=== PATIENT | female | born 1965 | race American Indian/Alaskan Native ===

== ENCOUNTER 2016-07-08 02:05 | Emergency (ER) | payer MEDICAID, OTHER ==
[2016-07-08] MEDS ORDERED: Ondansetron 4 MG/2 ML SDV IVPUSH ONE (02:51)
[2016-07-08] MEDS ORDERED: MVI, Adult with Vitamin K 10 ML, Thiamine 200 MG, Folic Acid 1 MG, Magnesium Sulfate 2 ... IV ONE ×5 (02:53)
[2016-07-08] MEDS: LORazepam 2 MG/ML MDV IVPUSH PRN ×2 (03:05→06:50)
[2016-07-08] MEDS ORDERED: Sodium Chloride 0.9% 10 ML Syringe FLUSH PRN (03:05)
--- NOTE | 2016-07-08 03:10 | EDM.PDOC ---
ED HPI GENERAL MEDICAL PROBLEM - General Chief Complaint: Behavioral/Psych Stated Complaint: MEDICAL VIA [facility] Time Seen by Provider: 07/08/16 03:05 Source of Information: Reports: Patient, Old records, RN notes reviewed History Limitations: Reports: No limitations - History of Present Illness INITIAL COMMENTS - FREE TEXT/NARRATIVE: 51-year-old female presents emergency department today complaining of alcohol withdrawal last used alcohol 3 hours prior has been on a 3 week binge of alcohol is willing to go to [facility] facility, complains of nausea vomiting and shaking Generalized Pain Score (Numeric/FACES): 6 - Related Data Allergies Allergy/AdvReac Type Severity Reaction Status Date / Time niacin Allergy Hives Verified 07/08/16 02:17 Penicillins Allergy Hives Verified 07/08/16 02:17 lisinopril AdvReac Cough Verified 07/08/16 02:17 Home Meds: Home Meds Ascorbic Acid [Vitamin C] 500 mg PO DAILY 09/11/14 [History] Aspirin [Aspirin EC] 81 mg PO DAILY 09/11/14 [History] DULoxetine [Cymbalta] 30 mg PO DAILY 09/11/14 [History] Gabapentin 600 mg PO QID 09/11/14 [History] Insulin Detemir [Levemir Flextouch] 50 units SQ BID 09/11/14 [History] LORazepam 1 - 2 mg PO QID PRN 09/11/14 [History] Losartan [Cozaar] 100 mg PO DAILY 09/11/14 [History] Metoprolol Succinate [Toprol XL] 25 mg PO DAILY 09/11/14 [History] Multivitamins/Iron/Folic Acid [Cerovite Advanced Formula] 1 tab PO DAILY [History] Insulin Aspart [Novolog Flexpen] 1 dose SUBCUT ASDIRECTED 04/07/15 [History] Omeprazole 20 mg PO DAILY 07/08/16 [History] Past Medical History Cardiovascular History: Reports: CAD, High cholesterol, Hypertension, [place] Gastrointestinal History: Reports: Cholelithiasis Other Genitourinary History: decreased kidney function [employer] History: Reports: Dysfunctional uterine bleeding, , Other (see below) Other OB/BYN History: Past heavy vaginal bleeding Musculoskeletal History: Reports: Back pain, chronic Other Musculoskeletal History: spinal infection Neurological History: Reports: Concussion Other Neuro History: unable to obtain Psychiatric History: Reports: Addiction (Alcohol), Anxiety, Depression Endocrine/Metabolic History: Reports: Diabetes, type II Hematologic History: Reports: Blood transfusion(s) Other Hematologic History: unable to obtain Dermatologic History: Reports: Psoriasis - Infectious Disease History Infectious Disease History: Reports: Chicken pox, Measles, Mumps Other Infectious Disease History: unable to obtain - Past Surgical History GI Surgical History: Reports: Appendectomy, Cholecystectomy Social & Family History - Family History Family Medical History: Unobtainable - Tobacco Use Smoking Status *Q: Current Every Day Smoker Years of Tobacco use: 30 Packs/Tins Daily: 0.5 Used Tobacco, but Quit: No Second Hand Smoke Exposure: Yes - Caffeine Use Caffeine Use: Reports: Coffee, Soda - Alcohol Use Days Per Week of Alcohol Use: 7 Number of Drinks Per Day: 20 Total Drinks Per Week: 140 Date of Last Drink: 07/08/16 Time of Last Drink: 00:30 - Recreational Drug Use Recreational Drug Use: No Recreational Drug Use Frequency: Patient Refuses To Answer ED ROS GENERAL - Review of Systems Review Of Systems: See Below Constitutional: Reports: decreased appetite HEENT: Reports: No symptoms Respiratory: Reports: No Symptoms Cardiovascular: Reports: No symptoms GI/Abdominal: Reports: Nausea, Vomiting : Reports: no symptoms Musculoskeletal: Reports: no symptoms Skin: Reports: no symptoms Neurological: Reports: Tremors Psychiatric: Reports: Agitation ED EXAM, GENERAL - Physical Exam Exam: See Below Exam Limited By: No limitations General Appearance: alert, moderate distress Eye Exam: bilateral eye: normal inspection Throat/Mouth: Normal inspection, Normal lips, Normal teeth, Normal gums, Normal oropharynx, Normal voice, No airway compromise Head: atraumatic, normocephalic Neck: normal inspection, supple, non-tender, full range of motion Respiratory/Chest: no respiratory distress, lungs clear, normal breath sounds, no accessory muscle use Cardiovascular: regular rate, rhythm, no murmur GI/Abdominal: normal bowel sounds, soft, non tender, no organomegaly, no distention, no abnormal bruit, no mass Extremities: normal inspection, no pedal edema Course - Vital Signs Last Recorded V/S: Last Vital Signs Temp 97.2 F 07/08/16 06:13 Pulse 121 H 07/08/16 06:13 Resp 16 07/08/16 06:13 BP 142/86 H 07/08/16 06:13 Pulse Ox 99 07/08/16 06:13 - Orders/Labs/Meds Orders: Active Orders 24 hr Category Date Time Status Peripheral IV Care [RC] . DIRECTED Care 07/08/16 03:05 Active LORazepam [Ativan] Med 07/08/16 02:51 Active 1 mg IVPUSH Q1H PRN Sodium Chloride 0.9% [Saline Flush] Med 07/08/16 03:05 Active 10 ml FLUSH ASDIRECTED PRN Peripheral IV Insertion Adult [OM.PC] Urgent Oth 07/08/16 03:05 Ordered Medication Orders Lorazepam (Ativan) 1 mg IVPUSH Q1H PRN PRN Reason: Anxiety Last Admin: 07/08/16 03:05 Dose: 1 mg Sodium Chloride (Saline Flush) 10 ml FLUSH ASDIRECTED PRN PRN Reason: Keep Vein Open Labs: Laboratory Tests 07/08/16 07/08/16 07/08/16 Range/Units 03:16 03:16 03:16 WBC 10.1 (4.5-11.0) K/uL RBC 4.21 (3.30-5.50) M/uL Hgb 12.4 D (12.0-15.0) g/dL Hct 37.2 (36.0-48.0) % MCV 88 (80-98) fL MCH 30 (27-31) pg MCHC 33 (32-36) % Plt Count 188 (150-400) K/uL Neut % (Auto) 65 (36-66) % Lymph % (Auto) 28 (24-44) % [place] % (Auto) 6 (2-6) % Eos % (Auto) 1 L (2-4) % Baso % (Auto) 1 (0-1) % PT (9.5-12.0) sec INR (0.80-1.20) Sodium 141 (140-148) mmol/L Potassium 4.1 (3.6-5.2) mmol/L Chloride 100 (100-108) mmol/L Carbon Dioxide 27 (21-32) mmol/L Anion Gap 13.6 (5.0-14.0) mmol/L BUN 11 (7-18) mg/dL Creatinine 0.9 (0.6-1.0) mg/dL Est Cr Clr Drug Dosing 64.58 mL/min Estimated GFR (MDRD) > 60 (>60) Glucose 349 H (74-106) mg/dL Calcium 8.5 (8.5-10.1) mg/dL Total Bilirubin 0.4 D (0.2-1.0) mg/dL AST 41 H (15-37) U/L ALT 43 (12-78) U/L Alkaline Phosphatase 135 H (46-116) U/L Ammonia (11-32) mmol/L Troponin I (0.000-0.056) ng/mL Total Protein 8.2 (6.4-8.2) g/dL Albumin 3.8 (3.4-5.0) g/dL Globulin 4.4 H (2.3-3.5) g/dL Albumin/Globulin Ratio 0.9 L (1.2-2.2) Lipase (73-393) U/L Urine Color Urine Appearance Urine pH (4.5-8.0) Ur Specific [place] (1.008-1.030) Urine Protein (NEGATIVE) mg/dL Urine Glucose (UA) (NEGATIVE) mg/dL Urine Ketones (NEGATIVE) mg/dL Urine Occult Blood (NEGATIVE) Urine Nitrite (NEGATIVE) Urine Bilirubin (NEGATIVE) Urine Urobilinogen (NORMAL) mg/dL Ur Leukocyte Esterase (NEGATIVE) Urine RBC (0-5) Urine WBC (0-5) Ur Epithelial Cells Amorphous Sediment Urine Bacteria Urine Mucus Urine Opiates Screen (NEGATIVE) Ur Oxycodone Screen (NEGATIVE) Urine Methadone Screen (NEGATIVE) Ur Propoxyphene Screen (NEGATIVE) Ur Barbiturates Screen (NEGATIVE) Ur Tricyclics Screen (NEGATIVE) Ur Phencyclidine Scrn (NEGATIVE) Ur Amphetamine Screen (NEGATIVE) U Methamphetamines Scrn (NEGATIVE) Urine MDMA Screen (NEGATIVE) U Benzodiazepines Scrn (NEGATIVE) U Cocaine Metab Screen (NEGATIVE) U Marijuana (THC) Screen (NEGATIVE) Ethyl Alcohol 119 mg/dL 07/08/16 07/08/16 07/08/16 Range/Units 03:16 03:16 03:16 WBC (4.5-11.0) K/uL RBC (3.30-5.50) M/uL Hgb (12.0-15.0) g/dL Hct (36.0-48.0) % MCV (80-98) fL MCH (27-31) pg MCHC (32-36) % Plt Count (150-400) K/uL Neut % (Auto) (36-66) % Lymph % (Auto) (24-44) % [place] % (Auto) (2-6) % Eos % (Auto) (2-4) % Baso % (Auto) (0-1) % PT 11.5 (9.5-12.0) sec INR 1.08 (0.80-1.20) Sodium (140-148) mmol/L Potassium (3.6-5.2) mmol/L Chloride (100-108) mmol/L Carbon Dioxide (21-32) mmol/L Anion Gap (5.0-14.0) mmol/L BUN (7-18) mg/dL Creatinine (0.6-1.0) mg/dL Est Cr Clr Drug Dosing mL/min Estimated GFR (MDRD) (>60) Glucose (74-106) mg/dL Calcium (8.5-10.1) mg/dL Total Bilirubin (0.2-1.0) mg/dL AST (15-37) U/L ALT (12-78) U/L Alkaline Phosphatase (46-116) U/L Ammonia 18 (11-32) mmol/L Troponin I (0.000-0.056) ng/mL Total Protein (6.4-8.2) g/dL Albumin (3.4-5.0) g/dL Globulin (2.3-3.5) g/dL Albumin/Globulin Ratio (1.2-2.2) Lipase 207 (73-393) U/L Urine Color Urine Appearance Urine pH (4.5-8.0) Ur Specific [place] (1.008-1.030) Urine Protein (NEGATIVE) mg/dL Urine Glucose (UA) (NEGATIVE) mg/dL Urine Ketones (NEGATIVE) mg/dL Urine Occult Blood (NEGATIVE) Urine Nitrite (NEGATIVE) Urine Bilirubin (NEGATIVE) Urine Urobilinogen (NORMAL) mg/dL Ur Leukocyte Esterase (NEGATIVE) Urine RBC (0-5) Urine WBC (0-5) Ur Epithelial Cells Amorphous Sediment Urine Bacteria Urine Mucus Urine Opiates Screen (NEGATIVE) Ur Oxycodone Screen (NEGATIVE) Urine Methadone Screen (NEGATIVE) Ur Propoxyphene Screen (NEGATIVE) Ur Barbiturates Screen (NEGATIVE) Ur Tricyclics Screen (NEGATIVE) Ur Phencyclidine Scrn (NEGATIVE) Ur Amphetamine Screen (NEGATIVE) U Methamphetamines Scrn (NEGATIVE) Urine MDMA Screen (NEGATIVE) U Benzodiazepines Scrn (NEGATIVE) U Cocaine Metab Screen (NEGATIVE) U Marijuana (THC) Screen (NEGATIVE) Ethyl Alcohol mg/dL 07/08/16 07/08/16 07/08/16 Range/Units 03:16 06:11 06:12 WBC (4.5-11.0) K/uL RBC (3.30-5.50) M/uL Hgb (12.0-15.0) g/dL Hct (36.0-48.0) % MCV (80-98) fL MCH (27-31) pg MCHC (32-36) % Plt Count (150-400) K/uL Neut % (Auto) (36-66) % Lymph % (Auto) (24-44) % [place] % (Auto) (2-6) % Eos % (Auto) (2-4) % Baso % (Auto) (0-1) % PT (9.5-12.0) sec INR (0.80-1.20) Sodium (140-148) mmol/L Potassium (3.6-5.2) mmol/L Chloride (100-108) mmol/L Carbon Dioxide (21-32) mmol/L Anion Gap (5.0-14.0) mmol/L BUN (7-18) mg/dL Creatinine (0.6-1.0) mg/dL Est Cr Clr Drug Dosing mL/min Estimated GFR (MDRD) (>60) Glucose (74-106) mg/dL Calcium (8.5-10.1) mg/dL Total Bilirubin (0.2-1.0) mg/dL AST (15-37) U/L ALT (12-78) U/L Alkaline Phosphatase (46-116) U/L Ammonia (11-32) mmol/L Troponin I 0.064 H* (0.000-0.056) ng/mL Total Protein (6.4-8.2) g/dL Albumin (3.4-5.0) g/dL Globulin (2.3-3.5) g/dL Albumin/Globulin Ratio (1.2-2.2) Lipase (73-393) U/L Urine Color Yellow Urine Appearance Clear Urine pH 6.0 (4.5-8.0) Ur Specific [place] 1.015 (1.008-1.030) Urine Protein Negative (NEGATIVE) mg/dL Urine Glucose (UA) 1000 H (NEGATIVE) mg/dL Urine Ketones Negative (NEGATIVE) mg/dL Urine Occult Blood Negative (NEGATIVE) Urine Nitrite Negative (NEGATIVE) Urine Bilirubin Negative (NEGATIVE) Urine Urobilinogen Normal (NORMAL) mg/dL Ur Leukocyte Esterase Negative (NEGATIVE) Urine RBC 0-5 (0-5) Urine WBC 0-5 (0-5) Ur Epithelial Cells Few Amorphous Sediment Few Urine Bacteria Rare Urine Mucus Few Urine Opiates Screen Negative (NEGATIVE) Ur Oxycodone Screen Negative (NEGATIVE) Urine Methadone Screen Negative (NEGATIVE) Ur Propoxyphene Screen Negative (NEGATIVE) Ur Barbiturates Screen Negative (NEGATIVE) Ur Tricyclics Screen Negative (NEGATIVE) Ur Phencyclidine Scrn Negative (NEGATIVE) Ur Amphetamine Screen Negative (NEGATIVE) U Methamphetamines Scrn Negative (NEGATIVE) Urine MDMA Screen Negative (NEGATIVE) U Benzodiazepines Scrn Positive H (NEGATIVE) U Cocaine Metab Screen Negative (NEGATIVE) U Marijuana (THC) Screen Negative (NEGATIVE) Ethyl Alcohol mg/dL Meds: Medications Generic Name Dose Route Start Last Admin Trade Name Freq PRN Reason Stop Dose Admin Lorazepam 1 mg 07/08/16 02:51 07/08/16 03:05 Ativan IVPUSH 1 mg Q1H PRN Administration Anxiety Sodium Chloride 10 ml 07/08/16 03:05 Saline Flush FLUSH ASDIRECTED PRN Keep Vein Open Discontinued Medications Generic Name Dose Route Start Last Admin Trade Name Freq PRN Reason Stop Dose Admin Multivitamins/Minerals 10 ml/ 1,016.2 mls @ 500 mls/hr 07/08/16 02:53 03:21 Thiamine HCl 200 mg/ Folic IV 07/08/16 04:54 500 mls/hr Acid 1 mg/ Magnesium Sulfate 2 ONETIME ONE Administration gm/ Dextrose/Lactated Ringer' s Ondansetron HCl 4 mg 07/08/16 02:51 07/08/16 03:25 Zofran IVPUSH 07/08/16 02:52 4 mg ONETIME ONE Administration Departure - Departure Time of Disposition: 06:43 Disposition: DC/Tfer to Inpt Rehab Fac 62 Condition: fair Clinical Impression: Alcohol abuse Referrals: PCP,None [Primary Care Provider] - Forms: ED Department Discharge - My Orders Last 24 Hours: My Active Orders 07/08/16 02:51 LORazepam [Ativan] 1 mg IVPUSH Q1H PRN 07/08/16 03:05 Peripheral IV Care [RC] . DIRECTED Sodium Chloride 0.9% [Saline Flush] 10 ml FLUSH ASDIRECTED PRN Peripheral IV Insertion Adult [OM.PC] Urgent - Assessment/Plan Last 24 Hours: My Active Orders 07/08/16 02:51 LORazepam [Ativan] 1 mg IVPUSH Q1H PRN 07/08/16 03:05 Peripheral IV Care [RC] . DIRECTED Sodium Chloride 0.9% [Saline Flush] 10 ml FLUSH ASDIRECTED PRN Peripheral IV Insertion Adult [OM.PC] Urgent Plan: Assessment Acuity = chronic Site and laterality = alcohol abuse and dependence Etiology = EtOH Manifestations = none Location of injury = home Lab values = CBC, CMP within normal limits troponin elevated at 0.64 this is chronic, alcohol 113 Plan She will be transported to [facility] in the morning for detoxification Patient was in agreement with the plan all questions were answered, they were instructed to return to the emergency department or call for worsening symptoms. This note was dictated using [employer] voice recognition software please call with any questions.
[2016-07-08 06:55] VITALS: BP 148/84
== END 2016-07-08 07:06 ==
LOC: JP.ED 02:05
DX: F10.10 Alcohol abuse, uncomplicated (principal); I25.2 Old myocardial infarction; I25.10 Atherosclerotic heart disease of native coronary artery without angina pectoris; I10 Essential (primary) hypertension; F41.9 Anxiety disorder, unspecified; F32.9 Major depressive disorder, single episode, unspecified; E78.00 Pure hypercholesterolemia, unspecified; E11.9 Type 2 diabetes mellitus without complications; F17.210 Nicotine dependence, cigarettes, uncomplicated; Z79.82 Long term (current) use of aspirin; Z79.4 Long term (current) use of insulin; Z79.899 Other long term (current) drug therapy; Z90.49 Acquired absence of other specified parts of digestive tract; Z88.0 Allergy status to penicillin; Z88.8 Allergy status to other drugs, medicaments and biological substances
CPT/HCPCS: 36415; 80053; 80305; 81001; 82140; 83690; 84484; 85025; 85610; 96365; 96366; 96375; 99285; G0480; J2060; J2405; J3411; J3475; J7042; J7050; J3490

== ENCOUNTER 2016-11-02 23:48 | Emergency (ER) | payer MEDICAID ==
[2016-11-03] MEDS ORDERED: Ondansetron 4 MG/2 ML SDV IVPUSH ONE (00:30)
[2016-11-03] MEDS ORDERED: LORazepam 2 MG/ML MDV IVPUSH ONE (00:30)
--- NOTE | 2016-11-03 00:33 | EDM.PDOC ---
ED HPI GENERAL MEDICAL PROBLEM - General Chief Complaint: Diabetic Complaint Stated Complaint: [facility] Time Seen by Provider: 11/03/16 00:22 Source of Information: Reports: Patient, Family, RN Notes Reviewed History Limitations: Reports: No Limitations - History of Present Illness INITIAL COMMENTS - FREE TEXT/NARRATIVE: 51-year-old female presents emergency department today via EMS services for elevated blood sugar, initial reading by blood sugar was off the scale she states she's concerned she may be getting sick has been having trouble with her blood sugar over the last couple of days denies any fevers shortness breath or chest pain. Is quite anxious and is concerned she may be having a panic attack back pain Pain Score (Numeric/FACES): 7 - Related Data Allergies Allergy/AdvReac Type Severity Reaction Status Date / Time niacin Allergy Hives Verified 11/03/16 00:01 Penicillins Allergy Hives Verified 11/03/16 00:01 lisinopril AdvReac Cough Verified 11/03/16 00:01 Home Meds: Home Meds Ascorbic Acid [Vitamin C] 500 mg PO DAILY 09/11/14 [History] Aspirin [Aspirin EC] 81 mg PO DAILY 09/11/14 [History] DULoxetine [Cymbalta] 30 mg PO DAILY 09/11/14 [History] Gabapentin 600 mg PO QID 09/11/14 [History] Insulin Detemir [Levemir Flextouch] 50 units SQ BID 09/11/14 [History] LORazepam 1 - 2 mg PO QID PRN 09/11/14 [History] Losartan [Cozaar] 100 mg PO DAILY 09/11/14 [History] Metoprolol Succinate [Toprol XL] 25 mg PO DAILY 09/11/14 [History] Multivitamins/Iron/Folic Acid [Cerovite Advanced Formula] 1 tab PO DAILY [History] Insulin Aspart [Novolog Flexpen] 1 dose SUBCUT ASDIRECTED 04/07/15 [History] Omeprazole 20 mg PO DAILY 07/08/16 [History] Past Medical History HEENT History: Reports: Impaired Vision Cardiovascular History: Reports: CAD, High Cholesterol, Hypertension, [place] Gastrointestinal History: Reports: Cholelithiasis Genitourinary History: Reports: Other (See Below) Other Genitourinary History: decreased kidney function [employer] History: Reports: Dysfunctional Uterine Bleeding, , Other (See Below) Other OB/BYN History: Past heavy vaginal bleeding Musculoskeletal History: Reports: Back Pain, Chronic Other Musculoskeletal History: spinal infection Neurological History: Reports: Concussion Other Neuro History: unable to obtain Psychiatric History: Reports: Addiction, Anxiety, Depression Endocrine/Metabolic History: Reports: Diabetes, Type II Hematologic History: Reports: Blood Transfusion(s) Other Hematologic History: unable to obtain Immunologic History: Reports: Other (See Below) Other Immunologic History: unable to obtain Oncologic (Cancer) History: Reports: Other (See Below) Other Oncologic History: unable to obtain Dermatologic History: Reports: Psoriasis - Infectious Disease History Infectious Disease History: Reports: Chicken Pox, Mumps Other Infectious Disease History: unable to obtain - Past Surgical History HEENT Surgical History: Reports: None Cardiovascular Surgical History: Reports: None GI Surgical History: Reports: Appendectomy, Cholecystectomy Social & Family History - Family History Family Medical History: Unobtainable - Tobacco Use Smoking Status *Q: Current Every Day Smoker Years of Tobacco use: 40 Packs/Tins Daily: 1 Used Tobacco, but Quit: No Second Hand Smoke Exposure: Yes - Caffeine Use Caffeine Use: Reports: Coffee, Energy Drinks, Soda, Tea - Alcohol Use Days Per Week of Alcohol Use: 7 Number of Drinks Per Day: 20 Total Drinks Per Week: 140 - Recreational Drug Use Recreational Drug Use: No Recreational Drug Use Frequency: Patient Refuses To Answer ED ROS GENERAL - Review of Systems Review Of Systems: See Below Constitutional: Denies: Fever, Chills HEENT: Reports: No Symptoms Respiratory: Reports: No Symptoms Cardiovascular: Reports: No Symptoms Endocrine: Reports: High Glucose GI/Abdominal: Reports: Nausea : Reports: No Symptoms Musculoskeletal: Reports: No Symptoms Skin: Reports: No Symptoms Neurological: Reports: No Symptoms ED EXAM GENERAL NO PERIP PULSE - Physical Exam Exam: See Below Text/Narrative:: General: Female, somnolent but arousable will answer questions appropriately, alert and oriented x3 HEENT: head is atraumatic normocephalic, . Ears tympanic membranes clear and turcios landmarks and light reflex are present bilaterally canals are clear. Nose no septal deviation, nares are clear, no blood present. Mouth mucosa is moist and pink no erythema or exudate noted in soft palate, tongue is midline uvula is midline, dentition is intact. Neck: Supple no thyromegaly no tracheal deviation. Nodes: Cervical nodes subclavicular nodes nontender no palpable lymphadenopathy noted. Lungs: clear to auscultation bilaterally with symmetrical respirations, no adventitious noise appreciated. CV: Regular rate and rhythm S1 and S2 appreciated no murmurs rubs or gallops noted. Abdomen: Soft, nontender, no palpable masses or organomegaly appreciated, no distention no guarding bowel sounds are present, . Neuro: Cranial nerves II through XII grossly intact Skin: Warm and dry, intact Extremities: No lower extremity edema appreciated, . Course - Vital Signs Last Recorded V/S: Last Vital Signs Temp 97.7 F 11/03/16 06:39 Pulse 105 H 11/03/16 06:39 Resp 16 11/03/16 06:39 BP 104/61 11/03/16 06:39 Pulse Ox 94 L 11/03/16 06:39 - Orders/Labs/Meds Labs: Laboratory Tests 11/03/16 11/03/16 11/03/16 Range/Units 00:40 00:40 00:40 WBC 8.2 (4.5-11.0) K/uL RBC 4.21 (3.30-5.50) M/uL Hgb 12.4 (12.0-15.0) g/dL Hct 36.4 (36.0-48.0) % MCV 87 (80-98) fL MCH 30 (27-31) pg MCHC 34 (32-36) % Plt Count 165 (150-400) K/uL Neut % (Auto) 63 (36-66) % Lymph % (Auto) 27 (24-44) % [place] % (Auto) 9 H (2-6) % Eos % (Auto) 0 L (2-4) % Baso % (Auto) 1 (0-1) % Puncture Site R brachial ABG pH 7.391 (7.350-7.450) ABG pCO2 39.2 (35.0-42.0) mmHg ABG pO2 66.0 L (75.0-100.0) mmHg ABG HCO3 23.2 (22.0-26.0) mmol/L ABG Total CO2 21.0 (21.0-25.0) mmol/L ABG O2 Saturation 91.1 L (95.0-98.0) % ABG O2 Content 15.1 (15.0-23.0) %vol ABG Base Excess -1.0 mm/L ABG Hemoglobin 12.5 (12.0-16.0) g/dL ABG Oxyhemoglobin 85.9 % ABG Carboxyhemoglobin 5.1 H (0.0-1.6) % ABG Methemoglobin 0.6 % O2 Delivery Device Oxygen Flow Rate 2 L Sodium 133 L (140-148) mmol/L Potassium 3.5 L (3.6-5.2) mmol/L Chloride 94 L (100-108) mmol/L Carbon Dioxide 24 (21-32) mmol/L Anion Gap 18.5 H (5.0-14.0) mmol/L BUN 11 (7-18) mg/dL Creatinine 1.3 H (0.6-1.0) mg/dL Est Cr Clr Drug Dosing TNP Estimated GFR (MDRD) 43 L (>60) Glucose 566 H* (74-106) mg/dL Lactic Acid (0.4-2.0) mmol/L Calcium 8.6 (8.5-10.1) mg/dL Total Bilirubin 0.3 (0.2-1.0) mg/dL AST 22 (15-37) U/L ALT 26 (12-78) U/L Alkaline Phosphatase 202 H (46-116) U/L Total Protein 8.1 (6.4-8.2) g/dL Albumin 3.2 L (3.4-5.0) g/dL Globulin 4.9 H (2.3-3.5) g/dL Albumin/Globulin Ratio 0.7 L (1.2-2.2) Urine Color Urine Appearance Urine pH (4.5-8.0) Ur Specific [place] (1.008-1.030) Urine Protein (NEGATIVE) mg/dL Urine Glucose (UA) (NEGATIVE) mg/dL Urine Ketones (NEGATIVE) mg/dL Urine Occult Blood (NEGATIVE) Urine Nitrite (NEGATIVE) Urine Bilirubin (NEGATIVE) Urine Urobilinogen (NORMAL) mg/dL Ur Leukocyte Esterase (NEGATIVE) Urine RBC (0-5) Urine WBC (0-5) Ur Epithelial Cells Amorphous Sediment Urine Bacteria Urine Mucus Ethyl Alcohol mg/dL Ketones (NEGATIVE) 11/03/16 11/03/16 11/03/16 Range/Units 00:40 00:40 00:40 WBC (4.5-11.0) K/uL RBC (3.30-5.50) M/uL Hgb (12.0-15.0) g/dL Hct (36.0-48.0) % MCV (80-98) fL MCH (27-31) pg MCHC (32-36) % Plt Count (150-400) K/uL Neut % (Auto) (36-66) % Lymph % (Auto) (24-44) % [place] % (Auto) (2-6) % Eos % (Auto) (2-4) % Baso % (Auto) (0-1) % Puncture Site ABG pH (7.350-7.450) ABG pCO2 (35.0-42.0) mmHg ABG pO2 (75.0-100.0) mmHg ABG HCO3 (22.0-26.0) mmol/L ABG Total CO2 (21.0-25.0) mmol/L ABG O2 Saturation (95.0-98.0) % ABG O2 Content (15.0-23.0) %vol ABG Base Excess mm/L ABG Hemoglobin (12.0-16.0) g/dL ABG Oxyhemoglobin % ABG Carboxyhemoglobin (0.0-1.6) % ABG Methemoglobin % O2 Delivery Device Oxygen Flow Rate L Sodium (140-148) mmol/L Potassium (3.6-5.2) mmol/L Chloride (100-108) mmol/L Carbon Dioxide (21-32) mmol/L Anion Gap (5.0-14.0) mmol/L BUN (7-18) mg/dL Creatinine (0.6-1.0) mg/dL Est Cr Clr Drug Dosing Estimated GFR (MDRD) (>60) Glucose (74-106) mg/dL Lactic Acid 3.6 H (0.4-2.0) mmol/L Calcium (8.5-10.1) mg/dL Total Bilirubin (0.2-1.0) mg/dL AST (15-37) U/L ALT (12-78) U/L Alkaline Phosphatase (46-116) U/L Total Protein (6.4-8.2) g/dL Albumin (3.4-5.0) g/dL Globulin (2.3-3.5) g/dL Albumin/Globulin Ratio (1.2-2.2) Urine Color Urine Appearance Urine pH (4.5-8.0) Ur Specific [place] (1.008-1.030) Urine Protein (NEGATIVE) mg/dL Urine Glucose (UA) (NEGATIVE) mg/dL Urine Ketones (NEGATIVE) mg/dL Urine Occult Blood (NEGATIVE) Urine Nitrite (NEGATIVE) Urine Bilirubin (NEGATIVE) Urine Urobilinogen (NORMAL) mg/dL Ur Leukocyte Esterase (NEGATIVE) Urine RBC (0-5) Urine WBC (0-5) Ur Epithelial Cells Amorphous Sediment Urine Bacteria Urine Mucus Ethyl Alcohol 240 mg/dL Ketones Negative (NEGATIVE) 11/03/16 Range/Units 00:58 WBC (4.5-11.0) K/uL RBC (3.30-5.50) M/uL Hgb (12.0-15.0) g/dL Hct (36.0-48.0) % MCV (80-98) fL MCH (27-31) pg MCHC (32-36) % Plt Count (150-400) K/uL Neut % (Auto) (36-66) % Lymph % (Auto) (24-44) % [place] % (Auto) (2-6) % Eos % (Auto) (2-4) % Baso % (Auto) (0-1) % Puncture Site ABG pH (7.350-7.450) ABG pCO2 (35.0-42.0) mmHg ABG pO2 (75.0-100.0) mmHg ABG HCO3 (22.0-26.0) mmol/L ABG Total CO2 (21.0-25.0) mmol/L ABG O2 Saturation (95.0-98.0) % ABG O2 Content (15.0-23.0) %vol ABG Base Excess mm/L ABG Hemoglobin (12.0-16.0) g/dL ABG Oxyhemoglobin % ABG Carboxyhemoglobin (0.0-1.6) % ABG Methemoglobin % O2 Delivery Device Oxygen Flow Rate L Sodium (140-148) mmol/L Potassium (3.6-5.2) mmol/L Chloride (100-108) mmol/L Carbon Dioxide (21-32) mmol/L Anion Gap (5.0-14.0) mmol/L BUN (7-18) mg/dL Creatinine (0.6-1.0) mg/dL Est Cr Clr Drug Dosing Estimated GFR (MDRD) (>60) Glucose (74-106) mg/dL Lactic Acid (0.4-2.0) mmol/L Calcium (8.5-10.1) mg/dL Total Bilirubin (0.2-1.0) mg/dL AST (15-37) U/L ALT (12-78) U/L Alkaline Phosphatase (46-116) U/L Total Protein (6.4-8.2) g/dL Albumin (3.4-5.0) g/dL Globulin (2.3-3.5) g/dL Albumin/Globulin Ratio (1.2-2.2) Urine Color Yellow Urine Appearance Clear Urine pH 6.0 (4.5-8.0) Ur Specific [place] 1.005 L (1.008-1.030) Urine Protein Negative (NEGATIVE) mg/dL Urine Glucose (UA) >1000 H (NEGATIVE) mg/dL Urine Ketones Negative (NEGATIVE) mg/dL Urine Occult Blood Negative (NEGATIVE) Urine Nitrite Negative (NEGATIVE) Urine Bilirubin Negative (NEGATIVE) Urine Urobilinogen Normal (NORMAL) mg/dL Ur Leukocyte Esterase Negative (NEGATIVE) Urine RBC 0-5 (0-5) Urine WBC 5-10 H (0-5) Ur Epithelial Cells Few Amorphous Sediment Not seen Urine Bacteria Many Urine Mucus Not seen Ethyl Alcohol mg/dL Ketones (NEGATIVE) Meds: Medications Discontinued Medications Generic Name Dose Route Start Last Admin Trade Name Radha PRN Reason Stop Dose Admin Insulin Human Regular 10 unit 11/03/16 01:41 11/03/16 02:19 Novolin R IVPUSH 11/03/16 01:42 10 units ONETIME ONE Administration Protocol Insulin Human Regular 5 unit 11/03/16 03:04 11/03/16 03:57 Novolin R IVPUSH 11/03/16 03:05 5 units ONETIME ONE Administration Protocol Lorazepam 1 mg 11/03/16 00:30 11/03/16 00:51 Ativan IVPUSH 11/03/16 00:31 1 mg ONETIME ONE Administration Ondansetron HCl 4 mg 11/03/16 00:30 11/03/16 00:51 Zofran IVPUSH 11/03/16 00:31 4 mg ONETIME ONE Administration Departure - Departure Time of Disposition: 06:53 Disposition: Home, Self-Care 01 Condition: Poor Clinical Impression: Diabetes mellitus type 2, insulin dependent, Alcohol abuse, Hyperglycemia - Discharge Information Forms: ED Department Discharge Additional Instructions: Please followup with your primary care provider in 3-5 days if not better, please call return to the emergency department with worsening of symptoms. - Assessment/Plan Plan: Assessment Acuity = acute Site and laterality = intoxication with hyperglycemia complicated patient with known history of diabetes mellitus type 2 and alcohol abuse and dependence Etiology = probably related to medication use Manifestations = none Location of injury = Home Lab values = CBC unremarkable ABG reveals pH of 7.39 PCO2 to 39.2 PO2 of 66 and a bicarbonate 22.2 within normal limits sodium low at 133 consistent hyponatremia potassium low at 3.5 consistent hypokalemia creatinine elevated 1.3 consistent with chronic renal failure stage G IIIB initial glucose was 566 after treatment came down to 366 second treatment insolent down to 225 lactic acid elevated at 3.6 consistent lactic acidosis albumin low at 2.2 consistent hypoalbuminemia urinalysis reveals thousand glucose consistent with glucosuria EtOH elevated at 240 and ketones are negative Plan She had good resolution with her glucose treatment with insulin plan is to discharge home follow-up with primary care 3-5 days if not better Patient was in agreement with the plan all questions were answered, they were instructed to return to the emergency department or call for worsening symptoms. This note was dictated using [employer] voice recognition software please call with any questions.
[2016-11-03] MEDS ORDERED: Insulin Regular, Human 100 Units/ML 10 ML Vial IVPUSH ONE ×2 (01:41→03:04)
[2016-11-03 06:40] VITALS: BP 104/61
== END 2016-11-03 07:17 | disposition home or self-care (01) ==
LOC: JP.ED 23:48
DX: E11.65 Type 2 diabetes mellitus with hyperglycemia (principal); F10.10 Alcohol abuse, uncomplicated; H54.7 Unspecified visual loss; I25.10 Atherosclerotic heart disease of native coronary artery without angina pectoris; E78.00 Pure hypercholesterolemia, unspecified; I10 Essential (primary) hypertension; I25.2 Old myocardial infarction; F41.9 Anxiety disorder, unspecified; F32.9 Major depressive disorder, single episode, unspecified; Z88.0 Allergy status to penicillin; Z88.1 Allergy status to other antibiotic agents; Z88.8 Allergy status to other drugs, medicaments and biological substances; Z79.899 Other long term (current) drug therapy; Z79.4 Long term (current) use of insulin
CPT/HCPCS: 36600; 80053; 81001; 82009; 82803; 82962; 83605; 85025; 96374; 96375; 99284; G0480; J2060; J2405; A9270-GY

== ENCOUNTER 2016-12-09 09:03 | Emergency (ER) | payer MEDICAID ==
[2016-12-09] MEDS ORDERED: Ondansetron 4 MG/2 ML SDV IVPUSH ONE (09:27)
[2016-12-09] MEDS ORDERED: Sodium Chloride 0.9% 1,000 ML IV SCH (09:30)
[2016-12-09] MEDS ORDERED: LORazepam 2 MG/ML MDV IVPUSH ONE ×2 (09:35→10:45)
[2016-12-09] MEDS ORDERED: Nitrofurantoin Monohydrate/Macrocrystalline 100 MG Cap PO ONE (11:12)
[2016-12-09] MEDS ORDERED: Insulin Regular, Human 100 Units/ML 10 ML Vial IVPUSH ONE (12:52)
--- NOTE | 2016-12-09 12:58 | EDM.PDOC ---
ED HPI GENERAL MEDICAL PROBLEM - General Chief Complaint: Chest Pain Stated Complaint: VOMITING/CHEST PAIN Time Seen by Provider: 12/09/16 09:20 Source of Information: Reports: Patient History Limitations: Reports: No Limitations - History of Present Illness INITIAL COMMENTS - FREE TEXT/NARRATIVE: History of present illness: [1 Santiago here to be medically cleared to go to detox. She presents tremulous and shaky. She is wanting to go to [facility]. She's been through detox before she is diabetic on insulin. She's had no fevers chills sweats of late no cough or cold symptoms no sore throat no nausea vomiting constipation diarrhea or dysuria.] Review of systems: As per history of present illness and below otherwise all systems reviewed and negative. Past medical history: As per history of present illness and as reviewed below otherwise noncontributory. Surgical history: As per history of present illness and as reviewed below otherwise noncontributory. Social history: No reported history of drug or alcohol abuse. Family history: As per history of present illness and as reviewed below otherwise noncontributory. Physical exam: HEENT: Atraumatic, normocephalic, pupils reactive, negative for conjunctival pallor or scleral icterus, mucous membranes moist, throat clear, neck supple, nontender, trachea midline. Lungs: Clear to auscultation, breath sounds equal bilaterally, chest nontender. Heart: S1S2, regular, negative for clicks, rubs, or JVD. Abdomen: Soft, nondistended, nontender. Negative for masses or hepatosplenomegaly. Negative for costovertebral tenderness. Pelvis: Stable nontender. Genitourinary: Deferred. Rectal: Deferred. Extremities: Atraumatic, negative for cords or calf pain. Neurovascular unremarkable. Neuro: Awake, alert, oriented. Cranial nerves II through XII unremarkable. Cerebellum unremarkable. Motor and sensory unremarkable throughout. Exam nonfocal. Diagnostics: [Urinalysis suggests that she does have a urinary tract infection I did give her 100 mg of Macrobid while she was here. She received IV fluids while here and 2 doses of Ativan 2 mg each and settled nicely with this. Her EKG initially showed a sinus tachycardia of 101 and a prolonged QT interval but no ectopy or dysrhythmia or current of injury or ischemia was noted.] Therapeutics: [Was again she received IV fluids while here and 2 doses of Ativan IV.] Impression: [Alcohol withdrawal] Plan: [She is cleared to go to [facility] for continuation of detox and rehabilitation.] Definitive disposition and diagnosis as appropriate pending reevaluation and review of above. Left Chest Pain Score (Numeric/FACES): 4 - Related Data Allergies Allergy/AdvReac Type Severity Reaction Status Date / Time niacin Allergy Hives Verified 11/03/16 00:01 Penicillins Allergy Hives Verified 11/03/16 00:01 lisinopril AdvReac Cough Verified 11/03/16 00:01 Home Meds: Home Meds Ascorbic Acid [Vitamin C] 500 mg PO DAILY 09/11/14 [History] Aspirin [Aspirin EC] 81 mg PO DAILY 09/11/14 [History] DULoxetine [Cymbalta] 30 mg PO DAILY 09/11/14 [History] Gabapentin 600 mg PO QID 09/11/14 [History] Insulin Detemir [Levemir Flextouch] 50 units SQ BID 09/11/14 [History] LORazepam 1 - 2 mg PO QID PRN 09/11/14 [History] Losartan [Cozaar] 100 mg PO DAILY 09/11/14 [History] Metoprolol Succinate [Toprol XL] 25 mg PO DAILY 09/11/14 [History] Multivitamins/Iron/Folic Acid [Cerovite Advanced Formula] 1 tab PO DAILY [History] Insulin Aspart [Novolog Flexpen] 1 dose SUBCUT ASDIRECTED 04/07/15 [History] Omeprazole 20 mg PO DAILY 07/08/16 [History] Past Medical History HEENT History: Reports: Impaired Vision Cardiovascular History: Reports: CAD, High Cholesterol, Hypertension, [place] Gastrointestinal History: Reports: Cholelithiasis Genitourinary History: Reports: Other (See Below) Other Genitourinary History: decreased kidney function [employer] History: Reports: Dysfunctional Uterine Bleeding, , Other (See Below) Other OB/BYN History: Past heavy vaginal bleeding Musculoskeletal History: Reports: Back Pain, Chronic Other Musculoskeletal History: spinal infection Neurological History: Reports: Concussion Other Neuro History: unable to obtain Psychiatric History: Reports: Addiction, Anxiety, Depression Endocrine/Metabolic History: Reports: Diabetes, Type II Hematologic History: Reports: Blood Transfusion(s) Other Hematologic History: unable to obtain Immunologic History: Reports: Other (See Below) Other Immunologic History: unable to obtain Oncologic (Cancer) History: Reports: Other (See Below) Other Oncologic History: unable to obtain Dermatologic History: Reports: Psoriasis - Infectious Disease History Infectious Disease History: Reports: MRSA Other Infectious Disease History: unable to obtain - Past Surgical History HEENT Surgical History: Reports: None Cardiovascular Surgical History: Reports: None GI Surgical History: Reports: Appendectomy, Cholecystectomy Social & Family History - Family History Family Medical History: Unobtainable - Tobacco Use Smoking Status *Q: Unknown Ever Smoked Years of Tobacco use: 40 Packs/Tins Daily: 1 Used Tobacco, but Quit: No Second Hand Smoke Exposure: Yes - Caffeine Use Caffeine Use: Reports: Coffee, Energy Drinks, Soda, Tea - Alcohol Use Days Per Week of Alcohol Use: 7 Number of Drinks Per Day: 20 Total Drinks Per Week: 140 - Recreational Drug Use Recreational Drug Use: No Recreational Drug Use Frequency: Patient Refuses To Answer ED ROS GENERAL - Review of Systems Review Of Systems: ROS reveals no pertinent complaints other than HPI. ED EXAM, GENERAL - Physical Exam Exam: See Below Course - Vital Signs Last Recorded V/S: Last Vital Signs Temp 36.9 C 12/09/16 09:09 Pulse 102 H 12/09/16 09:09 Resp 16 12/09/16 09:09 BP 144/84 H 12/09/16 09:09 Pulse Ox 97 12/09/16 09:09 - Orders/Labs/Meds Orders: Active Orders 24 hr Category Date Time Status EKG Documentation Completion [RC] ASDIRECTED Care 12/09/16 09:26 Active Chest 1V Frontal [CR] Stat Exams 12/09/16 09:25 Taken CULTURE URINE [RM] Stat Lab 12/09/16 11:44 Received Sodium Chloride 0.9% [Normal Saline] 1,000 ml Med 12/09/16 09:30 Active IV ASDIRECTED EKG 12 Lead [EK] Stat Ther 12/09/16 09:25 Ordered Medication Orders Sodium Chloride (Normal Saline) 1,000 mls @ 999 mls/hr IV ASDIRECTED KATHRINE Last Admin: 12/09/16 09:46 Dose: 500 mls/hr Labs: Laboratory Tests 12/09/16 12/09/16 12/09/16 Range/Units 09:25 09:25 09:25 WBC 7.2 (4.5-11.0) K/uL RBC 3.98 (3.30-5.50) M/uL Hgb 12.1 (12.0-15.0) g/dL Hct 36.2 (36.0-48.0) % MCV 91 (80-98) fL MCH 30 (27-31) pg MCHC 33 (32-36) % Plt Count 208 (150-400) K/uL Neut % (Auto) 75 H (36-66) % Lymph % (Auto) 13 L (24-44) % [place] % (Auto) 10 H (2-6) % Eos % (Auto) 1 L (2-4) % Baso % (Auto) 1 (0-1) % ABG Hemoglobin (12.0-16.0) g/dL ABG Oxyhemoglobin % ABG Carboxyhemoglobin (0.0-1.6) % ABG Methemoglobin % VBG pH (7.350-7.450) VBG pCO2 mm/Hg VBG pO2 mm/Hg VBG HCO3 mmol/L VBG Total CO2 mmol/L VBG O2 Saturation VBG O2 Content %vol VBG Base Excess mm/L O2 Delivery Device Troponin I 0.042 (0.000-0.056) ng/mL Urine Color Urine Appearance Urine pH (4.5-8.0) Ur Specific [place] (1.008-1.030) Urine Protein (NEGATIVE) mg/dL Urine Glucose (UA) (NEGATIVE) mg/dL Urine Ketones (NEGATIVE) mg/dL Urine Occult Blood (NEGATIVE) Urine Nitrite (NEGATIVE) Urine Bilirubin (NEGATIVE) Urine Urobilinogen (NORMAL) mg/dL Ur Leukocyte Esterase (NEGATIVE) Urine RBC (0-5) Urine WBC (0-5) Ur Epithelial Cells Amorphous Sediment Urine Bacteria Urine Mucus Salicylates 1.1 L (2.0-20.0) mg/dL Urine Opiates Screen (NEGATIVE) Ur Oxycodone Screen (NEGATIVE) Urine Methadone Screen (NEGATIVE) Ur Propoxyphene Screen (NEGATIVE) Acetaminophen 0.0 L (10.0-30.0) ug/mL Ur Barbiturates Screen (NEGATIVE) Ur Tricyclics Screen (NEGATIVE) Ur Phencyclidine Scrn (NEGATIVE) Ur Amphetamine Screen (NEGATIVE) U Methamphetamines Scrn (NEGATIVE) Urine MDMA Screen (NEGATIVE) U Benzodiazepines Scrn (NEGATIVE) U Cocaine Metab Screen (NEGATIVE) U Marijuana (THC) Screen (NEGATIVE) Ethyl Alcohol mg/dL 12/09/16 12/09/16 12/09/16 Range/Units 09:25 10:45 10:45 WBC (4.5-11.0) K/uL RBC (3.30-5.50) M/uL Hgb (12.0-15.0) g/dL Hct (36.0-48.0) % MCV (80-98) fL MCH (27-31) pg MCHC (32-36) % Plt Count (150-400) K/uL Neut % (Auto) (36-66) % Lymph % (Auto) (24-44) % [place] % (Auto) (2-6) % Eos % (Auto) (2-4) % Baso % (Auto) (0-1) % ABG Hemoglobin (12.0-16.0) g/dL ABG Oxyhemoglobin % ABG Carboxyhemoglobin (0.0-1.6) % ABG Methemoglobin % VBG pH (7.350-7.450) VBG pCO2 mm/Hg VBG pO2 mm/Hg VBG HCO3 mmol/L VBG Total CO2 mmol/L VBG O2 Saturation VBG O2 Content %vol VBG Base Excess mm/L O2 Delivery Device Troponin I (0.000-0.056) ng/mL Urine Color Yellow Urine Appearance Cloudy Urine pH 6.5 (4.5-8.0) Ur Specific [place] 1.010 (1.008-1.030) Urine Protein 30 H (NEGATIVE) mg/dL Urine Glucose (UA) 1000 H (NEGATIVE) mg/dL Urine Ketones Negative (NEGATIVE) mg/dL Urine Occult Blood Moderate (NEGATIVE) Urine Nitrite Positive H (NEGATIVE) Urine Bilirubin Negative (NEGATIVE) Urine Urobilinogen Normal (NORMAL) mg/dL Ur Leukocyte Esterase Large (NEGATIVE) Urine RBC Semi-packed H (0-5) Urine WBC Packed H (0-5) Ur Epithelial Cells Moderate Amorphous Sediment Few Urine Bacteria Many Urine Mucus Few Salicylates (2.0-20.0) mg/dL Urine Opiates Screen Negative (NEGATIVE) Ur Oxycodone Screen Negative (NEGATIVE) Urine Methadone Screen Negative (NEGATIVE) Ur Propoxyphene Screen Negative (NEGATIVE) Acetaminophen (10.0-30.0) ug/mL Ur Barbiturates Screen Negative (NEGATIVE) Ur Tricyclics Screen Negative (NEGATIVE) Ur Phencyclidine Scrn Negative (NEGATIVE) Ur Amphetamine Screen Negative (NEGATIVE) U Methamphetamines Scrn Negative (NEGATIVE) Urine MDMA Screen Negative (NEGATIVE) U Benzodiazepines Scrn Positive H (NEGATIVE) U Cocaine Metab Screen Negative (NEGATIVE) U Marijuana (THC) Screen Negative (NEGATIVE) Ethyl Alcohol < 3 mg/dL 12/09/16 Range/Units 10:59 WBC (4.5-11.0) K/uL RBC (3.30-5.50) M/uL Hgb (12.0-15.0) g/dL Hct (36.0-48.0) % MCV (80-98) fL MCH (27-31) pg MCHC (32-36) % Plt Count (150-400) K/uL Neut % (Auto) (36-66) % Lymph % (Auto) (24-44) % [place] % (Auto) (2-6) % Eos % (Auto) (2-4) % Baso % (Auto) (0-1) % ABG Hemoglobin 11.5 L (12.0-16.0) g/dL ABG Oxyhemoglobin 79.0 % ABG Carboxyhemoglobin 4.1 H (0.0-1.6) % ABG Methemoglobin 0.9 % VBG pH 7.428 (7.350-7.450) VBG pCO2 44.8 mm/Hg VBG pO2 47.5 mm/Hg VBG HCO3 29.1 mmol/L VBG Total CO2 26.5 mmol/L VBG O2 Saturation 83.2 VBG O2 Content 12.7 %vol VBG Base Excess 4.6 mm/L O2 Delivery Device Room air Troponin I (0.000-0.056) ng/mL Urine Color Urine Appearance Urine pH (4.5-8.0) Ur Specific [place] (1.008-1.030) Urine Protein (NEGATIVE) mg/dL Urine Glucose (UA) (NEGATIVE) mg/dL Urine Ketones (NEGATIVE) mg/dL Urine Occult Blood (NEGATIVE) Urine Nitrite (NEGATIVE) Urine Bilirubin (NEGATIVE) Urine Urobilinogen (NORMAL) mg/dL Ur Leukocyte Esterase (NEGATIVE) Urine RBC (0-5) Urine WBC (0-5) Ur Epithelial Cells Amorphous Sediment Urine Bacteria Urine Mucus Salicylates (2.0-20.0) mg/dL Urine Opiates Screen (NEGATIVE) Ur Oxycodone Screen (NEGATIVE) Urine Methadone Screen (NEGATIVE) Ur Propoxyphene Screen (NEGATIVE) Acetaminophen (10.0-30.0) ug/mL Ur Barbiturates Screen (NEGATIVE) Ur Tricyclics Screen (NEGATIVE) Ur Phencyclidine Scrn (NEGATIVE) Ur Amphetamine Screen (NEGATIVE) U Methamphetamines Scrn (NEGATIVE) Urine MDMA Screen (NEGATIVE) U Benzodiazepines Scrn (NEGATIVE) U Cocaine Metab Screen (NEGATIVE) U Marijuana (THC) Screen (NEGATIVE) Ethyl Alcohol mg/dL Meds: Medications Generic Name Dose Route Start Last Admin Trade Name Freq PRN Reason Stop Dose Admin Sodium Chloride 1,000 mls @ 999 mls/hr 12/09/16 09:30 12/09/16 09:46 Normal Saline IV 500 mls/hr ASDIRECTED KATHRINE Administration Discontinued Medications Generic Name Dose Route Start Last Admin Trade Name Freq PRN Reason Stop Dose Admin Insulin Human Regular 10 unit 12/09/16 12:52 Novolin R IVPUSH 12/09/16 12:53 ONETIME ONE Protocol Lorazepam 2 mg 12/09/16 09:35 12/09/16 09:46 Ativan IVPUSH 12/09/16 09:36 2 mg ONETIME ONE Administration Lorazepam 2 mg 12/09/16 10:45 12/09/16 11:35 Ativan IVPUSH 12/09/16 10:46 2 mg ONETIME ONE Administration Nitrofurantoin Macrocrystals 100 mg 12/09/16 11:12 12/09/16 11:34 Macrobid PO 12/09/16 11:13 100 mg ONETIME ONE Administration Ondansetron HCl 4 mg 12/09/16 09:27 12/09/16 09:46 Zofran IVPUSH 12/09/16 09:28 4 mg ONETIME ONE Administration Departure - Departure Time of Disposition: 12:57 Disposition: Home, Self-Care 01 Condition: Fair Clinical Impression: Alcohol dependence Qualifiers: Substance use status: uncomplicated Qualified Code(s): F10.20 - Alcohol dependence, uncomplicated Alcohol withdrawal Qualifiers: Complication of substance-induced condition: uncomplicated Qualified Code(s): F10.230 - Alcohol dependence with withdrawal, uncomplicated - Discharge Information Forms: ED Department Discharge Additional Instructions: Please go to [facility] and we wish you luck in taking care of this problem in your life. - My Orders Last 24 Hours: My Active Orders 12/09/16 09:25 Chest 1V Frontal [CR] Stat EKG 12 Lead [EK] Stat 12/09/16 09:26 EKG Documentation Completion [RC] ASDIRECTED 12/09/16 09:30 Sodium Chloride 0.9% [Normal Saline] 1,000 ml IV ASDIRECTED 12/09/16 11:44 CULTURE URINE [RM] Stat - Assessment/Plan Last 24 Hours: My Active Orders 12/09/16 09:25 Chest 1V Frontal [CR] Stat EKG 12 Lead [EK] Stat 12/09/16 09:26 EKG Documentation Completion [RC] ASDIRECTED 12/09/16 09:30 Sodium Chloride 0.9% [Normal Saline] 1,000 ml IV ASDIRECTED 12/09/16 11:44 CULTURE URINE [RM] Stat
[2016-12-09 13:32] VITALS: BP 148/78
--- NOTE | 2016-12-10 10:17 | CR ---
Chest 1V Frontal INDICATION: SOB , vomiting FINDINGS: Elevation right hemidiaphragm. AP portable chest x-ray otherwise negative.
== END 2016-12-09 13:10 | disposition home or self-care (01) ==
LOC: JP.ED 09:03
DX: F10.230 Alcohol dependence with withdrawal, uncomplicated (principal); I25.10 Atherosclerotic heart disease of native coronary artery without angina pectoris; E78.00 Pure hypercholesterolemia, unspecified; I10 Essential (primary) hypertension; I25.2 Old myocardial infarction; E11.9 Type 2 diabetes mellitus without complications; Z79.4 Long term (current) use of insulin; Z79.899 Other long term (current) drug therapy; Z90.49 Acquired absence of other specified parts of digestive tract; Z98.890 Other specified postprocedural states; Z79.82 Long term (current) use of aspirin; Z88.0 Allergy status to penicillin; Z88.8 Allergy status to other drugs, medicaments and biological substances
CPT/HCPCS: 36415; 71010; 80305; 81001; 82803; 84484; 85025; 87086; 87088; 87186; 93005; 96361; 96374; 96375; 96376; 99285; A9270; G0480; J2060; J2405; J7040

== ENCOUNTER 2020-01-19 00:39 | Emergency (ER) | payer MEDICAID ==
--- NOTE | 2020-01-19 01:17 | EDM.PDOC ---
<OfficerDustin - Last Filed: 01/19/20 01:15> ED HPI GENERAL MEDICAL PROBLEM - General Chief Complaint: Drug or Alcohol Abuse Stated Complaint: MEDICAL VIA [facility] Time Seen by Provider: 01/19/20 01:03 Source of Information: Reports: Patient, EMS, RN Notes Reviewed History Limitations: Reports: Intoxication - History of Present Illness INITIAL COMMENTS - FREE TEXT/NARRATIVE: 55-year-old female presents emergency department today via EMS services for intoxication, she is severely intoxicated was given Narcan in EMS with no response. GCS 13 at this time but is somnolent - Related Data Allergies Allergy/AdvReac Type Severity Reaction Status Date / Time kiwi Allergy Severe Anaphylactic Verified 01/19/20 01:17 Shock shrimp Allergy Severe Anaphylactic Verified 01/19/20 01:17 Shock niacin Allergy Hives Verified 11/03/16 00:01 Penicillins Allergy Hives Verified 11/03/16 00:01 lisinopril AdvReac Cough Verified 11/03/16 00:01 Home Meds: Home Meds Aspirin [Aspirin EC] 81 mg PO DAILY 09/11/14 [History] Losartan [Cozaar] 100 mg PO DAILY 09/11/14 [History] Metoprolol Succinate [Toprol XL] 25 mg PO DAILY 09/11/14 [History] Multivitamins/Iron/Folic Acid [Cerovite Advanced Formula] 1 tab PO DAILY 09/11/14 [History] Insulin Aspart [Novolog Flexpen] 12 units SUBCUT TID 04/07/15 [History] Omeprazole 20 mg PO BID 07/08/16 [History] *Fidaxomicin 200 mg PO BID 01/19/20 [History] Cyanocobalamin (Vitamin B12) [Vitamin B12] 1 tab PO DAILY 01/19/20 [History] FLUoxetine HCl [Prozac] 60 mg PO DAILY 01/19/20 [History] Ferrous Sulfate 1 tab PO BID 01/19/20 [History] Gabapentin [Neurontin] 800 mg PO TID 01/19/20 [History] Mirtazapine 157.5 mg PO BEDTIME 01/19/20 [History] Ondansetron [Zofran ODT] 4 mg PO TID PRN 01/19/20 [History] Vit 28/Iron Fum/Folic [Theranatal Core Nutrition] 1 tab PO DAILY 01/19/20 [History] QUEtiapine [SEROquel] 50 mg PO BEDTIME 01/19/20 [History] hydrOXYzine pamoate [Hydroxyzine Pamoate] 50 mg PO DAILY PRN 01/19/20 [History] Past Medical History HEENT History: Reports: Impaired Vision Cardiovascular History: Reports: Arrhythmia, CAD, High Cholesterol, Hypertension, [place], Syncope Gastrointestinal History: Reports: Cholelithiasis, Gastritis, GI Bleed, Hemorrhoids, Pancreatitis, Other (See Below) Other Gastrointestinal History: malnutrition Genitourinary History: Reports: Acute Renal Failure, Chronic Renal Insuffiency, Urinary Incontinence, Other (See Below) Other Genitourinary History: decreased kidney function SUBACUTE NURSE History: Reports: Dysfunctional Uterine Bleeding, , Other (See Below) Other SUBACUTE NURSE History: Past heavy vaginal bleeding Musculoskeletal History: Reports: Back Pain, Chronic, Fracture Other Musculoskeletal History: spinal infection. orbital fracture Neurological History: Reports: Concussion, Neuropathy, Diabetic, Other (See Below) Other Neuro History: chronic fatigue syndrom Psychiatric History: Reports: Addiction, Anxiety, Depression, PTSD Endocrine/Metabolic History: Reports: Diabetes, Type II Hematologic History: Reports: Blood Transfusion(s) Other Hematologic History: unable to obtain Immunologic History: Reports: Other (See Below) Other Immunologic History: unable to obtain Oncologic (Cancer) History: Reports: Other (See Below) Other Oncologic History: unable to obtain Dermatologic History: Reports: Psoriasis - Infectious Disease History Infectious Disease History: Reports: MRSA Other Infectious Disease History: unable to obtain - Past Surgical History HEENT Surgical History: Reports: None Cardiovascular Surgical History: Reports: None GI Surgical History: Reports: Appendectomy, Cholecystectomy Social & Family History - Family History Family Medical History: Unobtainable - Caffeine Use Caffeine Use: Reports: Coffee, Energy Drinks, Soda, Tea ED ROS GENERAL - Review of Systems Review Of Systems: Unable To Obtain Reason Not Obtained: Intoxicated - Physical Exam Exam: See Below Exam Limited By: Intoxication General Appearance: No Apparent Distress Eye Exam: Bilateral Eye: PERRL Respiratory/Chest: No Respiratory Distress, Lungs Clear, Normal Breath Sounds, No Accessory Muscle Use, Chest Non-Tender Cardiovascular: Regular Rate, Rhythm, No Murmur GI/Abdominal: Soft, Non-Tender Neuro Exam (Abbreviated): Other (GCS of 13) Departure - Departure Disposition: Home, Self-Care 01 Clinical Impression: Hypokalemia, Marijuana smoker, Elevated alkaline phosphatase level Alcohol intoxication Qualifiers: Complication of substance-induced condition: with unspecified complication Qualified Code(s): F10.929 - Alcohol use, unspecified with intoxication, unspecified Alcoholic hepatitis Qualifiers: Ascites presence: without ascites Qualified Code(s): K70.10 - Alcoholic hepatitis without ascites - Discharge Information Instructions: Alcoholic Liver Disease, [id number], Potassium Content of Foods Referrals: PCP,None [Primary Care Provider] - Forms: ED Department Discharge Additional Instructions: You will need to see your doctor in the next week for a repeat alkaline phosphatase level, preferably when you have not been drinking alcohol to make sure this comes down. An elevated level can be a marker or a liver tumor or bone cancer. Eat more foods rich in potassium to replace this important mineral which you were low in today. Take all your regular medications as prescribed. <Miki De Los Santos - Last Filed: 01/19/20 12:01> Course - Vital Signs Text/Narrative:: Elissa Archibald was discussed with patient, initially she seemed open to this but later decided against it. Last Recorded V/S: Last Vital Signs Temp 36.4 C 01/19/20 01:15 Pulse 107 H 01/19/20 08:29 Resp 20 01/19/20 08:29 BP 108/54 L 01/19/20 08:29 Pulse Ox 98 01/19/20 08:29 - Orders/Labs/Meds Orders: Active Orders 24 hr Category Date Time Status Hyatt Catheter Insertion [Insert Urinary Catheter] [OM. Care 01/19/20 01:30 Ordered PC] Q24H Urinary Catheter Assessment [RC] ASDIRECTED Care 01/19/20 01:20 Active Labs: Laboratory Tests 01/19/20 01/19/20 01/19/20 Range/Units 01:24 01:24 01:27 WBC 12.8 H (4.5-11.0) K/uL RBC 4.02 (3.30-5.50) M/uL Hgb 11.6 L (12.0-15.0) g/dL Hct 37.4 (36.0-48.0) % MCV 93 (80-98) fL MCH 29 (27-31) pg MCHC 31 L (32-36) % Plt Count 247 (150-400) K/uL Neut % (Auto) 60 (36-66) % Lymph % (Auto) 34 (24-44) % Bent % (Auto) 5 (2-6) % Eos % (Auto) 0 L (2-4) % Baso % (Auto) 1 (0-1) % Sodium (140-148) mmol/L Potassium (3.6-5.2) mmol/L Chloride (100-108) mmol/L Carbon Dioxide (21-32) mmol/L Anion Gap (5.0-14.0) mmol/L BUN (7-18) mg/dL Creatinine (0.6-1.0) mg/dL Est Cr Clr Drug Dosing mL/min Estimated GFR (MDRD) (>60) Glucose (74-106) mg/dL POC Glucose (74-106) MG/DL Calcium (8.5-10.1) mg/dL Magnesium (1.8-2.4) mg/dL Total Bilirubin (0.2-1.0) mg/dL AST (15-37) U/L ALT (12-78) U/L Alkaline Phosphatase (46-116) U/L Total Protein (6.4-8.2) g/dL Albumin (3.4-5.0) g/dL Globulin (2.3-3.5) g/dL Albumin/Globulin Ratio (1.2-2.2) Urine Color Yellow (YELLOW) Urine Appearance Clear (CLEAR) Urine pH 5.5 (5.0-8.0) Ur Specific [place] 1.010 (1.008-1.030) Urine Protein Negative (NEGATIVE) mg/dL Urine Glucose (UA) Negative (NEGATIVE) mg/dL Urine Ketones Negative (NEGATIVE) mg/dL Urine Occult Blood Trace-intact H (NEGATIVE) Urine Nitrite Negative (NEGATIVE) Urine Bilirubin Negative (NEGATIVE) Urine Urobilinogen 0.2 (0.2-1.0) EU/dL Ur Leukocyte Esterase Moderate H (NEGATIVE) Urine RBC 0-5 (0-5) Urine WBC 0-5 (0-5) Ur Epithelial Cells Rare Amorphous Sediment Many Urine Bacteria Few Urine Mucus Not seen Salicylates (2.0-20.0) mg/dL Urine Opiates Screen Presumptive positive H (NEGATIVE) Ur Oxycodone Screen Negative (NEGATIVE) Urine Methadone Screen Negative (NEGATIVE) Ur Propoxyphene Screen Negative (NEGATIVE) Acetaminophen (10.0-30.0) ug/mL Ur Barbiturates Screen Negative (NEGATIVE) Ur Tricyclics Screen Negative (NEGATIVE) Ur Phencyclidine Scrn Negative (NEGATIVE) Ur Amphetamine Screen Negative (NEGATIVE) U Methamphetamines Scrn Negative (NEGATIVE) Urine MDMA Screen Negative (NEGATIVE) U Benzodiazepines Scrn Negative (NEGATIVE) U Cocaine Metab Screen Negative (NEGATIVE) U Marijuana (THC) Screen Presumptive positive H (NEGATIVE) Ethyl Alcohol mg/dL 01/19/20 01/19/20 01/19/20 Range/Units 01:27 01:27 01:27 WBC (4.5-11.0) K/uL RBC (3.30-5.50) M/uL Hgb (12.0-15.0) g/dL Hct (36.0-48.0) % MCV (80-98) fL MCH (27-31) pg MCHC (32-36) % Plt Count (150-400) K/uL Neut % (Auto) (36-66) % Lymph % (Auto) (24-44) % Bent % (Auto) (2-6) % Eos % (Auto) (2-4) % Baso % (Auto) (0-1) % Sodium 139 L (140-148) mmol/L Potassium 3.1 L (3.6-5.2) mmol/L Chloride 101 (100-108) mmol/L Carbon Dioxide 23 (21-32) mmol/L Anion Gap 18.1 H (5.0-14.0) mmol/L BUN 7 (7-18) mg/dL Creatinine 1.3 H (0.6-1.0) mg/dL Est Cr Clr Drug Dosing 46.31 mL/min Estimated GFR (MDRD) 43 L (>60) Glucose 228 H (74-106) mg/dL POC Glucose (74-106) MG/DL Calcium 8.0 L (8.5-10.1) mg/dL Magnesium (1.8-2.4) mg/dL Total Bilirubin 0.8 D (0.2-1.0) mg/dL AST 62 H D (15-37) U/L ALT 27 (12-78) U/L Alkaline Phosphatase 579 H D (46-116) U/L Total Protein 8.0 (6.4-8.2) g/dL Albumin 2.5 L (3.4-5.0) g/dL Globulin 5.5 H (2.3-3.5) g/dL Albumin/Globulin Ratio 0.5 L (1.2-2.2) Urine Color (YELLOW) Urine Appearance (CLEAR) Urine pH (5.0-8.0) Ur Specific [place] (1.008-1.030) Urine Protein (NEGATIVE) mg/dL Urine Glucose (UA) (NEGATIVE) mg/dL Urine Ketones (NEGATIVE) mg/dL Urine Occult Blood (NEGATIVE) Urine Nitrite (NEGATIVE) Urine Bilirubin (NEGATIVE) Urine Urobilinogen (0.2-1.0) EU/dL Ur Leukocyte Esterase (NEGATIVE) Urine RBC (0-5) Urine WBC (0-5) Ur Epithelial Cells Amorphous Sediment Urine Bacteria Urine Mucus Salicylates (2.0-20.0) mg/dL Urine Opiates Screen (NEGATIVE) Ur Oxycodone Screen (NEGATIVE) Urine Methadone Screen (NEGATIVE) Ur Propoxyphene Screen (NEGATIVE) Acetaminophen 0.0 L (10.0-30.0) ug/mL Ur Barbiturates Screen (NEGATIVE) Ur Tricyclics Screen (NEGATIVE) Ur Phencyclidine Scrn (NEGATIVE) Ur Amphetamine Screen (NEGATIVE) U Methamphetamines Scrn (NEGATIVE) Urine MDMA Screen (NEGATIVE) U Benzodiazepines Scrn (NEGATIVE) U Cocaine Metab Screen (NEGATIVE) U Marijuana (THC) Screen (NEGATIVE) Ethyl Alcohol 451 mg/dL 01/19/20 01/19/20 01/19/20 Range/Units 01:27 07:53 11:33 WBC (4.5-11.0) K/uL RBC (3.30-5.50) M/uL Hgb (12.0-15.0) g/dL Hct (36.0-48.0) % MCV (80-98) fL MCH (27-31) pg MCHC (32-36) % Plt Count (150-400) K/uL Neut % (Auto) (36-66) % Lymph % (Auto) (24-44) % Bent % (Auto) (2-6) % Eos % (Auto) (2-4) % Baso % (Auto) (0-1) % Sodium (140-148) mmol/L Potassium (3.6-5.2) mmol/L Chloride (100-108) mmol/L Carbon Dioxide (21-32) mmol/L Anion Gap (5.0-14.0) mmol/L BUN (7-18) mg/dL Creatinine (0.6-1.0) mg/dL Est Cr Clr Drug Dosing mL/min Estimated GFR (MDRD) (>60) Glucose (74-106) mg/dL POC Glucose 172 H (74-106) MG/DL Calcium (8.5-10.1) mg/dL Magnesium 2.1 (1.8-2.4) mg/dL Total Bilirubin (0.2-1.0) mg/dL AST (15-37) U/L ALT (12-78) U/L Alkaline Phosphatase (46-116) U/L Total Protein (6.4-8.2) g/dL Albumin (3.4-5.0) g/dL Globulin (2.3-3.5) g/dL Albumin/Globulin Ratio (1.2-2.2) Urine Color (YELLOW) Urine Appearance (CLEAR) Urine pH (5.0-8.0) Ur Specific [place] (1.008-1.030) Urine Protein (NEGATIVE) mg/dL Urine Glucose (UA) (NEGATIVE) mg/dL Urine Ketones (NEGATIVE) mg/dL Urine Occult Blood (NEGATIVE) Urine Nitrite (NEGATIVE) Urine Bilirubin (NEGATIVE) Urine Urobilinogen (0.2-1.0) EU/dL Ur Leukocyte Esterase (NEGATIVE) Urine RBC (0-5) Urine WBC (0-5) Ur Epithelial Cells Amorphous Sediment Urine Bacteria Urine Mucus Salicylates 0.0 L (2.0-20.0) mg/dL Urine Opiates Screen (NEGATIVE) Ur Oxycodone Screen (NEGATIVE) Urine Methadone Screen (NEGATIVE) Ur Propoxyphene Screen (NEGATIVE) Acetaminophen (10.0-30.0) ug/mL Ur Barbiturates Screen (NEGATIVE) Ur Tricyclics Screen (NEGATIVE) Ur Phencyclidine Scrn (NEGATIVE) Ur Amphetamine Screen (NEGATIVE) U Methamphetamines Scrn (NEGATIVE) Urine MDMA Screen (NEGATIVE) U Benzodiazepines Scrn (NEGATIVE) U Cocaine Metab Screen (NEGATIVE) U Marijuana (THC) Screen (NEGATIVE) Ethyl Alcohol mg/dL Meds: Medications Discontinued Medications Generic Name Dose Route Start Last Admin Trade Name Freq PRN Reason Stop Dose Admin Lactated Ringer's 1,000 mls @ 999 mls/hr 01/19/20 01:11 01/19/20 01:23 Ringers, Lactated IV 01/19/20 02:11 999 mls/hr BOLUS ONE Administration Lactated Ringer's 1,000 mls @ 999 mls/hr 01/19/20 02:25 01/19/20 02:27 Ringers, Lactated IV 01/19/20 03:25 999 mls/hr BOLUS ONE Administration Potassium Chloride 20 meq/ 100 mls @ 50 mls/hr 01/19/20 02:38 01/19/20 03:02 Premix IV 01/19/20 04:37 50 mls/hr ONETIME ONE Administration Lidocaine HCl 5 ml 01/19/20 02:45 01/19/20 03:02 Xylocaine-Mpf 1% INJECT 01/19/20 02:46 2 ml ONETIME ONE Administration Potassium Chloride 40 meq 01/19/20 07:52 01/19/20 08:54 Potassium Chloride PO 01/19/20 07:53 40 meq ONETIME ONE Administration Thiamine HCl 100 mg 01/19/20 07:53 01/19/20 08:54 Vitamin B-1 PO 01/19/20 07:54 100 mg ONETIME ONE Administration Departure - Departure Time of Disposition: 12:30 Condition: Fair - Discharge Information *PRESCRIPTION DRUG MONITORING PROGRAM REVIEWED*: No *COPY OF PRESCRIPTION DRUG MONITORING REPORT IN PATIENT ERICA: No Sepsis Event Note (ED) - Focused Exam Vital Signs: Vital Signs Temp Pulse Resp BP Pulse Ox 01/19/20 08:29 107 H 20 108/54 L 98 01/19/20 07:30 105 H 20 101/51 L 98 01/19/20 06:35 104 H 18 92/51 L 01/19/20 05:30 107 H 18 116/69 95 01/19/20 03:51 105 H 18 100/62 92 L 01/19/20 03:16 104 H 18 107/67 95 01/19/20 02:00 103 H 17 95/56 L 99 01/19/20 01:42 104 H 19 124/71 98 01/19/20 01:15 36.4 C 107 H 19 110/69 95 01/19/20 00:50 36.4 C 107 H 19 110/69 95
[2020-01-19] MEDS: Lactated Ringers 1,000 ML IV ONE ×2 (01:23→02:27)
[2020-01-19] MEDS: Potassium Chloride 20 MEQ in Premix Bag 1 BAG IV ONE (03:02)
[2020-01-19] MEDS: Thiamine 100 MG Tab PO ONE (08:54)
[2020-01-19] MEDS: Potassium Chloride 10 MEQ Cap.ER PO ONE (08:54)
[2020-01-19 08:55] VITALS: BP 108/54; PULSE 107
== END 2020-01-19 12:12 | disposition home or self-care (01) ==
LOC: JP.ED 00:39
DX: F10.129 Alcohol abuse with intoxication, unspecified (principal); Y90.8 Blood alcohol level of 240 mg/100 ml or more; K70.10 Alcoholic hepatitis without ascites; E87.6 Hypokalemia; I25.10 Atherosclerotic heart disease of native coronary artery without angina pectoris; F12.10 Cannabis abuse, uncomplicated; I12.9 Hypertensive chronic kidney disease with stage 1 through stage 4 chronic kidney disease, or unspecified chronic kidney disease; I25.2 Old myocardial infarction; N18.9 Chronic kidney disease, unspecified; E11.22 Type 2 diabetes mellitus with diabetic chronic kidney disease; E11.40 Type 2 diabetes mellitus with diabetic neuropathy, unspecified; F41.9 Anxiety disorder, unspecified; F32.9 Major depressive disorder, single episode, unspecified; R74.8 Abnormal levels of other serum enzymes; Z91.018 Allergy to other foods; Z88.8 Allergy status to other drugs, medicaments and biological substances; Z88.0 Allergy status to penicillin; Z79.82 Long term (current) use of aspirin; Z79.4 Long term (current) use of insulin; Z79.899 Other long term (current) drug therapy
CPT/HCPCS: 36415; 80053; 80305; 80307; 81001; 82962; 83735; 85025; 96361; 96365; 96366; 99284; A9270; J2001; J3480; J7120

== ENCOUNTER 2020-01-20 21:45 | Emergency (ER) | payer MEDICAID ==
--- NOTE | 2020-01-20 22:27 | EDM.PDOCBH ---
ED HPI GENERAL MEDICAL PROBLEM - General Chief Complaint: Drug or Alcohol Abuse Stated Complaint: MEDICAL VIA [facility] Time Seen by Provider: 01/20/20 22:10 Source of Information: Reports: Patient, EMS History Limitations: Reports: Intoxication - History of Present Illness INITIAL COMMENTS - FREE TEXT/NARRATIVE: 55-year-old who was just in within the last 48 hours and slept off alcohol intoxication over 8 hours, is back by ambulance because of intoxication. I am not sure who called the ambulance or why she returned. She is arousable and can be asked questions, she declines any pain. No vomiting or diarrhea. She acts very intoxicated. Onset: Unknown/Unsure Associated Symptoms: Reports: Confusion, Malaise - Related Data Allergies Allergy/AdvReac Type Severity Reaction Status Date / Time kiwi Allergy Severe Anaphylactic Verified 01/20/20 21:49 Shock shrimp Allergy Severe Anaphylactic Verified 01/20/20 21:49 Shock niacin Allergy Hives Verified 01/20/20 21:49 Penicillins Allergy Hives Verified 01/20/20 21:49 lisinopril AdvReac Cough Verified 01/20/20 21:49 Home Meds: Home Meds Aspirin [Aspirin EC] 81 mg PO DAILY 09/11/14 [History] Losartan [Cozaar] 100 mg PO DAILY 09/11/14 [History] Metoprolol Succinate [Toprol XL] 25 mg PO DAILY 09/11/14 [History] Multivitamins/Iron/Folic Acid [Cerovite Advanced Formula] 1 tab PO DAILY 09/11/14 [History] Insulin Aspart [Novolog Flexpen] 12 units SUBCUT TID 04/07/15 [History] Omeprazole 20 mg PO BID 07/08/16 [History] *Fidaxomicin 200 mg PO BID 01/19/20 [History] Cyanocobalamin (Vitamin B12) [Vitamin B12] 1 tab PO DAILY 01/19/20 [History] FLUoxetine HCl [Prozac] 60 mg PO DAILY 01/19/20 [History] Ferrous Sulfate 1 tab PO BID 01/19/20 [History] Gabapentin [Neurontin] 800 mg PO TID 01/19/20 [History] Mirtazapine 157.5 mg PO BEDTIME 01/19/20 [History] Ondansetron [Zofran ODT] 4 mg PO TID PRN 01/19/20 [History] Vit 28/Iron Fum/Folic [Theranatal Core Nutrition] 1 tab PO DAILY 01/19/20 [History] QUEtiapine [SEROquel] 50 mg PO BEDTIME 01/19/20 [History] hydrOXYzine pamoate [Hydroxyzine Pamoate] 50 mg PO DAILY PRN 01/19/20 [History] Past Medical History HEENT History: Reports: Impaired Vision Cardiovascular History: Reports: Arrhythmia, CAD, High Cholesterol, Hypertension, [place], Syncope Gastrointestinal History: Reports: Cholelithiasis, Gastritis, GI Bleed, Hemorrhoids, Pancreatitis, Other (See Below) Other Gastrointestinal History: malnutrition Genitourinary History: Reports: Acute Renal Failure, Chronic Renal Insuffiency, Urinary Incontinence, Other (See Below) Other Genitourinary History: decreased kidney function HANDBAG FINISHER History: Reports: Dysfunctional Uterine Bleeding, , Other (See Below) Other HANDBAG FINISHER History: Past heavy vaginal bleeding Musculoskeletal History: Reports: Back Pain, Chronic, Fracture Other Musculoskeletal History: spinal infection. orbital fracture Neurological History: Reports: Concussion, Neuropathy, Diabetic, Other (See Below) Other Neuro History: chronic fatigue syndrom Psychiatric History: Reports: Addiction, Anxiety, Depression, PTSD Endocrine/Metabolic History: Reports: Diabetes, Type II Hematologic History: Reports: Blood Transfusion(s) Other Hematologic History: unable to obtain Immunologic History: Reports: Other (See Below) Other Immunologic History: unable to obtain Oncologic (Cancer) History: Reports: Other (See Below) Other Oncologic History: unable to obtain Dermatologic History: Reports: Psoriasis - Infectious Disease History Infectious Disease History: Reports: MRSA Other Infectious Disease History: unable to obtain - Past Surgical History HEENT Surgical History: Reports: None Cardiovascular Surgical History: Reports: None GI Surgical History: Reports: Appendectomy, Cholecystectomy Social & Family History - Family History Family Medical History: Unobtainable - Caffeine Use Caffeine Use: Reports: Coffee, Energy Drinks, Soda, Tea ED ROS GENERAL - Review of Systems Review Of Systems: See Below Constitutional: Reports: Malaise. Denies: Fever, Chills Respiratory: Denies: Shortness of Breath Cardiovascular: Denies: Chest Pain GI/Abdominal: Denies: Abdominal Pain, Nausea, Vomiting Skin: Reports: No Symptoms Neurological: Reports: Difficulty Walking, Weakness ED EXAM, BEHAVIORAL HEALTH - Physical Exam Exam: See Below Exam Limited By: Intoxication General Appearance: Alert, No Apparent Distress Respiratory/Chest: No Respiratory Distress, Lungs Clear Cardiovascular: Regular Rate, Rhythm, Tachycardia GI/Abdominal: Non-Tender Neurological: Disoriented to Time, Opens Eyes to Commands, Slow Response to Commands Psychiatric: Flat Affect Skin Exam: Warm, Dry COURSE, BEHAVIORAL HEALTH COMP - Course Vital Signs: Last Vital Signs Temp 96.9 F 01/20/20 21:53 Pulse 119 H 01/21/20 03:30 Resp 18 01/21/20 03:30 BP 118/76 01/21/20 03:30 Pulse Ox 92 L 01/21/20 03:30 Orders, Labs, Meds: Laboratory Tests 01/20/20 01/20/20 Range/Units 22:02 22:13 POC Glucose 180 H (74-106) MG/DL Ethyl Alcohol 439 mg/dL Medications Discontinued Medications Generic Name Dose Route Start Last Admin Trade Name Freq PRN Reason Stop Dose Admin Ondansetron HCl 4 mg 01/21/20 08:47 01/21/20 08:51 Zofran Odt PO 01/21/20 08:48 4 mg ONETIME ONE Administration Re-Assessment/Re-Exam: Spot glucose is 180, EtOH is 0.439. Patient will be monitored until she can find a ride home. Patient slept all night, remained stable. She can find a ride home when she was up. Departure - Departure Time of Disposition: 10:21 Disposition: Home, Self-Care 01 Clinical Impression: Alcohol intoxication Qualifiers: Complication of substance-induced condition: uncomplicated Qualified Code(s): F10.920 - Alcohol use, unspecified with intoxication, uncomplicated - Discharge Information Instructions: Alcohol Intoxication, [id number] Referrals: PCP,None [Primary Care Provider] - Forms: ED Department Discharge Care Plan Goals: Avoid abusing alcohol in the future. Consider treatment if needed. Sepsis Event Note (ED) - Evaluation Sepsis Screening Result: No Definite Risk
[2020-01-21 04:25] VITALS: BP 118/76; PULSE 119
[2020-01-21] MEDS ORDERED: Ondansetron 4 MG Tab.DIS PO ONE (08:47)
== END 2020-01-21 10:21 | disposition home or self-care (01) ==
LOC: JP.ED 21:45
DX: F10.120 Alcohol abuse with intoxication, uncomplicated (principal); R00.0 Tachycardia, unspecified; I25.2 Old myocardial infarction; I25.10 Atherosclerotic heart disease of native coronary artery without angina pectoris; E11.40 Type 2 diabetes mellitus with diabetic neuropathy, unspecified; F41.9 Anxiety disorder, unspecified; F32.9 Major depressive disorder, single episode, unspecified; I12.9 Hypertensive chronic kidney disease with stage 1 through stage 4 chronic kidney disease, or unspecified chronic kidney disease; E11.22 Type 2 diabetes mellitus with diabetic chronic kidney disease; N18.9 Chronic kidney disease, unspecified; Z88.0 Allergy status to penicillin; Z88.8 Allergy status to other drugs, medicaments and biological substances; Z88.3 Allergy status to other anti-infective agents; Z91.018 Allergy to other foods; Z91.013 Allergy to seafood; Z79.82 Long term (current) use of aspirin; Z79.899 Other long term (current) drug therapy; Z90.49 Acquired absence of other specified parts of digestive tract; Y90.8 Blood alcohol level of 240 mg/100 ml or more
CPT/HCPCS: 36415; 80307; 82962; 99284; A9270; 99283

== ENCOUNTER 2020-07-08 09:08 | Inpatient (IN) | payer MEDICAID ==
--- NOTE | 2020-07-08 09:18 | EDM.PDOC ---
ED HPI GENERAL MEDICAL PROBLEM - General Stated Complaint: [facility] Time Seen by Provider: 07/08/20 09:08 Source of Information: Reports: EMS History Limitations: Reports: Altered Mental Status (Patient is unresponsive) - History of Present Illness INITIAL COMMENTS - FREE TEXT/NARRATIVE: 55-year-old female, chronic alcoholic and noncompliant diabetic, was drinking yesterday and this morning when they went in to wake her up she is unresponsive. No outward evidence of trauma, she is breathing on her own and is not febrile. An IO was placed in the left proximal humerus, she was bolused 500 cc of normal saline in route but no other treatment was given. There is a very strong odor of marijuana. [place] Coma Scale is 3, she is completely unresponsive. EKG done by EMS shows no acute findings, glucose was over 600. Onset: Unknown/Unsure - Related Data Allergies Allergy/AdvReac Type Severity Reaction Status Date / Time kiwi Allergy Severe Anaphylactic Verified 07/08/20 09:42 Shock shrimp Allergy Severe Anaphylactic Verified 07/08/20 09:42 Shock niacin Allergy Hives Verified 07/08/20 09:42 Penicillins Allergy Hives Verified 07/08/20 09:42 lisinopril AdvReac Cough Verified 07/08/20 09:42 Home Meds: Home Meds Insulin Aspart [Novolog Flexpen] 20 units SUBCUT TID 04/07/15 [History] Insulin Glarg,Human.Rec.Analog [Lantus Solostar] 40 units SQ BEDTIME 07/09/20 [History] Metoprolol Succinate [Toprol XL] 25 mg PO DAILY #30 tab.er 07/10/20 [Rx] Past Medical History HEENT History: Reports: Impaired Vision Cardiovascular History: Reports: Arrhythmia, CAD, High Cholesterol, Hypertension, PA, Syncope Gastrointestinal History: Reports: Cholelithiasis, Gastritis, GI Bleed, Hemorrhoids, Pancreatitis, Other (See Below) Other Gastrointestinal History: malnutrition Genitourinary History: Reports: Acute Renal Failure, Chronic Renal Insuffiency, Urinary Incontinence, Other (See Below) Other Genitourinary History: decreased kidney function CERTIFIED SURGICAL ASSISTANT History: Reports: Dysfunctional Uterine Bleeding, , Other (See Below) Other CERTIFIED SURGICAL ASSISTANT History: Past heavy vaginal bleeding Musculoskeletal History: Reports: Back Pain, Chronic, Fracture Other Musculoskeletal History: spinal infection. orbital fracture Neurological History: Reports: Concussion, Neuropathy, Diabetic, Other (See Below) Other Neuro History: chronic fatigue syndrom Psychiatric History: Reports: Addiction, Anxiety, Depression, PTSD Endocrine/Metabolic History: Reports: Diabetes, Type II Hematologic History: Reports: Blood Transfusion(s) Other Hematologic History: unable to obtain Immunologic History: Reports: Other (See Below) Other Immunologic History: unable to obtain Oncologic (Cancer) History: Reports: Other (See Below) Other Oncologic History: unable to obtain Dermatologic History: Reports: Psoriasis - Infectious Disease History Infectious Disease History: Reports: MRSA Other Infectious Disease History: unable to obtain - Past Surgical History HEENT Surgical History: Reports: None Cardiovascular Surgical History: Reports: None GI Surgical History: Reports: Appendectomy, Cholecystectomy Social & Family History - Family History Family Medical History: Unobtainable - Caffeine Use Caffeine Use: Reports: Coffee, Energy Drinks, Soda, Tea ED ROS GENERAL - Review of Systems Review Of Systems: See Below (Unobtainable, there is no family here either) ED EXAM, GENERAL - Physical Exam Exam: See Below Free Text/Narrative:: She is mildly hypotensive, all her other vitals are normal. Exam Limited By: Altered Mental Status (Patient is unconscious, unresponsive) General Appearance: Other (Unresponsive and unconscious) Eye Exam: Bilateral Eye: PERRL (Pupils are equal, not pinpoint, she has a slight disconjugate gaze) Head: Atraumatic Respiratory/Chest: No Respiratory Distress, Lungs Clear Cardiovascular: Regular Rate, Rhythm. No: Bradycardia, Tachycardia GI/Abdominal: Soft, Non-Tender (No involuntary guarding) Extremities: No: Pedal Edema Neurological: Unresponsive Skin Exam: Warm, Dry, Other (There is some small superficial abrasions that are healing on her knees and some scattered light bruises) Course - Vital Signs Last Recorded V/S: Last Vital Signs Temp 98.9 F 07/10/20 08:00 Pulse 114 H 07/10/20 10:00 Resp 22 H 07/10/20 10:00 BP 147/85 H 07/10/20 10:00 Pulse Ox 94 L 07/10/20 10:00 - Orders/Labs/Meds Labs: Laboratory Tests 07/08/20 07/08/20 07/08/20 Range/Units 09:10 09:10 09:10 WBC 7.6 (4.5-11.0) K/uL RBC 3.99 (3.30-5.50) M/uL Hgb 12.3 (12.0-15.0) g/dL Hct 37.2 (36.0-48.0) % MCV 93 (80-98) fL MCH 31 (27-31) pg MCHC 33 (32-36) % Plt Count 151 (150-400) K/uL Neut % (Auto) 53 (36-66) % Lymph % (Auto) 35 (24-44) % Johnson % (Auto) 11 H (2-6) % Eos % (Auto) 1 L (2-4) % Baso % (Auto) 0 (0-1) % Puncture Site ABG pH (7.350-7.450) ABG pCO2 (35.0-42.0) mmHg ABG pO2 (75.0-100.0) mmHg ABG HCO3 (22.0-26.0) mmol/L ABG Total CO2 (21.0-25.0) mmol/L ABG O2 Saturation (95.0-98.0) % ABG O2 Content (15.0-23.0) %vol ABG Base Excess mm/L ABG Hemoglobin (12.0-16.0) g/dL ABG Oxyhemoglobin % ABG Carboxyhemoglobin (0.0-1.6) % ABG Methemoglobin % Shawn Test O2 Delivery Device Oxygen Flow Rate L Sodium 132 L (140-148) mmol/L Potassium 3.9 (3.6-5.2) mmol/L Chloride 91 L (100-108) mmol/L Carbon Dioxide 26 (21-32) mmol/L Anion Gap 18.9 H (5.0-14.0) mmol/L BUN 9 (7-18) mg/dL Creatinine 2.3 H D (0.6-1.0) mg/dL Est Cr Clr Drug Dosing TNP Estimated GFR (MDRD) 22 L (>60) Glucose 496 H* (74-106) mg/dL Calcium 8.6 (8.5-10.1) mg/dL Total Bilirubin 0.8 (0.2-1.0) mg/dL AST 58 H (15-37) U/L ALT 24 (12-78) U/L Alkaline Phosphatase 386 H (46-116) U/L Ammonia 43 H (11-32) mmol/L Total Protein 7.7 (6.4-8.2) g/dL Albumin 3.1 L (3.4-5.0) g/dL Globulin 4.6 H (2.3-3.5) g/dL Albumin/Globulin Ratio 0.7 L (1.2-2.2) Urine Opiates Screen (NEGATIVE) Ur Oxycodone Screen (NEGATIVE) Urine Methadone Screen (NEGATIVE) Ur Propoxyphene Screen (NEGATIVE) Ur Barbiturates Screen (NEGATIVE) Ur Tricyclics Screen (NEGATIVE) Ur Phencyclidine Scrn (NEGATIVE) Ur Amphetamine Screen (NEGATIVE) U Methamphetamines Scrn (NEGATIVE) Urine MDMA Screen (NEGATIVE) U Benzodiazepines Scrn (NEGATIVE) U Cocaine Metab Screen (NEGATIVE) U Marijuana (THC) Screen (NEGATIVE) Ethyl Alcohol mg/dL 07/08/20 07/08/20 07/08/20 Range/Units 09:10 09:11 09:22 WBC (4.5-11.0) K/uL RBC (3.30-5.50) M/uL Hgb (12.0-15.0) g/dL Hct (36.0-48.0) % MCV (80-98) fL MCH (27-31) pg MCHC (32-36) % Plt Count (150-400) K/uL Neut % (Auto) (36-66) % Lymph % (Auto) (24-44) % Johnson % (Auto) (2-6) % Eos % (Auto) (2-4) % Baso % (Auto) (0-1) % Puncture Site Lt radial ABG pH 7.267 L (7.350-7.450) ABG pCO2 55.5 H (35.0-42.0) mmHg ABG pO2 69.7 L (75.0-100.0) mmHg ABG HCO3 24.5 (22.0-26.0) mmol/L ABG Total CO2 23.1 (21.0-25.0) mmol/L ABG O2 Saturation 89.0 L (95.0-98.0) % ABG O2 Content 13.8 L (15.0-23.0) %vol ABG Base Excess -2.5 mm/L ABG Hemoglobin 11.5 L (12.0-16.0) g/dL ABG Oxyhemoglobin 84.9 % ABG Carboxyhemoglobin 3.7 H (0.0-1.6) % ABG Methemoglobin 0.9 % Shawn Test Pass O2 Delivery Device Room air Oxygen Flow Rate 4.0 L Sodium (140-148) mmol/L Potassium (3.6-5.2) mmol/L Chloride (100-108) mmol/L Carbon Dioxide (21-32) mmol/L Anion Gap (5.0-14.0) mmol/L BUN (7-18) mg/dL Creatinine (0.6-1.0) mg/dL Est Cr Clr Drug Dosing Estimated GFR (MDRD) (>60) Glucose (74-106) mg/dL Calcium (8.5-10.1) mg/dL Total Bilirubin (0.2-1.0) mg/dL AST (15-37) U/L ALT (12-78) U/L Alkaline Phosphatase (46-116) U/L Ammonia (11-32) mmol/L Total Protein (6.4-8.2) g/dL Albumin (3.4-5.0) g/dL Globulin (2.3-3.5) g/dL Albumin/Globulin Ratio (1.2-2.2) Urine Opiates Screen Negative (NEGATIVE) Ur Oxycodone Screen Negative (NEGATIVE) Urine Methadone Screen Negative (NEGATIVE) Ur Propoxyphene Screen Negative (NEGATIVE) Ur Barbiturates Screen Negative (NEGATIVE) Ur Tricyclics Screen Negative (NEGATIVE) Ur Phencyclidine Scrn Negative (NEGATIVE) Ur Amphetamine Screen Negative (NEGATIVE) U Methamphetamines Scrn Negative (NEGATIVE) Urine MDMA Screen Negative (NEGATIVE) U Benzodiazepines Scrn Presumptive positive H (NEGATIVE) U Cocaine Metab Screen Negative (NEGATIVE) U Marijuana (THC) Screen Presumptive positive H (NEGATIVE) Ethyl Alcohol 370 mg/dL Meds: Medications Discontinued Medications Generic Name Dose Route Start Last Admin Trade Name Freq PRN Reason Stop Dose Admin Acetaminophen 650 mg 07/08/20 13:07 Acetaminophen 325 Mg Tab PO Q4H PRN Pain (Mild 1-3)/fever Dextrose/Water 50 ml 07/08/20 09:45 50% Dextrose In Water 50 Ml Syringe IVPUSH ASDIRECTED PRN Hypoglycemia Dextrose/Water 50 ml 07/08/20 21:55 50% Dextrose In Water 50 Ml Syringe IVPUSH ASDIRECTED PRN Hypoglycemia Dimethicone/Zinc Oxide Confirm 07/08/20 20:00 07/08/20 20:08 Dimethicone 20%/Zinc Oxide 25% 56 Gm [place] Bottle Administered 07/08/20 20:01 Not Given Dose 56 gm TOP .STK-MED ONE Dimethicone/Zinc Oxide 0 gm 07/08/20 20:07 07/08/20 20:18 Dimethicone 20%/Zinc Oxide 25% 56 Gm [place] Bottle TOP 1 dose ASDIRECTED PRN Administration Rash Flumazenil 0.2 mg 07/08/20 10:08 07/08/20 10:16 Flumazenil 0.1 Mg/Ml 5 Ml Mdv IVPUSH 0.2 mg ONETIME PRN Administration Other Flumazenil 0.2 mg 07/08/20 10:44 07/08/20 10:47 Flumazenil 0.1 Mg/Ml 5 Ml Mdv IVPUSH 0.2 mg ONETIME PRN Administration Other Flumazenil 0.2 mg 07/08/20 10:48 07/08/20 17:56 Flumazenil 0.1 Mg/Ml 5 Ml Mdv IVPUSH 07/09/20 10:49 0.2 mg Q20M PRN Administration Other Folic Acid 1 mg 07/09/20 09:00 07/10/20 08:09 Folic Acid 1 Mg Tab PO 1 mg DAILY KATHRINE Administration Gabapentin 400 mg 07/08/20 14:00 07/10/20 05:05 Gabapentin 400 Mg Cap PO 07/12/20 06:01 400 mg Q8H KATHRINE Administration Gabapentin 200 mg 07/12/20 14:00 Gabapentin 100 Mg Cap PO 07/16/20 14:01 Q8H KATHRINE Glucagon 1 mg 07/08/20 09:45 Glucagon,Human Recombinant 1 Mg Vial IM ASDIRECTED PRN Hypoglycemia Glucagon 1 mg 07/08/20 21:55 Glucagon,Human Recombinant 1 Mg Vial IM ASDIRECTED PRN Hypoglycemia Sodium Chloride 1,000 mls @ 1,000 mls/hr 07/08/20 09:45 07/08/20 09:20 Normal Saline IV 1,000 mls/hr ASDIRECTED KATHRINE Administration Sodium Chloride 1,000 mls @ 125 mls/hr 07/08/20 13:07 07/09/20 07:32 Normal Saline IV 125 mls/hr ASDIRECTED KATHRINE Administration Multivitamins/Minerals 10 ml/ 1,015.2 mls @ 100 mls/hr 07/08/20 14:00 07/08/20 14:29 Thiamine HCl 100 mg/ Folic IV 07/09/20 00:09 100 mls/hr Acid 1 mg/ Magnesium Sulfate 2 ONETIME ONE Administration gm/ Sodium Chloride Insulin Glargine 40 units 07/08/20 22:00 07/09/20 21:30 Insulin Glargine,Human Rec. Analog 100 Units/Ml 3 Ml Pen SUBCUT 40 unit BEDTIME KATHRINE Administration Insulin Human Lispro 0 unit 07/08/20 22:00 07/10/20 11:24 Insulin Lispro 100 Unit/Ml 3 Ml Kwikpen SUBCUT 2 units QIDACANDBED KATHRINE Administration Protocol Insulin Human Lispro 14 unit 07/08/20 22:25 07/08/20 22:34 Insulin Lispro 100 Unit/Ml 3 Ml Kwikpen SUBCUT 07/08/20 22:26 14 unit ONETIME ONE Administration Insulin Human Lispro 20 unit 07/09/20 08:00 07/10/20 11:25 Insulin Lispro 100 Unit/Ml 3 Ml Kwikpen SUBCUT 20 units TIDMEALS KATHRINE Administration Insulin Human Regular 8 unit 07/08/20 09:45 07/08/20 10:01 Insulin Regular, Human 100 Units/Ml 3 Ml Vial IVPUSH 07/08/20 09:46 8 unit ONETIME ONE Administration Loperamide HCl 2 mg 07/09/20 15:40 07/10/20 08:09 Loperamide 2 Mg Cap PO 2 mg Q6H PRN Administration Diarrhea Lorazepam 0 mg 07/08/20 13:07 Lorazepam 2 Mg/Ml Sdv IV ASDIRECTED PRN ETOH WITHDRAWAL Protocol Lorazepam 0 mg 07/08/20 13:07 07/10/20 07:22 Lorazepam 1 Mg Tab PO 1 mg ASDIRECTED PRN Administration ETOH WITHDRAWAL Protocol Metoprolol Succinate 25 mg 07/09/20 09:00 07/10/20 08:09 Metoprolol Succinate 25 Mg Tab.Er PO 25 mg DAILY KATHRINE Administration Metoprolol Succinate 25 mg 07/09/20 01:18 07/09/20 01:25 Metoprolol Succinate 25 Mg Tab.Er PO 07/09/20 01:19 25 mg ONETIME ONE Administration Metoprolol Succinate 25 mg 07/11/20 00:00 Metoprolol Succinate 25 Mg Tab.Er PO 07/16/20 23:59 DAILY Naloxone HCl 0.4 mg 07/08/20 09:48 07/08/20 10:05 Naloxone 0.4 Mg/Ml Sdv IVPUSH 0.4 mg ONETIME PRN Administration Other Ondansetron HCl 4 mg 07/08/20 13:07 07/08/20 19:14 Ondansetron 4 Mg/2 Ml Sdv IV 4 mg Q4H PRN Administration Nausea/Vomiting Polyethylene Glycol 17 gm 07/08/20 13:07 Polyethylene Glycol 3350 Powder 17 Gm Packet PO DAILY PRN Constipation Sodium Chloride 10 ml 07/08/20 13:07 Sodium Chloride 0.9% 10 Ml Syringe FLUSH ASDIRECTED PRN Keep Vein Open - Re-Assessments/Exams Free Text/Narrative Re-Assessment/Exam: 07/08/20 09:17 Reviewed her medical history, she has a history of alcoholic hepatitis and noncompliance. ABGs were obtained, along with a CMP, CBC, EtOH and a Hyatt catheter will be placed prior to giving Narcan. Urine drug screen will be obtained with a urine and a head CT ordered. No need for intubation at this time. 07/08/20 09:31 Clothing was removed, a marijuana cigarette was found underneath her bra, and she had a depends like undergarment on and appeared to be incontinent of stool. 07/08/20 09:33 Prior to obtaining the CT scan her O2 saturations did start to drift down into the upper 80s so she was given nasal cannula O2 at 3 L. When she returns from CT scan if that looks normal we will try Narcan. 07/08/20 09:35 1 Hyatt was placed she did have some response but it was generally nonpurposeful. This increases her GCS to 5. 07/08/20 09:54 Family called and said that she has been drinking heavily for the last 3 weeks. She is drinking a quart of 100 proof liquor daily. Other than marijuana, family denies any other drug use 07/08/20 10:08 Narcan had no effect on her mental status, Romazicon will be tried that if there is no response to that she will be intubated. 07/08/20 10:29 Several minutes after the IV Romazicon, the patient came responsive. Still very sedated but following instructions, stuck her tongue out when asked and started talking. This appears to be oversedation from not only alcohol intoxication but benzodiazepine abuse. We can avoid intubation for now, Dr. Ott agreed to admit her to the ICU for treatment and observation. 07/08/20 10:32 Patient continued to be more responsive after the Romazicon. Bedside critical care provided was 80 minutes. Departure - Departure Time of Disposition: 13:12 Disposition: Admitted As Inpatient 67 Clinical Impression: Hyperglycemia Benzodiazepine overdose of undetermined intent Qualifiers: Encounter type: initial encounter Qualified Code(s): T42.4X4A - Poisoning by benzodiazepines, undetermined, initial encounter Alcohol intoxication Qualifiers: Complication of substance-induced condition: with unspecified complication Qualified Code(s): F10.929 - Alcohol use, unspecified with intoxication, unspecified - Discharge Information Critical Care Note - Critical Care Note Total Time (mins): 80
[2020-07-08] MEDS ORDERED: 50% Dextrose in Water 50 ML Syringe IVPUSH PRN ×2 (09:45→21:55)
[2020-07-08] MEDS ORDERED: Glucagon,Human Recombinant 1 MG Vial IM PRN ×2 (09:45→21:55)
[2020-07-08] MEDS ORDERED: Insulin Regular, Human 100 Units/ML 3 ML Vial IVPUSH ONE (09:45)
[2020-07-08] MEDS ORDERED: Sodium Chloride 0.9% 1,000 ML IV SCH (09:45)
[2020-07-08] MEDS ORDERED: Naloxone 0.4 MG/ML SDV IVPUSH PRN (09:48)
--- NOTE | 2020-07-08 09:55 | CT ---
Head wo Cont CLINICAL HISTORY: Unresponsive COMPARISON: None TECHNIQUE: Transverse scans were obtained from the base of the skull through the vertex without IV contrast on a multislice, multidetector CT scanner. Auto dosage reduction and iterative reconstruction techniques employed. FINDINGS: No focal abnormal parenchymal density is identified.. There is no mass effect, hemorrhage, or extraaxial collection. The basal cisterns and sulci over the convexities are mildly prominent. The ventricles are normal for age. IMPRESSION: No acute intracranial process
[2020-07-08] MEDS ORDERED: Flumazenil 0.1 MG/ML 5 ML MDV IVPUSH PRN ×2 (10:08→10:44)
--- NOTE | 2020-07-08 11:00 | PCM.HP.2 ---
H&P History of Present Illness - General Date of Service: 07/08/20 Admit Problem/Dx: Admission Diagnosis/Problem Admission Diagnosis/Problem Drug overdose Source of Information: Patient, Provider, RN Notes Reviewed History Limitations: Reports: Altered Mental Status (Lethargic and sedated) - History of Present Illness Initial Comments - Free Text/Narative: Ms. Santiago is a 55-year-old woman who was admitted through the emergency department with decreased level of consciousness secondary to drug overdose and alcohol intoxication. She has a known and chronic history of alcohol abuse as well as previous use of benzodiazepines. Family found her unresponsive this morning and she was brought into the emergency department via EMS. Initially had a very low GCS. She was given Narcan with no significant improvement in symptoms. This was followed by romazican given IV which did result in improved level of consciousness and responsiveness. Urine drug screen is positive for benzodiazepines but negative for narcotics. Alcohol level was significantly elevated at 370. She was initially hypoxic and blood gases show evidence of hypoventilation with hypercapnia. When she has been intermittently more responsive has been talking about suicide and wanting to . She has otherwise been fairly lethargic and unable to provide meaningful history concerning symptoms or review of systems. - Related Data Allergies/Adverse Reactions: Allergies Allergy/AdvReac Type Severity Reaction Status Date / Time kiwi Allergy Severe Anaphylactic Verified 07/08/20 09:42 Shock shrimp Allergy Severe Anaphylactic Verified 07/08/20 09:42 Shock niacin Allergy Hives Verified 07/08/20 09:42 Penicillins Allergy Hives Verified 07/08/20 09:42 lisinopril AdvReac Cough Verified 07/08/20 09:42 Home Medications: Home Meds Aspirin [Aspirin EC] 81 mg PO DAILY 09/11/14 [History] Losartan [Cozaar] 100 mg PO DAILY 09/11/14 [History] Metoprolol Succinate [Toprol XL] 25 mg PO DAILY 09/11/14 [History] Multivitamins/Iron/Folic Acid [Cerovite Advanced Formula] 1 tab PO DAILY 09/11/14 [History] Insulin Aspart [Novolog Flexpen] 12 units SUBCUT TID 04/07/15 [History] Omeprazole 20 mg PO BID 07/08/16 [History] *Fidaxomicin 200 mg PO BID 01/19/20 [History] Cyanocobalamin (Vitamin B12) [Vitamin B12] 1 tab PO DAILY 01/19/20 [History] FLUoxetine HCl [Prozac] 60 mg PO DAILY 01/19/20 [History] Ferrous Sulfate 1 tab PO BID 01/19/20 [History] Gabapentin [Neurontin] 800 mg PO TID 01/19/20 [History] Mirtazapine 7.5 mg PO BEDTIME 01/19/20 [History] Ondansetron [Zofran ODT] 4 mg PO TID PRN 01/19/20 [History] Vit 28/Iron Fum/Folic [Theranatal Core Nutrition] 1 tab PO DAILY 01/19/20 [History] QUEtiapine [SEROquel] 50 mg PO BEDTIME 01/19/20 [History] hydrOXYzine pamoate [Hydroxyzine Pamoate] 50 mg PO DAILY PRN 01/19/20 [History] Past Medical History HEENT History: Reports: Impaired Vision Cardiovascular History: Reports: Arrhythmia, CAD, High Cholesterol, Hypertension, RI, Syncope Gastrointestinal History: Reports: Cholelithiasis, Gastritis, GI Bleed, Hemorrhoids, Pancreatitis, Other (See Below) Other Gastrointestinal History: malnutrition Genitourinary History: Reports: Acute Renal Failure, Chronic Renal Insuffiency, Urinary Incontinence, Other (See Below) Other Genitourinary History: decreased kidney function [employer] History: Reports: Dysfunctional Uterine Bleeding, , Other (See B elwolf) Other OB/BYN History: Past heavy vaginal bleeding Musculoskeletal History: Reports: Back Pain, Chronic, Fracture Other Musculoskeletal History: spinal infection. orbital fracture Neurological History: Reports: Concussion, Neuropathy, Diabetic, Other (See Below) Other Neuro History: chronic fatigue syndrom Psychiatric History: Reports: Addiction, Anxiety, Depression, PTSD Endocrine/Metabolic History: Reports: Diabetes, Type II Hematologic History: Reports: Blood Transfusion(s) Other Hematologic History: unable to obtain Immunologic History: Reports: Other (See Below) Other Immunologic History: unable to obtain Oncologic (Cancer) History: Reports: Other (See Below) Other Oncologic History: unable to obtain Dermatologic History: Reports: Psoriasis - Infectious Disease History Infectious Disease History: Reports: MRSA Other Infectious Disease History: unable to obtain - Past Surgical History GI Surgical History: Reports: Appendectomy, Cholecystectomy Social & Family History - Family History Family Medical History: Unobtainable - Tobacco Use Tobacco Use Status *Q: Unknown Ever Used Tobacco - Caffeine Use Caffeine Use: Reports: Other Other Caffeine Use: unknown - Recreational Drug Use Recreational Drug Use: Yes H&P Review of Systems - Review of Systems: Review Of Systems: See Below General: Reports: ROS unobtainable (Decreased level of consciousness) Exam - Exam Exam: See Below - Vital Signs Vital Signs: Last Vital Signs Temp 97.0 F 07/08/20 09:10 Pulse 107 H 07/08/20 10:18 Resp 13 07/08/20 10:01 BP 91/58 L 07/08/20 10:18 Pulse Ox 98 07/08/20 10:18 Weight: 184 lb 15.485 oz - Exam General: Sedated, Lethargic HEENT: Conjunctiva Clear, Hearing Intact, Mucosa Moist & [place], Normal Nasal Septum, Posterior Pharynx Clear, Pupils Equal Neck: Supple, Trachea Midline, +2 Carotid Pulse wo Bruit Lungs: Clear to Auscultation, Normal Respiratory Effort Cardiovascular: Regular Rate, Regular Rhythm, Normal S1, Normal S2. No: Systol ic Murmur, Diastolic Murmur GI/Abdominal Exam: Soft, Non-Tender, No Organomegaly, No Distention Extremities: Non-Tender, No Pedal Edema Skin: Warm, Dry, Intact - Patient Data Lab Results Last 24 hrs: Laboratory Results - last 24 hr 07/08/20 07/08/20 07/08/20 Range/Units 09:10 09:10 09:10 WBC 7.6 (4.5-11.0) K/uL RBC 3.99 (3.30-5.50) M/uL Hgb 12.3 (12.0-15.0) g/dL Hct 37.2 (36.0-48.0) % MCV 93 (80-98) fL MCH 31 (27-31) pg MCHC 33 (32-36) % Plt Count 151 (150-400) K/uL Neut % (Auto) 53 (36-66) % Lymph % (Auto) 35 (24-44) % [place] % (Auto) 11 H (2-6) % Eos % (Auto) 1 L (2-4) % Baso % (Auto) 0 (0-1) % Puncture Site ABG pH (7.350-7.450) ABG pCO2 (35.0-42.0) mmHg ABG pO2 (75.0-100.0) mmHg ABG HCO3 (22.0-26.0) mmol/L ABG Total CO2 (21.0-25.0) mmol/L ABG O2 Saturation (95.0-98.0) % ABG O2 Content (15.0-23.0) %vol ABG Base Excess mm/L ABG Hemoglobin (12.0-16.0) g/dL ABG Oxyhemoglobin % ABG Carboxyhemoglobin (0.0-1.6) % ABG Methemoglobin % Shawn Test O2 Delivery Device Oxygen Flow Rate L Sodium 132 L (140-148) mmol/L Potassium 3.9 (3.6-5.2) mmol/L Chloride 91 L (100-108) mmol/L Carbon Dioxide 26 (21-32) mmol/L Anion Gap 18.9 H (5.0-14.0) mmol/L BUN 9 (7-18) mg/dL Creatinine 2.3 H D (0.6-1.0) mg/dL Est Cr Clr Drug Dosing TNP Estimated GFR (MDRD) 22 L (>60) Glucose 496 H* (74-106) mg/dL Calcium 8.6 (8.5-10.1) mg/dL Total Bilirubin 0.8 (0.2-1.0) mg/dL AST 58 H (15-37) U/L ALT 24 (12-78) U/L Alkaline Phosphatase 386 H (46-116) U/L Ammonia 43 H (11-32) mmol/L Total Protein 7.7 (6.4-8.2) g/dL Albumin 3.1 L (3.4-5.0) g/dL Globulin 4.6 H (2.3-3.5) g/dL Albumin/Globulin Ratio 0.7 L (1.2-2.2) Urine Opiates Screen (NEGATIVE) Ur Oxycodone Screen (NEGATIVE) Urine Methadone Screen (NEGATIVE) Ur Propoxyphene Screen (NEGATIVE) Ur Barbiturates Screen (NEGATIVE) Ur Tricyclics Screen (NEGATIVE) Ur Phencyclidine Scrn (NEGATIVE) Ur Amphetamine Screen (NEGATIVE) U Methamphetamines Scrn (NEGATIVE) Urine MDMA Screen (NEGATIVE) U Benzodiazepines Scrn (NEGATIVE) U Cocaine Metab Screen (NEGATIVE) U Marijuana (THC) Screen (NEGATIVE) Ethyl Alcohol mg/dL 03/19/21 03/19/21 03/19/21 Range/Units 09:10 09:11 09:22 WBC (4.5-11.0) K/uL RBC (3.30-5.50) M/uL Hgb (12.0-15.0) g/dL Hct (36.0-48.0) % MCV (80-98) fL MCH (27-31) pg MCHC (32-36) % Plt Count (150-400) K/uL Neut % (Auto) (36-66) % Lymph % (Auto) (24-44) % [place] % (Auto) (2-6) % Eos % (Auto) (2-4) % Baso % (Auto) (0-1) % Puncture Site Lt radial ABG pH 7.267 L (7.350-7.450) ABG pCO2 55.5 H (35.0-42.0) mmHg ABG pO2 69.7 L (75.0-100.0) mmHg ABG HCO3 24.5 (22.0-26.0) mmol/L ABG Total CO2 23.1 (21.0-25.0) mmol/L ABG O2 Saturation 89.0 L (95.0-98.0) % ABG O2 Content 13.8 L (15.0-23.0) %vol ABG Base Excess -2.5 mm/L ABG Hemoglobin 11.5 L (12.0-16.0) g/dL ABG Oxyhemoglobin 84.9 % ABG Carboxyhemoglobin 3.7 H (0.0-1.6) % ABG Methemoglobin 0.9 % Shawn Test Pass O2 Delivery Device Room air Oxygen Flow Rate 4.0 L Sodium (140-148) mmol/L Potassium (3.6-5.2) mmol/L Chloride (100-108) mmol/L Carbon Dioxide (21-32) mmol/L Anion Gap (5.0-14.0) mmol/L BUN (7-18) mg/dL Creatinine (0.6-1.0) mg/dL Est Cr Clr Drug Dosing Estimated GFR (MDRD) (>60) Glucose (74-106) mg/dL Calcium (8.5-10.1) mg/dL Total Bilirubin (0.2-1.0) mg/dL AST (15-37) U/L ALT (12-78) U/L Alkaline Phosphatase (46-116) U/L Ammonia (11-32) mmol/L Total Protein (6.4-8.2) g/dL Albumin (3.4-5.0) g/dL Globulin (2.3-3.5) g/dL Albumin/Globulin Ratio (1.2-2.2) Urine Opiates Screen Negative (NEGATIVE) Ur Oxycodone Screen Negative (NEGATIVE) Urine Methadone Screen Negative (NEGATIVE) Ur Propoxyphene Screen Negative (NEGATIVE) Ur Barbiturates Screen Negative (NEGATIVE) Ur Tricyclics Screen Negative (NEGATIVE) Ur Phencyclidine Scrn Negative (NEGATIVE) Ur Amphetamine Screen Negative (NEGATIVE) U Methamphetamines Scrn Negative (NEGATIVE) Urine MDMA Screen Negative (NEGATIVE) U Benzodiazepines Scrn Presumptive positive H (NEGATIVE) U Cocaine Metab Screen Negative (NEGATIVE) U Marijuana (THC) Screen Presumptive positive H (NEGATIVE) Ethyl Alcohol 370 mg/dL Result Diagrams: 07/08/20 09:10 07/08/20 09:10 Sepsis Event Note - Evaluation Sepsis Screening Result: No Definite Risk - Focused Exam Vital Signs: Vital Signs Temp Pulse Resp BP Pulse Ox 07/08/20 10:18 107 H 91/58 L 98 07/08/20 10:01 105 H 13 92/49 L 98 07/08/20 09:17 102 H 15 92/44 L 94 L 07/08/20 09:10 97.0 F 102 H 14 83/48 L 85 L *Q Meaningful Use (ADM) - VTE Risk Assess *Q Each Risk Factor Represents 1 Point: Age 41 - 59 years, Obesity ( BMI > 25 kg/m2) Total Score 1 Point Risk Factors: 2 Each Risk Factor Represents 2 Points: None Total Score 2 Point Risk Factors: 0 Each Risk Factor Represents 3 Points: None Total Score 3 Point Risk Factors: 0 Each Risk Factor Represents 5 Points: None Total Score 5 Point Risk Factors: 0 Venous Thromboembolism Risk Factor Score *Q: 2 Problem List Initiated/Reviewed/Updated: Yes Orders Last 24hrs: Active Orders 24 hr Category Date Time Status Patient Status Manage Transfer [TRANSFER] Routine ADT 07/08/20 10:51 Ordered Insert Urinary Catheter [OM.PC] Q24H Care 07/08/20 09:15 Ordered RT End Tidal CO2 Monitoring [RC] ASDIRECTED Care 07/08/20 10:50 Active Urinary Catheter Assessment [RC] ASDIRECTED Care 07/08/20 09:11 Active Dextrose 50% in Water Med 07/08/20 09:45 Active 50 ml IVPUSH ASDIRECTED PRN Glucagon,Human Recombinant [GlucaGen] Med 07/08/20 09:45 Active 1 mg IM ASDIRECTED PRN Sodium Chloride 0.9% [Normal Saline] 1,000 ml Med 07/08/20 09:45 Active IV ASDIRECTED flumazeniL [Romazicon] Med 07/08/20 10:48 Ordered 0.2 mg IVPUSH Q20M PRN Resuscitation Status Routine Resus Stat 07/08/20 10:53 Ordered Medication Orders Dextrose/Water (50% Dextrose In Water 50 Ml Syringe) 50 ml IVPUSH ASDIRECTED PRN PRN Reason: Hypoglycemia Flumazenil (Flumazenil 0.1 Mg/Ml 5 Ml Mdv) 0.2 mg IVPUSH Q20M PRN PRN Reason: Other Stop: 07/09/20 10:49 Glucagon (Glucagon,Human Recombinant 1 Mg Vial) 1 mg IM ASDIRECTED PRN PRN Reason: Hypoglycemia Sodium Chloride (Normal Saline) 1,000 mls @ 1,000 mls/hr IV ASDIRECTED KATHRINE Last Admin: 07/08/20 09:20 Dose: 1,000 mls/hr Documented by: STERLING Assessment/Plan Comment:: ASSESSMENT AND PLAN DRUG OVERDOSE-likely that this was intentional as possible suicide attempt, when she has been intermittently awake has talked about wanting to . There is that this was likely benzodiazepine combined with alcohol. Urine drug screen positive for benzodiazepines and she has responded to Romazicon -Hold sedating medications -Continuous pulse oximetry and end-tidal CO2 monitoring -Monitor in ICU -Suicide precautions -Will likely require inpatient psych evaluation -Intermittent use of Romazicon, as needed for GSC of 8 or less ALCOHOL INTOXICATION-longstanding history of alcohol dependence and abuse -Monitor closely for alcohol withdrawal -Banana bag -Alcohol withdrawal protocol ACUTE HYPOXIC AND HYPERCAPNIC RESPIRATORY FAILURE-secondary to combined alcohol intoxication and benzodiazepine overdose -Supplemental oxygen as needed -Monitoring as above MAINTENANCE ISSUES -DVT prophylaxis; SCUDs -GI prophylaxis; not indicated -Hyatt catheter; Hyatt catheter in place until she is more responsive -Nutrition; regular diet when more responsive -Nicotine dependence; not required CODE STATUS-FULL CODE ADMISSION STATUS-patient will be admitted to inpatient status, expect at least a 2 night hospital stay for evaluation and management of problems as outlined above. At the time of this admission I do not reasonably expected evaluation and management of this problem will require more than a 96 hour hospital stay. DISPOSITION-anticipate discharge to home after the hospital stay. - Mortality Measure Prognosis:: Good
[2020-07-08] MEDS: Flumazenil 0.1 MG/ML 5 ML MDV IVPUSH PRN ×5 (11:22→17:56)
[2020-07-08] MEDS ORDERED: Sodium Chloride 0.9% 10 ML Syringe FLUSH PRN (13:07)
[2020-07-08] MEDS ORDERED: Ondansetron 4 MG/2 ML SDV IV PRN (13:07)
[2020-07-08] MEDS ORDERED: Polyethylene Glycol 3350 Powder 17 GM Packet PO PRN (13:07)
[2020-07-08] MEDS ORDERED: Acetaminophen 325 MG Tab PO PRN (13:07)
[2020-07-08] MEDS ORDERED: LORazepam 2 MG/ML SDV IV PRN (13:07)
[2020-07-08] MEDS ORDERED: MVI, Adult with Vitamin K 10 ML, Thiamine 100 MG, Folic Acid 1 MG, Magnesium Sulfate 2 ... IV ONE ×5 (14:00)
[2020-07-08] MEDS: Gabapentin 400 MG Cap PO SCH ×2 (14:39→21:39)
[2020-07-08] MEDS: Sodium Chloride 0.9% 1,000 ML IV SCH ×2 (15:39→23:33)
[2020-07-08] MEDS: LORazepam 1 MG Tab PO PRN (19:32)
[2020-07-08] MEDS ORDERED: Dimethicone 20%/Zinc Oxide 25% 56 GM Spray Bottle TOP ONE (20:00)
[2020-07-08] MEDS ORDERED: Dimethicone 20%/Zinc Oxide 25% 56 GM Spray Bottle TOP PRN (20:07)
[2020-07-08] MEDS ORDERED: Insulin Lispro 100 Unit/ML 3 ML KwikPen SUBCUT ONE (22:25)
[2020-07-08] MEDS: Insulin Glargine,Human Rec. Analog 100 Units/ML 3 ML Pen SUBCUT SCH (22:32)
[2020-07-08] MEDS: Insulin Lispro 100 Unit/ML 3 ML KwikPen SUBCUT SCH (23:07)
[2020-07-09] MEDS ORDERED: Metoprolol Succinate 25 MG Tab.ER PO ONE (01:18)
[2020-07-09] MEDS: Gabapentin 400 MG Cap PO SCH ×3 (05:34→21:29)
[2020-07-09] MEDS: Sodium Chloride 0.9% 1,000 ML IV SCH (07:32)
[2020-07-09] MEDS: Insulin Lispro 100 Unit/ML 3 ML KwikPen SUBCUT SCH ×7 (07:54→21:30)
[2020-07-09] MEDS: Folic Acid 1 MG Tab PO SCH (08:23)
[2020-07-09] MEDS: Metoprolol Succinate 25 MG Tab.ER PO SCH (08:26)
[2020-07-09] MEDS: LORazepam 1 MG Tab PO PRN ×2 (08:30)
--- NOTE | 2020-07-09 14:09 | PCM.PN ---
- General Info Date of Service: 07/09/20 Subjective Update: Ms. Santiago has improved since admission yesterday, more alert and interactive. She has been evaluated by the crisis team today and is not felt to be actively suicidal. She is not showing significant evidence of alcohol withdrawal thus far. She has continued to have loose stools and reports a history of previous C. difficile infection. She has been tested for C. difficile and is shown to be shedding the bacteria, but no active toxins are present. - Review of Systems General: Reports: Weakness, Fatigue Pulmonary: Reports: No Symptoms Cardiovascular: Reports: No Symptoms Gastrointestinal: Reports: Diarrhea. Denies: Abdominal Pain, Decreased Appetite, Difficulty Swallowing, Hematochezia, Melena, Nausea, Vomiting Genitourinary: Reports: No Symptoms - Patient Data Vitals - Most Recent: Last Vital Signs Temp 97 F 07/09/20 13:00 Pulse 102 H 07/09/20 13:00 Resp 18 07/09/20 13:00 BP 144/84 H 07/09/20 13:00 Pulse Ox 99 07/09/20 13:00 Weight - Most Recent: 166 lb 12.8 oz I&O - Last 24 Hours: Intake & Output 07/08/20 07/09/20 07/09/20 22:59 06:59 14:59 Intake Total 1272 2364 840 Output Total 550 2050 Balance 722 314 840 Lab Results Last 24 Hours: Laboratory Results - last 24 hr 07/09/20 07/09/20 Range/Units 05:35 05:35 WBC 5.6 (4.5-11.0) K/uL RBC 3.18 L (3.30-5.50) M/uL Hgb 9.7 L D (12.0-15.0) g/dL Hct 30.3 L (36.0-48.0) % MCV 95 (80-98) fL MCH 31 (27-31) pg MCHC 32 (32-36) % Plt Count 74 L (150-400) K/uL Neut % (Auto) 74 H (36-66) % Lymph % (Auto) 19 L (24-44) % [place] % (Auto) 6 (2-6) % Eos % (Auto) 1 L (2-4) % Baso % (Auto) 0 (0-1) % Sodium 134 L (140-148) mmol/L Potassium 3.8 (3.6-5.2) mmol/L Chloride 99 L (100-108) mmol/L Carbon Dioxide 27 (21-32) mmol/L Anion Gap 11.8 (5.0-14.0) mmol/L BUN 8 (7-18) mg/dL Creatinine 1.5 H (0.6-1.0) mg/dL Est Cr Clr Drug Dosing 37.02 mL/min Estimated GFR (MDRD) 36 L (>60) Glucose 198 H (74-106) mg/dL Calcium 7.5 L (8.5-10.1) mg/dL Ramón Results Last 24 Hours: Microbiology 07/09/20 12:30 Clostridioides difficile (PCR) - Final Stool / Feces Med Orders - Current: Current Medications Acetaminophen (Acetaminophen 325 Mg Tab) 650 mg PO Q4H PRN PRN Reason: Pain (Mild 1-3)/fever Dextrose/Water (50% Dextrose In Water 50 Ml Syringe) 50 ml IVPUSH ASDIRECTED PRN PRN Reason: Hypoglycemia Dimethicone/Zinc Oxide (Dimethicone 20%/Zinc Oxide 25% 56 Gm Yoder Bottle) 0 gm TOP ASDIRECTED PRN PRN Reason: Rash Last Admin: 07/08/20 20:18 Dose: 1 dose Documented by: Folic Acid (Folic Acid 1 Mg Tab) 1 mg PO DAILY [facility] Last Admin: 07/09/20 08:23 Dose: 1 mg Documented by: Gabapentin (Gabapentin 400 Mg Cap) 400 mg PO Q8H [facility] Stop: 07/12/20 06:01 Last Admin: 07/09/20 13:05 Dose: 400 mg Documented by: Gabapentin (Gabapentin 100 Mg Cap) 200 mg PO Q8H [facility] Stop: 07/16/20 14:01 Glucagon (Glucagon,Human Recombinant 1 Mg Vial) 1 mg IM ASDIRECTED PRN PRN Reason: Hypoglycemia Sodium Chloride (Normal Saline) 1,000 mls @ 125 mls/hr IV ASDIRECTED [facility] Last Admin: 07/09/20 07:32 Dose: 125 mls/hr Documented by: Insulin Glargine (Insulin Glargine,Human Rec. Analog 100 Units/Ml 3 Ml Pen) 40 units SUBCUT BEDTIME [facility] Last Admin: 07/08/20 22:32 Dose: 40 unit Documented by: Insulin Human Lispro (Insulin Lispro 100 Unit/Ml 3 Ml Kwikpen) 0 unit SUBCUT QIDACANDBED [facility]; Protocol Last Admin: 07/09/20 13:00 Dose: Not Given Documented by: Insulin Human Lispro (Insulin Lispro 100 Unit/Ml 3 Ml Kwikpen) 20 unit SUBCUT TIDMEALS [facility] Last Admin: 07/09/20 13:02 Dose: 20 units Documented by: Lorazepam (Lorazepam 2 Mg/Ml Sdv) 0 mg IV ASDIRECTED PRN; Protocol PRN Reason: ETOH WITHDRAWAL Lorazepam (Lorazepam 1 Mg Tab) 0 mg PO ASDIRECTED PRN; Protocol PRN Reason: ETOH WITHDRAWAL Last Admin: 07/09/20 08:30 Dose: 1 mg Documented by: Metoprolol Succinate (Metoprolol Succinate 25 Mg Tab.Er) 25 mg PO DAILY [facility] Last Admin: 07/09/20 08:26 Dose: 25 mg Documented by: Ondansetron HCl (Ondansetron 4 Mg/2 Ml Sdv) 4 mg IV Q4H PRN PRN Reason: Nausea/Vomiting Last Admin: 07/08/20 19:14 Dose: 4 mg Documented by: Polyethylene Glycol (Polyethylene Glycol 3350 Powder 17 Gm Packet) 17 gm PO DAILY PRN PRN Reason: Constipation Sodium Chloride (Sodium Chloride 0.9% 10 Ml Syringe) 10 ml FLUSH ASDIRECTED PRN PRN Reason: Keep Vein Open Discontinued Medications Dextrose/Water (50% Dextrose In Water 50 Ml Syringe) 50 ml IVPUSH ASDIRECTED PRN PRN Reason: Hypoglycemia Dimethicone/Zinc Oxide (Dimethicone 20%/Zinc Oxide 25% 56 Gm Yoder Bottle) Confirm Administered Dose 56 gm TOP .STK-MED ONE Stop: 07/08/20 20:01 Last Admin: 07/08/20 20:08 Dose: Not Given Documented by: Flumazenil (Flumazenil 0.1 Mg/Ml 5 Ml Mdv) 0.2 mg IVPUSH ONETIME PRN PRN Reason: Other Last Admin: 07/08/20 10:16 Dose: 0.2 mg Documented by: Flumazenil (Flumazenil 0.1 Mg/Ml 5 Ml Mdv) 0.2 mg IVPUSH ONETIME PRN PRN Reason: Other Last Admin: 07/08/20 10:47 Dose: 0.2 mg Documented by: Flumazenil (Flumazenil 0.1 Mg/Ml 5 Ml Mdv) 0.2 mg IVPUSH Q20M PRN PRN Reason: Other Stop: 07/09/20 10:49 Last Admin: 07/08/20 17:56 Dose: 0.2 mg Documented by: Glucagon (Glucagon,Human Recombinant 1 Mg Vial) 1 mg IM ASDIRECTED PRN PRN Reason: Hypoglycemia Sodium Chloride (Normal Saline) 1,000 mls @ 1,000 mls/hr IV ASDIRECTED KATHRINE Last Admin: 07/08/20 09:20 Dose: 1,000 mls/hr Documented by: Multivitamins/Minerals 10 ml/Thiamine HCl 100 mg/ Folic Acid 1 mg/ Magnesium Sulfate 2 gm/ Sodium Chloride 1,015.2 mls @ 100 mls/hr IV ONETIME ONE Stop: 07/09/20 00:09 Last Admin: 07/08/20 14:29 Dose: 100 mls/hr Documented by: Insulin Human Lispro (Insulin Lispro 100 Unit/Ml 3 Ml Kwikpen) 14 unit SUBCUT ONETIME ONE Stop: 07/08/20 22:26 Last Admin: 07/08/20 22:34 Dose: 14 unit Documented by: Insulin Human Regular (Insulin Regular, Human 100 Units/Ml 3 Ml Vial) 8 unit IVPUSH ONETIME ONE Stop: 07/08/20 09:46 Last Admin: 07/08/20 10:01 Dose: 8 unit Documented by: Metoprolol Succinate (Metoprolol Succinate 25 Mg Tab.Er) 25 mg PO ONETIME ONE Stop: 07/09/20 01:19 Last Admin: 07/09/20 01:25 Dose: 25 mg Documented by: Naloxone HCl (Naloxone 0.4 Mg/Ml Sdv) 0.4 mg IVPUSH ONETIME PRN PRN Reason: Other Last Admin: 07/08/20 10:05 Dose: 0.4 mg Documented by: - Exam General: Alert, Oriented, Cooperative, Mild Distress Lungs: Clear to Auscultation, Normal Respiratory Effort Cardiovascular: Regular Rate, Regular Rhythm, No Murmurs GI/Abdominal Exam: Soft, Non-Tender, No Organomegaly, No Distention Extremities: Non-Tender, No Pedal Edema - Patient Data Lab Results Last 24 hrs: Laboratory Results - last 24 hr 07/09/20 07/09/20 Range/Units 05:35 05:35 WBC 5.6 (4.5-11.0) K/uL RBC 3.18 L (3.30-5.50) M/uL Hgb 9.7 L D (12.0-15.0) g/dL Hct 30.3 L (36.0-48.0) % MCV 95 (80-98) fL MCH 31 (27-31) pg MCHC 32 (32-36) % Plt Count 74 L (150-400) K/uL Neut % (Auto) 74 H (36-66) % Lymph % (Auto) 19 L (24-44) % [place] % (Auto) 6 (2-6) % Eos % (Auto) 1 L (2-4) % Baso % (Auto) 0 (0-1) % Sodium 134 L (140-148) mmol/L Potassium 3.8 (3.6-5.2) mmol/L Chloride 99 L (100-108) mmol/L Carbon Dioxide 27 (21-32) mmol/L Anion Gap 11.8 (5.0-14.0) mmol/L BUN 8 (7-18) mg/dL Creatinine 1.5 H (0.6-1.0) mg/dL Est Cr Clr Drug Dosing 37.02 mL/min Estimated GFR (MDRD) 36 L (>60) Glucose 198 H (74-106) mg/dL Calcium 7.5 L (8.5-10.1) mg/dL Result Diagrams: 07/09/20 05:35 07/09/20 05:35 Ramón Results Last 24 hrs: Microbiology 07/09/20 12:30 Clostridioides difficile (PCR) - Final Stool / Feces Sepsis Event Note - Evaluation Sepsis Screening Result: No Definite Risk - Focused Exam Vital Signs: Vital Signs Temp Pulse Pulse Resp BP BP Pulse Ox 07/09/20 13:00 97 F 102 H 18 144/84 H 99 07/09/20 12:00 98.2 F 97 20 129/74 97 07/09/20 11:00 96.7 F L 95 20 128/67 96 07/09/20 10:00 99 F 99 18 109/59 L 93 L 07/09/20 09:00 98.2 F 106 H 21 H 100/61 96 07/09/20 08:26 107 H 126/69 07/09/20 08:00 98.4 F 107 H 20 126/69 97 07/09/20 07:00 98.4 F 108 H 20 101/65 95 07/09/20 06:00 98.1 F 113 H 20 110/62 91 L 07/09/20 05:00 113 H 21 H 120/72 93 L 07/09/20 04:00 120 H 22 H 116/61 91 L 07/09/20 03:00 127 H 19 102/47 L 95 - Problem List Review Problem List Initiated/Reviewed/Updated: Yes - My Orders Last 24 Hours: My Active Orders 07/08/20 14:00 Gabapentin [Neurontin] 400 mg PO Q8H 07/08/20 14:09 Suicide Precautions [RC] Q15M 07/08/20 Dinner Consistent Carbohydrate Diet [DIET] 07/08/20 20:07 Dimethicone/Zinc Oxide [Rash Relief-Zinc Oxide Yoder] 0 gm TOP ASDIRECTED PRN 07/08/20 21:55 Blood Glucose Check, Bedside [RC] QIDACANDBED Dextrose 50% in Water 50 ml IVPUSH ASDIRECTED PRN Glucagon,Human Recombinant [GlucaGen] 1 mg IM ASDIRECTED PRN 07/08/20 22:00 Insulin Glarg,Human.Rec.Analog [LantUS Solostar] 40 units SUBCUT BEDTIME Insulin Lispro [HumaLOG] See Protocol SUBCUT QIDACANDBED 07/09/20 08:00 Insulin Lispro [HumaLOG] 20 unit SUBCUT TIDMEALS 07/09/20 09:00 Folic Acid 1 mg PO DAILY Metoprolol Succinate [Toprol XL] 25 mg PO DAILY 07/09/20 12:30 CDiff [CLOS DIFFICILE PCR W/REFLEX] [RM] Stat CLOSTRIDIUM DIFFICILE TOXIN [RM] Stat 07/09/20 12:59 CORONAVIRUS COVID-19 RAPID [MOLEC] Urgent 07/12/20 14:00 Gabapentin [Neurontin] 200 mg PO Q8H - Plan Plan:: ASSESSMENT AND PLAN DRUG OVERDOSE-slowly improving and is currently medically stable. After evaluation by crisis team she is not felt to be suicidal at this time. ALCOHOL INTOXICATION-longstanding history of alcohol dependence and abuse. Evidence of active withdrawal, she remains at high risk because of her longstanding alcohol use -Monitor closely for alcohol withdrawal -Alcohol withdrawal protocol -Plan for discharge to detox ACUTE HYPOXIC AND HYPERCAPNIC RESPIRATORY FAILURE-resolved DIARRHEA-no evidence of toxin producing C. difficile at this time -Imodium 4 times daily as needed -Further outpatient evaluation after detox MAINTENANCE ISSUES -DVT prophylaxis; SCUDs -GI prophylaxis; not indicated -Hyatt catheter; Hyatt catheter in place until she is more responsive -Nutrition; regular diet when more responsive -Nicotine dependence; not required CODE STATUS-FULL CODE ADMISSION STATUS-patient will be admitted to inpatient status, expect at least a 2 night hospital stay for evaluation and management of problems as outlined above. At the time of this admission I do not reasonably expected evaluation and management of this problem will require more than a 96 hour hospital stay. DISPOSITION-anticipate discharge to home after the hospital stay.
[2020-07-09] MEDS: Loperamide 2 MG Cap PO PRN (15:58)
[2020-07-09] MEDS: Insulin Glargine,Human Rec. Analog 100 Units/ML 3 ML Pen SUBCUT SCH (21:30)
[2020-07-10] MEDS: Loperamide 2 MG Cap PO PRN ×2 (01:16→08:09)
[2020-07-10] MEDS: Gabapentin 400 MG Cap PO SCH (05:05)
[2020-07-10] MEDS: LORazepam 1 MG Tab PO PRN (07:22)
[2020-07-10] MEDS: Insulin Lispro 100 Unit/ML 3 ML KwikPen SUBCUT SCH ×4 (07:22→11:25)
[2020-07-10] MEDS: Metoprolol Succinate 25 MG Tab.ER PO SCH (08:09)
[2020-07-10] MEDS: Folic Acid 1 MG Tab PO SCH (08:09)
[2020-07-10 10:09] VITALS: BP 147/85; PULSE 114
--- NOTE | 2020-07-10 10:47 | PCM.DCSUM1 ---
Discharge Summary - Hospital Course Brief History: Ms. Satniago is a 55-year-old woman who was admitted through the emergency department with lethargy and decreased level of consciousness secondary to alcohol intoxication and benzodiazepine overdose. - Discharge Data Discharge Date: 07/10/20 Discharge Disposition: DC/Tfer to [facility]pt Rehab Fac [facility] Condition: Fair - Referral to Home Health Primary Care Physician: PCP None - Discharge Diagnosis/Problem(s) (1) Alcohol intoxication SNOMED Code(s): 33000797 ICD Code: F10.929 - ALCOHOL USE, UNSPECIFIED WITH INTOXICATION, UNSPECIFIED Status: Acute Current Visit: Yes Qualifiers: Complication of substance-induced condition: with unspecified complication Qualified Code(s): F10.929 - Alcohol use, unspecified with intoxication, unspecified (2) Benzodiazepine overdose of undetermined intent SNOMED Code(s): 707401693 ICD Code: T42.4X4A - POISONING BY BENZODIAZEPINES, UNDETERMINED, INIT ENCNTR Status: Acute Current Visit: Yes Qualifiers: Encounter type: initial encounter Qualified Code(s): T42.4X4A - Poisoning by benzodiazepines, undetermined, initial encounter (3) Alcohol dependence SNOMED Code(s): 70138913 ICD Code: F10.20 - ALCOHOL DEPENDENCE, UNCOMPLICATED Status: Acute Current Visit: No Qualifiers: Substance use status: uncomplicated Qualified Code(s): F10.20 - Alcohol dependence, uncomplicated (4) Diabetes mellitus type 2, insulin dependent SNOMED Code(s): 184296372 ICD Code: E11.9 - TYPE 2 DIABETES MELLITUS WITHOUT COMPLICATIONS; Z79.4 - RESERVATIONIST (CURRENT) USE OF INSULIN Status: Chronic Priority: Medium Current Visit: No (5) Thrombocytopenia SNOMED Code(s): 169271427 ICD Code: D69.6 - THROMBOCYTOPENIA, UNSPECIFIED Status: Acute Current Visit: Yes - Patient Summary/Data Hospital Course: Ms. Santiago is a 55-year-old woman who was admitted through the emergency department with decreased level of consciousness secondary to drug overdose and alcohol intoxication. She has a known and chronic history of alcohol abuse as well as previous use of benzodiazepines. Family found her unresponsive this morning and she was brought into the emergency department via EMS. Initially had a very low GCS. She was given Narcan with no significant improvement in symptoms. This was followed by romazican given IV which did result in improved level of consciousness and responsiveness. Urine drug screen is positive for benzodiazepines but negative for narcotics. Alcohol level was significantly elevated at 370. She was initially hypoxic and blood gases show evidence of hypoventilation with hypercapnia. When she has been intermittently more responsive has been talking about suicide and wanting to . She has otherwise been fairly lethargic and unable to provide meaningful history concerning symptoms or review of systems. She was admitted to the ICU for intensive monitoring and placed on suicide precautions. She did receive IV fluids for hydration and intermittent doses of Romazicon for management of her benzodiazepine overdose. She has a known history of diabetes and she was started back on her usual doses of insulin as well as sliding scale Humalog. This did result in improved control of her hyperglycemia. She did have intermittent diarrhea throughout hospitalization with a previous history of C. difficile infection. C. difficile was retested and found to be present but no toxins were found so she was not further treated or evaluated. She was seen and evaluated by a member of the crisis team. After that evaluation she was felt not to be at risk for suicide and was taken off of suicide precautions. She did develop thrombocytopenia during hospital stay thought secondary to some element of chronic liver disease related to alcohol use. Follow-up CBC should be obtained at the time of her appointment with primary care. She had not been taking many of her medications recently and will be discharged on her usual insulin therapy as well as metoprolol. She will be discharged to detox facility for management of alcohol withdrawal. Activity will be as tolerated and she should be on a diabetic diet. Follow-up appointment should be scheduled with her primary care provider within 1 week, CBC should be obtained at the time of follow-up appointment. - Patient Instructions Diet: No Alcoholic Beverages, Diabetic Diet Activity: As Tolerated Other/Special Instructions: Please schedule follow-up appointment with primary care provider in 1 week. - Discharge Plan *PRESCRIPTION DRUG MONITORING PROGRAM REVIEWED*: Not Applicable *COPY OF PRESCRIPTION DRUG MONITORING REPORT IN PATIENT ERICA: Not Applicable Prescriptions/Med Rec: Metoprolol Succinate [Toprol XL] 25 mg PO DAILY #30 tab.er Home Medications: Home Meds Insulin Aspart [Novolog Flexpen] 20 units SUBCUT TID 04/07/15 [History] Insulin Glarg,Human.Rec.Analog [Lantus Solostar] 40 units SQ BEDTIME 07/09/20 [History] Metoprolol Succinate [Toprol XL] 25 mg PO DAILY #30 tab.er 07/10/20 [Rx] Referrals: PCP,None [Primary Care Provider] - - Discharge Summary/Plan Comment DC Time >30 min.: No - Patient Data Vitals - Most Recent: Last Vital Signs Temp 98.9 F 07/10/20 08:00 Pulse 114 H 07/10/20 10:00 Resp 22 H 07/10/20 10:00 BP 147/85 H 07/10/20 10:00 Pulse Ox 94 L 07/10/20 10:00 Weight - Most Recent: 166 lb 12.8 oz I&O - Last 24 hours: Intake & Output 07/09/20 07/10/20 07/10/20 22:59 06:59 14:59 Intake Total 780 500 780 Output Total 700 Balance 780 -200 780 Lab Results - Last 24 hrs: Laboratory Results - last 24 hr 07/09/20 07/10/20 07/10/20 Range/Units 12:59 05:30 05:30 WBC 6.5 (4.5-11.0) K/uL RBC 3.65 (3.30-5.50) M/uL Hgb 11.0 L (12.0-15.0) g/dL Hct 34.7 L (36.0-48.0) % MCV 95 (80-98) fL MCH 30 (27-31) pg MCHC 32 (32-36) % Plt Count 63 L (150-400) K/uL Neut % (Auto) 75 H (36-66) % Lymph % (Auto) 19 L (24-44) % [place] % (Auto) 5 (2-6) % Eos % (Auto) 1 L (2-4) % Baso % (Auto) 0 (0-1) % Sodium 134 L (140-148) mmol/L Potassium 4.2 (3.6-5.2) mmol/L Chloride 99 L (100-108) mmol/L Carbon Dioxide 26 (21-32) mmol/L Anion Gap 13.2 (5.0-14.0) mmol/L BUN 7 (7-18) mg/dL Creatinine 1.3 H (0.6-1.0) mg/dL Est Cr Clr Drug Dosing 42.72 mL/min Estimated GFR (MDRD) 43 L (>60) Glucose 239 H (74-106) mg/dL Calcium 8.2 L (8.5-10.1) mg/dL SARS CoV-2 RNA Rapid NEVILLE Negative NILDA Results - Last 24 hrs: Microbiology 07/09/20 12:30 Clostridioides difficile Toxin Assay - Final Stool / Feces Clostridioides difficile (PCR) - Final Med Orders - Current: Current Medications Acetaminophen (Acetaminophen 325 Mg Tab) 650 mg PO Q4H PRN PRN Reason: Pain (Mild 1-3)/fever Dextrose/Water (50% Dextrose In Water 50 Ml Syringe) 50 ml IVPUSH ASDIRECTED PRN PRN Reason: Hypoglycemia Dimethicone/Zinc Oxide (Dimethicone 20%/Zinc Oxide 25% 56 Gm Purmela Bottle) 0 gm TOP ASDIRECTED PRN PRN Reason: Rash Last Admin: 07/08/20 20:18 Dose: 1 dose Documented by: Folic Acid (Folic Acid 1 Mg Tab) 1 mg PO DAILY [facility] [place] Last Admin: 07/10/20 08:09 Dose: 1 mg Documented by: Gabapentin (Gabapentin 400 Mg Cap) 400 mg PO Q8H [facility] [place] Stop: 07/12/20 06:01 Last Admin: 07/10/20 05:05 Dose: 400 mg Documented by: Gabapentin (Gabapentin 100 Mg Cap) 200 mg PO Q8H [facility] [place] Stop: 07/16/20 14:01 Glucagon (Glucagon,Human Recombinant 1 Mg Vial) 1 mg IM ASDIRECTED PRN PRN Reason: Hypoglycemia Insulin Glargine (Insulin Glargine,Human Rec. Analog 100 Units/Ml 3 Ml Pen) 40 units SUBCUT BEDTIME [facility] [place] Last Admin: 07/09/20 21:30 Dose: 40 unit Documented by: Insulin Human Lispro (Insulin Lispro 100 Unit/Ml 3 Ml Kwikpen) 0 unit SUBCUT QIDACANDBED [facility] [place]; Protocol Last Admin: 07/10/20 07:22 Dose: 4 units Documented by: Insulin Human Lispro (Insulin Lispro 100 Unit/Ml 3 Ml Kwikpen) 20 unit SUBCUT TIDMEALS [facility] [place] Last Admin: 07/10/20 07:23 Dose: 20 units Documented by: Loperamide HCl (Loperamide 2 Mg Cap) 2 mg PO Q6H PRN PRN Reason: Diarrhea Last Admin: 07/10/20 08:09 Dose: 2 mg Documented by: Lorazepam (Lorazepam 2 Mg/Ml Sdv) 0 mg IV ASDIRECTED PRN; Protocol PRN Reason: ETOH WITHDRAWAL Lorazepam (Lorazepam 1 Mg Tab) 0 mg PO ASDIRECTED PRN; Protocol PRN Reason: ETOH WITHDRAWAL Last Admin: 07/10/20 07:22 Dose: 1 mg Documented by: Metoprolol Succinate (Metoprolol Succinate 25 Mg Tab.Er) 25 mg PO DAILY [facility] Last Admin: 07/10/20 08:09 Dose: 25 mg Documented by: Ondansetron HCl (Ondansetron 4 Mg/2 Ml Sdv) 4 mg IV Q4H PRN PRN Reason: Nausea/Vomiting Last Admin: 07/08/20 19:14 Dose: 4 mg Documented by: Polyethylene Glycol (Polyethylene Glycol 3350 Powder 17 Gm Packet) 17 gm PO DAILY PRN PRN Reason: Constipation Sodium Chloride (Sodium Chloride 0.9% 10 Ml Syringe) 10 ml FLUSH ASDIRECTED PRN PRN Reason: Keep Vein Open Discontinued Medications Dextrose/Water (50% Dextrose In Water 50 Ml Syringe) 50 ml IVPUSH ASDIRECTED PRN PRN Reason: Hypoglycemia Dimethicone/Zinc Oxide (Dimethicone 20%/Zinc Oxide 25% 56 Gm Purmela Bottle) Confirm Administered Dose 56 gm TOP .STK-MED ONE Stop: 07/08/20 20:01 Last Admin: 07/08/20 20:08 Dose: Not Given Documented by: Flumazenil (Flumazenil 0.1 Mg/Ml 5 Ml Mdv) 0.2 mg IVPUSH ONETIME PRN PRN Reason: Other Last Admin: 07/08/20 10:16 Dose: 0.2 mg Documented by: Flumazenil (Flumazenil 0.1 Mg/Ml 5 Ml Mdv) 0.2 mg IVPUSH ONETIME PRN PRN Reason: Other Last Admin: 07/08/20 10:47 Dose: 0.2 mg Documented by: Flumazenil (Flumazenil 0.1 Mg/Ml 5 Ml Mdv) 0.2 mg IVPUSH Q20M PRN PRN Reason: Other Stop: 07/09/20 10:49 Last Admin: 07/08/20 17:56 Dose: 0.2 mg Documented by: Glucagon (Glucagon,Human Recombinant 1 Mg Vial) 1 mg IM ASDIRECTED PRN PRN Reason: Hypoglycemia Sodium Chloride (Normal Saline) 1,000 mls @ 1,000 mls/hr IV ASDIRECTED [facility] [place] Last Admin: 07/08/20 09:20 Dose: 1,000 mls/hr Documented by: Sodium Chloride (Normal Saline) 1,000 mls @ 125 mls/hr IV ASDIRECTED [facility] [place] Last Admin: 07/09/20 07:32 Dose: 125 mls/hr Documented by: Multivitamins/Minerals 10 ml/Thiamine HCl 100 mg/ Folic Acid 1 mg/ Magnesium Sulfate 2 gm/ Sodium Chloride 1,015.2 mls @ 100 mls/hr IV ONETIME ONE Stop: 07/09/20 00:09 Last Admin: 07/08/20 14:29 Dose: 100 mls/hr Documented by: Insulin Human Lispro (Insulin Lispro 100 Unit/Ml 3 Ml Kwikpen) 14 unit SUBCUT ONETIME ONE Stop: 07/08/20 22:26 Last Admin: 07/08/20 22:34 Dose: 14 unit Documented by: Insulin Human Regular (Insulin Regular, Human 100 Units/Ml 3 Ml Vial) 8 unit IVPUSH ONETIME ONE Stop: 07/08/20 09:46 Last Admin: 07/08/20 10:01 Dose: 8 unit Documented by: Metoprolol Succinate (Metoprolol Succinate 25 Mg Tab.Er) 25 mg PO ONETIME ONE Stop: 07/09/20 01:19 Last Admin: 07/09/20 01:25 Dose: 25 mg Documented by: Naloxone HCl (Naloxone 0.4 Mg/Ml Sdv) 0.4 mg IVPUSH ONETIME PRN PRN Reason: Other Last Admin: 07/08/20 10:05 Dose: 0.4 mg Documented by: - Exam General: Reports: Alert, Oriented, Cooperative, No Acute Distress Lungs: Reports: Clear to Auscultation, Normal Respiratory Effort Cardiovascular: Reports: Regular Rate, Regular Rhythm, No Murmurs GI/Abdominal Exam: Soft, Non-Tender, No Organomegaly, No Distention
[2020-07-11] MEDS ORDERED: Metoprolol Succinate 25 MG Tab.ER PO SCH
[2020-07-12] MEDS ORDERED: Gabapentin 100 MG Cap PO SCH (14:00)
== END 2020-07-10 12:10 | DRG 896 ==
LOC: JP.ED 09:08 → JP.ICU 10:51
PROVIDERS: ADMIT Hospitalist; ATTEND Hospitalist
DX: F10.129 Alcohol abuse with intoxication, unspecified (principal); J96.01 Acute respiratory failure with hypoxia; J96.02 Acute respiratory failure with hypercapnia; T42.4X1A Poisoning by benzodiazepines, accidental (unintentional), initial encounter; D69.6 Thrombocytopenia, unspecified; F10.20 Alcohol dependence, uncomplicated; E11.65 Type 2 diabetes mellitus with hyperglycemia; K76.9 Liver disease, unspecified; H54.7 Unspecified visual loss; I25.10 Atherosclerotic heart disease of native coronary artery without angina pectoris; E78.00 Pure hypercholesterolemia, unspecified; I10 Essential (primary) hypertension; N18.9 Chronic kidney disease, unspecified; R32 Unspecified urinary incontinence; N93.8 Other specified abnormal uterine and vaginal bleeding; G89.29 Other chronic pain; M54.9 Dorsalgia, unspecified; E11.42 Type 2 diabetes mellitus with diabetic polyneuropathy; F41.9 Anxiety disorder, unspecified; F32.9 Major depressive disorder, single episode, unspecified; F43.10 Post-traumatic stress disorder, unspecified; Z91.013 Allergy to seafood; Z91.018 Allergy to other foods; I25.2 Old myocardial infarction; Z88.0 Allergy status to penicillin; Z88.8 Allergy status to other drugs, medicaments and biological substances; Z79.4 Long term (current) use of insulin; Z79.82 Long term (current) use of aspirin; Z79.899 Other long term (current) drug therapy; Z90.49 Acquired absence of other specified parts of digestive tract; Y90.8 Blood alcohol level of 240 mg/100 ml or more; Z20.822 Contact with and (suspected) exposure to COVID-19
CPT/HCPCS: 36415; 36600; 70450; 70450-26; 80048; 80053; 80305-QW; 80307; 82140; 82803; 82962; 85025; 87493; 99222; 99232; 99238; 99291; A9270-GY; J1815; J1815-GY; J2310; J2405; J3411; J3475; J3490; J7030; U0002

== ENCOUNTER 2020-12-07 13:09 | Observation (INO) | payer MEDICAID ==
--- NOTE | 2020-12-07 14:07 | CT ---
Head wo Cont CLINICAL HISTORY: Obtunded COMPARISON: June 2020 TECHNIQUE: Transverse scans were obtained from the base of the skull through the vertex without IV contrast on a multislice, multidetector CT scanner. Auto dosage reduction and iterative reconstruction techniques employed. FINDINGS: No focal abnormal parenchymal density is identified. There is no mass effect, hemorrhage, or extraaxial collection. The basal cisterns and sulci over the convexities are mild a prominent. The ventricles are normal for age. No fracture identified IMPRESSION: No acute intracranial process Mild atrophic changes
--- NOTE | 2020-12-07 14:28 | EDM.PDOCBH ---
<Shine Beltre - Last Filed: 12/07/20 16:34> ED HPI GENERAL MEDICAL PROBLEM - General Chief Complaint: Drug or Alcohol Abuse Stated Complaint: MEDICAL [facility]IA [facility] Time Seen by Provider: 12/07/20 13:30 Source of Information: Reports: EMS History Limitations: Reports: Altered Mental Status, Intoxication, Physical Impairment - History of Present Illness INITIAL COMMENTS - FREE TEXT/NARRATIVE: 55-year-old female, chronic alcoholic, who apparently has a commitment by the [facility] for inpatient alcohol treatment. A welfare check was done and the patient and she was found unresponsive and extremely intoxicated at home so the ambulance was called. She arrives responsive to voice but minimally, her only verbal respons is "yeah". Onset: Unknown/Unsure - Related Data Allergies Allergy/AdvReac Type Severity Reaction Status Date / Time kiwi Allergy Severe Anaphylactic Verified 12/07/20 13:32 Shock shrimp Allergy Severe Anaphylactic Verified 12/07/20 13:32 Shock niacin Allergy Hives Verified 12/07/20 13:32 Penicillins Allergy Hives Verified 12/07/20 13:32 lisinopril AdvReac Cough Verified 12/07/20 13:32 Home Meds: Home Meds Insulin Aspart [Novolog Flexpen] 20 units SUBCUT TID 04/07/15 [History] Insulin Glarg,Human.Rec.Analog [Lantus Solostar] 40 units SQ BEDTIME 07/09/20 [History] Metoprolol Succinate [Toprol XL] 25 mg PO DAILY #30 tab.er 07/10/20 [Rx] Past Medical History HEENT History: Reports: Impaired Vision Cardiovascular History: Reports: Arrhythmia, CAD, High Cholesterol, Hypertension, [place], Syncope Gastrointestinal History: Reports: Cholelithiasis, Gastritis, GI Bleed, Hemorrhoids, Pancreatitis, Other (See Below) Other Gastrointestinal History: malnutrition Genitourinary History: Reports: Acute Renal Failure, Chronic Renal Insuffiency, Urinary Incontinence, Other (See Below) Other Genitourinary History: decreased kidney function PLY BANDER History: Reports: Dysfunctional Uterine Bleeding, , Other (See Below) Other PLY BANDER History: Past heavy vaginal bleeding Musculoskeletal History: Reports: Back Pain, Chronic, Fracture Other Musculoskeletal History: spinal infection. orbital fracture Neurological History: Reports: Concussion, Neuropathy, Diabetic, Other (See Below) Other Neuro History: chronic fatigue syndrom Psychiatric History: Reports: Addiction, Anxiety, Depression, PTSD Endocrine/Metabolic History: Reports: Diabetes, Type II Hematologic History: Reports: Blood Transfusion(s) Other Hematologic History: unable to obtain Immunologic History: Reports: Other (See Below) Other Immunologic History: unable to obtain Oncologic (Cancer) History: Reports: Other (See Below) Other Oncologic History: unable to obtain Dermatologic History: Reports: Psoriasis - Infectious Disease History Infectious Disease History: Reports: MRSA Other Infectious Disease History: unable to obtain - Past Surgical History HEENT Surgical History: Reports: None Cardiovascular Surgical History: Reports: None GI Surgical History: Reports: Appendectomy, Cholecystectomy Social & Family History - Family History Family Medical History: Unobtainable - Tobacco Use Tobacco Use Status *Q: Unknown Ever Used Tobacco - Caffeine Use Caffeine Use: Reports: Soda Other Caffeine Use: unknown ED ROS GENERAL - Review of Systems Review Of Systems: See Below Reason Not Obtained: Patient is too intoxicated to get review of systems ED EXAM, BEHAVIORAL HEALTH - Physical Exam Exam: See Below Exam Limited By: Intoxication General Appearance: Lethargic Eye Exam: Right Eye: Periorbital Changes (Significant right periorbital bruisin g), Bilateral Eye: PERRL Head: Other (Left periorbital bruising, ecchymosis) Respiratory/Chest: Lungs Clear Cardiovascular: Regular Rate, Rhythm GI/Abdominal: Normal Bowel Sounds, Non-Tender Extremities: Other (Somewhat cachectic, no peripheral edema) Neurological: Inattentive, Slow Response to Commands Psychiatric: Incoherent, Inattentive, Uncooperative Skin Exam: Warm, Dry COURSE, BEHAVIORAL HEALTH COMP - Course Re-Assessment/Re-Exam: EtOH is 0.358. Patient remained sedated, the rest of her labs are actually reassuring. A banana bag was hung and hopefully the patient will start to awaken enough to go to [place] for detox. CT of the head was done which was negative. Departure - Departure Disposition: Admitted As Inpatient 67 Clinical Impression: Diabetes mellitus type 2, insulin dependent, Alcoholic gastritis with bleeding Alcohol intoxication Qualifiers: Complication of substance-induced condition: with unspecified complication Qualified Code(s): F10.929 - Alcohol use, unspecified with intoxication, unspecified Alcoholic hepatitis Qualifiers: Ascites presence: without ascites Qualified Code(s): K70.10 - Alcoholic hepatitis without ascites Alcohol dependence Qualifiers: Substance use status: uncomplicated Qualified Code(s): F10.20 - Alcohol dependence, uncomplicated Hematemesis Qualifiers: Nausea presence: with nausea Qualified Code(s): K92.0 - Hematemesis - Discharge Information Referrals: PCP,None [Primary Care Provider] - Forms: ED Department Discharge Sepsis Event Note (ED) - Evaluation Sepsis Screening Result: No Definite Risk <James Carrera - Last Filed: 12/08/20 07:17> COURSE, BEHAVIORAL HEALTH COMP - Course Vital Signs: Last Vital Signs Temp 36.7 C 12/08/20 03:39 Pulse 116 H 12/08/20 06:26 Resp 14 12/08/20 06:26 BP 129/76 12/08/20 06:26 Pulse Ox 100 12/08/20 06:26 Orders, Labs, Meds: Active Orders 24 hr Category Date Time Status PATIENT RETYPE [BBK] Stat Lab 12/08/20 04:07 Results TYPE AND SCREEN [BBK] Stat Lab 12/08/20 04:07 Results Octreotide [SandoSTATIN] 500 mcg Med 12/08/20 03:45 Active Sodium Chloride 0.9% [Normal Saline] 497.5 ml IV Q10H Pantoprazole [ProTONIX IV] 80 mg Med 12/08/20 07:00 Active Sodium Chloride 0.9% [Normal Saline] 100 ml IV Q10H Medication Orders Octreotide Acetate 500 mcg/ (Sodium Chloride) 500 mls @ 50 mls/hr IV Q10H [facility] Last Admin: 12/08/20 04:12 Dose: 50 mcg/hr, 50 mls/hr Documented by: VALERIE Pantoprazole Sodium 80 mg/ (Sodium Chloride) 100 mls @ 10 mls/hr IV Q10H [facility] Laboratory Tests 12/07/20 12/07/20 12/07/20 Range/Units 13:17 13:17 13:17 WBC 7.2 (4.5-11.0) K/uL RBC 4.02 (3.30-5.50) M/uL Hgb 11.0 L (12.0-15.0) g/dL Hct 33.2 L (36.0-48.0) % MCV 83 (80-98) fL MCH 27 (27-31) pg MCHC 33 (32-36) % Plt Count 204 (150-400) K/uL Neut % (Auto) 66.6 H (36-66) % Lymph % (Auto) 24.2 (24-44) % [place] % (Auto) 6.0 (2-6) % Eos % (Auto) 2.8 (2-4) % Baso % (Auto) 0.4 (0-1) % PT (9.5-12.0) sec INR (0.80-1.20) APTT (27.0-36.0) sec Sodium 138 L (140-148) mmol/L Potassium 3.5 L (3.6-5.2) mmol/L Chloride 98 L (100-108) mmol/L Carbon Dioxide 27 (21-32) mmol/L Anion Gap 16.5 H (5.0-14.0) mmol/L BUN 3 L D (7-18) mg/dL Creatinine 1.0 (0.6-1.0) mg/dL Est Cr Clr Drug Dosing 57.87 mL/min Estimated GFR (MDRD) 58 L (>60) Glucose 221 H (74-106) mg/dL Calcium 8.0 L (8.5-10.1) mg/dL Total Bilirubin (0.2-1.0) mg/dL AST (15-37) U/L ALT (12-78) U/L Alkaline Phosphatase (46-116) U/L Total Protein (6.4-8.2) g/dL Albumin (3.4-5.0) g/dL Globulin (2.3-3.5) g/dL Albumin/Globulin Ratio (1.2-2.2) Urine Color (YELLOW) Urine Appearance (CLEAR) Urine pH (5.0-8.0) Ur Specific [place] (1.008-1.030) Urine Protein (NEGATIVE) mg/dL Urine Glucose (UA) (NEGATIVE) mg/dL Urine Ketones (NEGATIVE) mg/dL Urine Occult Blood (NEGATIVE) Urine Nitrite (NEGATIVE) Urine Bilirubin (NEGATIVE) Urine Urobilinogen (0.2-1.0) EU/dL Ur Leukocyte Esterase (NEGATIVE) Urine RBC (0-5) Urine WBC (0-5) Ur Epithelial Cells Amorphous Sediment Urine Bacteria Urine Mucus Urine Opiates Screen (NEGATIVE) Ur Oxycodone Screen (NEGATIVE) Urine Methadone Screen (NEGATIVE) Ur Propoxyphene Screen (NEGATIVE) Acetaminophen 0.0 L (10.0-30.0) ug/mL Ur Barbiturates Screen (NEGATIVE) Ur Tricyclics Screen (NEGATIVE) Ur Phencyclidine Scrn (NEGATIVE) Ur Amphetamine Screen (NEGATIVE) U Methamphetamines Scrn (NEGATIVE) Urine MDMA Screen (NEGATIVE) U Benzodiazepines Scrn (NEGATIVE) U Cocaine Metab Screen (NEGATIVE) U Marijuana (THC) Screen (NEGATIVE) Ethyl Alcohol 358 mg/dL SARS CoV-2 RNA Rapid [place] Blood Type Gel Antibody Screen 12/07/20 12/07/20 12/08/20 Range/Units 13:17 13:17 03:42 WBC 7.8 (4.5-11.0) K/uL RBC 3.97 (3.30-5.50) M/uL Hgb 10.8 L (12.0-15.0) g/dL Hct 32.7 L (36.0-48.0) % MCV 82 (80-98) fL MCH 27 (27-31) pg MCHC 33 (32-36) % Plt Count 159 (150-400) K/uL Neut % (Auto) 80.3 H (36-66) % Lymph % (Auto) 13.0 L (24-44) % [place] % (Auto) 5.1 (2-6) % Eos % (Auto) 1.5 L (2-4) % Baso % (Auto) 0.1 (0-1) % PT (9.5-12.0) sec INR (0.80-1.20) APTT (27.0-36.0) sec Sodium (140-148) mmol/L Potassium (3.6-5.2) mmol/L Chloride (100-108) mmol/L Carbon Dioxide (21-32) mmol/L Anion Gap (5.0-14.0) mmol/L BUN (7-18) mg/dL Creatinine (0.6-1.0) mg/dL Est Cr Clr Drug Dosing mL/min Estimated GFR (MDRD) (>60) Glucose (74-106) mg/dL Calcium (8.5-10.1) mg/dL Total Bilirubin (0.2-1.0) mg/dL AST (15-37) U/L ALT (12-78) U/L Alkaline Phosphatase (46-116) U/L Total Protein (6.4-8.2) g/dL Albumin (3.4-5.0) g/dL Globulin (2.3-3.5) g/dL Albumin/Globulin Ratio (1.2-2.2) Urine Color Yellow (YELLOW) Urine Appearance Clear (CLEAR) Urine pH 6.0 (5.0-8.0) Ur Specific [place] 1.010 (1.008-1.030) Urine Protein Negative (NEGATIVE) mg/dL Urine Glucose (UA) Negative (NEGATIVE) mg/dL Urine Ketones Negative (NEGATIVE) mg/dL Urine Occult Blood Negative (NEGATIVE) Urine Nitrite Negative (NEGATIVE) Urine Bilirubin Negative (NEGATIVE) Urine Urobilinogen 0.2 (0.2-1.0) EU/dL Ur Leukocyte Esterase Negative (NEGATIVE) Urine RBC 0-5 (0-5) Urine WBC 0-5 (0-5) Ur Epithelial Cells Few Amorphous Sediment Few Urine Bacteria Rare Urine Mucus Rare Urine Opiates Screen Negative (NEGATIVE) Ur Oxycodone Screen Negative (NEGATIVE) Urine Methadone Screen Negative (NEGATIVE) Ur Propoxyphene Screen Negative (NEGATIVE) Acetaminophen (10.0-30.0) ug/mL Ur Barbiturates Screen Negative (NEGATIVE) Ur Tricyclics Screen Negative (NEGATIVE) Ur Phencyclidine Scrn Negative (NEGATIVE) Ur Amphetamine Screen Negative (NEGATIVE) U Methamphetamines Scrn Negative (NEGATIVE) Urine MDMA Screen Negative (NEGATIVE) U Benzodiazepines Scrn Negative (NEGATIVE) U Cocaine Metab Screen Negative (NEGATIVE) U Marijuana (THC) Screen Presumptive positive H (NEGATIVE) Ethyl Alcohol mg/dL SARS CoV-2 RNA Rapid [place] Blood Type Gel Antibody Screen 12/08/20 12/08/20 12/08/20 Range/Units 03:42 03:42 03:42 WBC (4.5-11.0) K/uL RBC (3.30-5.50) M/uL Hgb (12.0-15.0) g/dL Hct (36.0-48.0) % MCV (80-98) fL MCH (27-31) pg MCHC (32-36) % Plt Count (150-400) K/uL Neut % (Auto) (36-66) % Lymph % (Auto) (24-44) % [place] % (Auto) (2-6) % Eos % (Auto) (2-4) % Baso % (Auto) (0-1) % PT 13.0 H (9.5-12.0) sec INR 1.20 (0.80-1.20) APTT 26.0 L (27.0-36.0) sec Sodium 142 (140-148) mmol/L Potassium 3.6 (3.6-5.2) mmol/L Chloride 101 (100-108) mmol/L Carbon Dioxide 25 (21-32) mmol/L Anion Gap 15.6 H (5.0-14.0) mmol/L BUN 3 L (7-18) mg/dL Creatinine 0.9 (0.6-1.0) mg/dL Est Cr Clr Drug Dosing 64.30 mL/min Estimated GFR (MDRD) > 60 (>60) Glucose 190 H (74-106) mg/dL Calcium 8.3 L (8.5-10.1) mg/dL Total Bilirubin 1.6 H D (0.2-1.0) mg/dL AST 75 H (15-37) U/L ALT 20 (12-78) U/L Alkaline Phosphatase 526 H (46-116) U/L Total Protein 7.5 (6.4-8.2) g/dL Albumin 2.5 L (3.4-5.0) g/dL Globulin 5.0 H (2.3-3.5) g/dL Albumin/Globulin Ratio 0.5 L (1.2-2.2) Urine Color (YELLOW) Urine Appearance (CLEAR) Urine pH (5.0-8.0) Ur Specific [place] (1.008-1.030) Urine Protein (NEGATIVE) mg/dL Urine Glucose (UA) (NEGATIVE) mg/dL Urine Ketones (NEGATIVE) mg/dL Urine Occult Blood (NEGATIVE) Urine Nitrite (NEGATIVE) Urine Bilirubin (NEGATIVE) Urine Urobilinogen (0.2-1.0) EU/dL Ur Leukocyte Esterase (NEGATIVE) Urine RBC (0-5) Urine WBC (0-5) Ur Epithelial Cells Amorphous Sediment Urine Bacteria Urine Mucus Urine Opiates Screen (NEGATIVE) Ur Oxycodone Screen (NEGATIVE) Urine Methadone Screen (NEGATIVE) Ur Propoxyphene Screen (NEGATIVE) Acetaminophen (10.0-30.0) ug/mL Ur Barbiturates Screen (NEGATIVE) Ur Tricyclics Screen (NEGATIVE) Ur Phencyclidine Scrn (NEGATIVE) Ur Amphetamine Screen (NEGATIVE) U Methamphetamines Scrn (NEGATIVE) Urine MDMA Screen (NEGATIVE) U Benzodiazepines Scrn (NEGATIVE) U Cocaine Metab Screen (NEGATIVE) U Marijuana (THC) Screen (NEGATIVE) Ethyl Alcohol 99 mg/dL SARS CoV-2 RNA Rapid [place] Blood Type Gel Antibody Screen 12/08/20 12/08/20 Range/Units 04:07 04:26 WBC (4.5-11.0) K/uL RBC (3.30-5.50) M/uL Hgb (12.0-15.0) g/dL Hct (36.0-48.0) % MCV (80-98) fL MCH (27-31) pg MCHC (32-36) % Plt Count (150-400) K/uL Neut % (Auto) (36-66) % Lymph % (Auto) (24-44) % [place] % (Auto) (2-6) % Eos % (Auto) (2-4) % Baso % (Auto) (0-1) % PT (9.5-12.0) sec INR (0.80-1.20) APTT (27.0-36.0) sec Sodium (140-148) mmol/L Potassium (3.6-5.2) mmol/L Chloride (100-108) mmol/L Carbon Dioxide (21-32) mmol/L Anion Gap (5.0-14.0) mmol/L BUN (7-18) mg/dL Creatinine (0.6-1.0) mg/dL Est Cr Clr Drug Dosing mL/min Estimated GFR (MDRD) (>60) Glucose (74-106) mg/dL Calcium (8.5-10.1) mg/dL Total Bilirubin (0.2-1.0) mg/dL AST (15-37) U/L ALT (12-78) U/L Alkaline Phosphatase (46-116) U/L Total Protein (6.4-8.2) g/dL Albumin (3.4-5.0) g/dL Globulin (2.3-3.5) g/dL Albumin/Globulin Ratio (1.2-2.2) Urine Color (YELLOW) Urine Appearance (CLEAR) Urine pH (5.0-8.0) Ur Specific [place] (1.008-1.030) Urine Protein (NEGATIVE) mg/dL Urine Glucose (UA) (NEGATIVE) mg/dL Urine Ketones (NEGATIVE) mg/dL Urine Occult Blood (NEGATIVE) Urine Nitrite (NEGATIVE) Urine Bilirubin (NEGATIVE) Urine Urobilinogen (0.2-1.0) EU/dL Ur Leukocyte Esterase (NEGATIVE) Urine RBC (0-5) Urine WBC (0-5) Ur Epithelial Cells Amorphous Sediment Urine Bacteria Urine Mucus Urine Opiates Screen (NEGATIVE) Ur Oxycodone Screen (NEGATIVE) Urine Methadone Screen (NEGATIVE) Ur Propoxyphene Screen (NEGATIVE) Acetaminophen (10.0-30.0) ug/mL Ur Barbiturates Screen (NEGATIVE) Ur Tricyclics Screen (NEGATIVE) Ur Phencyclidine Scrn (NEGATIVE) Ur Amphetamine Screen (NEGATIVE) U Methamphetamines Scrn (NEGATIVE) Urine MDMA Screen (NEGATIVE) U Benzodiazepines Scrn (NEGATIVE) U Cocaine Metab Screen (NEGATIVE) U Marijuana (THC) Screen (NEGATIVE) Ethyl Alcohol mg/dL SARS CoV-2 RNA Rapid [place] Negative Blood Type O POSITIVE Gel Antibody Screen Negative Medications Generic Name Dose Route Start Last Admin Trade Name Freq PRN Reason Stop Dose Admin Octreotide Acetate 500 mcg/ 500 mls @ 50 mls/hr 12/08/20 03:45 12/08/20 04:12 Sodium Chloride IV 50 mcg/hr Q10H KATHRINE 50 mls/hr Administration 50 MCG/HR Pantoprazole Sodium 80 mg/ 100 mls @ 10 mls/hr 12/08/20 07:00 Sodium Chloride IV Q10H KATHRINE Discontinued Medications Generic Name Dose Route Start Last Admin Trade Name Freq PRN Reason Stop Dose Admin Droperidol 1.25 mg 12/08/20 03:21 12/08/20 03:27 Droperidol 5 Mg/2 Ml Sdv IVPUSH 12/08/20 03:22 1.25 mg ONETIME ONE Administration Multivitamins/Minerals 10 ml/ 1,017.2 mls @ 500 mls/hr 12/07/20 14:45 12/07/20 15:30 Thiamine HCl 100 mg/ Folic IV 12/07/20 16:47 500 mls/hr Acid 1 mg/ Magnesium Sulfate 3 ASDIRECTED ONE Administration gm/ Sodium Chloride Ondansetron HCl 8 mg 12/08/20 00:35 12/08/20 00:40 Ondansetron 4 Mg/2 Ml Sdv IVPUSH 12/08/20 00:36 8 mg ONETIME ONE Administration Pantoprazole Sodium 40 mg 12/08/20 03:42 12/08/20 04:18 Pantoprazole 40 Mg Vial IVPUSH 12/08/20 03:43 40 mg ONETIME ONE Administration Re-Assessment/Re-Exam: 12/08/2020 03:20 the patient again is starting to vomit. This time she has several episodes of hematemesis producing about 50 cc of bright red blood. She does have a history for bleeding varices in the past due to her cirrhosis and heavy drinking. I repeated labs including CBC, PT, PTT, comprehensive metabolic panel, and ethanol level. The patient has been typed and screened. We initiated therapy with Protonix 40 mg IV push and an octreotide drip. She will likely need transfer to an inpatient facility for possible bleeding varices. She remains tachycardic with a pressure of 151/95 and a heart rate of 106. With the hematemesis she will likely need to be transferred to [facility] for GI bleeding. 12/08/2020 06:10 the patient has been quiesced sent with the hematemesis for the last hour and a half. Labs were repeated showing no significant change in her CBC. Her comprehensive metabolic panel shows a sodium 142, potassium 3.6, chloride of 101 with a bicarbonate of 25, BUN of 3 with a creatinine of 0.9 and a glucose of 190. Calcium is 8.3, AST is 75, ALT is 20, alkaline phosphatase is 525. Total bili is elevated 1.6. Ethanol is 99. There is mild elevation of the PT at 13.0 with an INR of 1.2. PTT is mildly elevated at 26.0. The patient remains on an octreotide drip which I believe we can probably discontinue at this time. We will see if she has any reemergence of nausea, vomiting, and hematemesis. Care of the patient be turned over to Dr. De Los Santos at 0700 hrs. while awaiting for the patient to wake up at which time she is suitable for discharge to [place] for detox. 12/08/2020 06:35 within 5 minutes of discontinuing the octreotide drip, the patient again started having retching. The octreotide drip was restarted and an accompanying pantoprazole drip was started. I have discussed the case with the hospitalist, Dr Ott who will notify Dr. Metzger of the pending admission when she comes on this morning at 8 AM. We have arranged for an ICU bed for the patient here to continue treatment of acute alcoholic gastritis. Once she is more stable, the she can be transferred under her civil commitment to [place]. We will update them on the status. Departure - Departure Time of Disposition: 08:00 Sepsis Event Note (ED) - Focused Exam Vital Signs: Vital Signs Temp Pulse Resp BP Pulse Ox 12/08/20 06:26 116 H 14 129/76 100 12/08/20 05:41 113 H 13 123/75 100 12/08/20 05:06 108 H 15 128/76 100 12/08/20 04:41 113 H 15 129/81 100 12/08/20 04:13 110 H 16 96 12/08/20 04:10 114 H 18 132/76 96 12/08/20 03:39 36.7 C 113 H 21 H 124/82 99 12/08/20 02:12 100 15 122/71 12/08/20 00:43 103 H 15 136/72 12/07/20 22:12 96 12 114/72 12/07/20 20:12 100 14 113/68 - My Orders Last 24 Hours: My Active Orders 12/08/20 03:45 Octreotide [SandoSTATIN] 500 mcg Sodium Chloride 0.9% [Normal Saline] 497.5 ml IV Q10H 12/08/20 04:07 PATIENT RETYPE [BBK] Stat TYPE AND SCREEN [BBK] Stat 12/08/20 07:00 Pantoprazole [ProTONIX IV] 80 mg Sodium Chloride 0.9% [Normal Saline] 100 ml IV Q10H - Assessment/Plan Last 24 Hours: My Active Orders 12/08/20 03:45 Octreotide [SandoSTATIN] 500 mcg Sodium Chloride 0.9% [Normal Saline] 497.5 ml IV Q10H 12/08/20 04:07 PATIENT RETYPE [BBK] Stat TYPE AND SCREEN [BBK] Stat 12/08/20 07:00 Pantoprazole [ProTONIX IV] 80 mg Sodium Chloride 0.9% [Normal Saline] 100 ml IV Q10H
[2020-12-07] MEDS ORDERED: MVI, Adult with Vitamin K 10 ML, Thiamine 100 MG, Folic Acid 1 MG, Magnesium Sulfate 3 ... IV SCH ×5 (14:30)
[2020-12-07] MEDS ORDERED: MVI, Adult with Vitamin K 10 ML, Thiamine 100 MG, Folic Acid 1 MG, Magnesium Sulfate 3 ... IV ONE ×5 (14:45)
[2020-12-08] MEDS ORDERED: Ondansetron 4 MG/2 ML SDV IVPUSH ONE (00:35)
[2020-12-08] MEDS ORDERED: Pantoprazole 40 MG Vial IVPUSH ONE (03:42)
[2020-12-08] MEDS ORDERED: Octreotide 500 MCG in Sodium Chloride 0.9% 497.5 ML IV SCH ×2 (03:45→14:15)
[2020-12-08] MEDS ORDERED: Pantoprazole 80 MG in Sodium Chloride 0.9% 100 ML IV SCH (07:00)
[2020-12-08] MEDS: Pantoprazole 80 MG in Sodium Chloride 0.9% 100 ML IV SCH ×2 (07:33→18:22)
[2020-12-08] MEDS ORDERED: Prochlorperazine 10 MG/2 ML SDV IVPUSH ONE (08:37)
[2020-12-08] MEDS ORDERED: diphenhydrAMINE 50 MG/ML SDV IVPUSH ONE (08:37)
[2020-12-08] MEDS ORDERED: LORazepam 2 MG/ML SDV IV SCH (10:30)
[2020-12-08] MEDS ORDERED: Labetalol 20 MG/4 ML Syringe IVPUSH ONE (10:33)
[2020-12-08] MEDS ORDERED: 50% Dextrose in Water 50 ML Syringe IV PRN (10:36)
[2020-12-08] MEDS ORDERED: Glucagon,Human Recombinant 1 MG Vial IM PRN (10:37)
[2020-12-08] MEDS ORDERED: Labetalol 20 MG/4 ML Syringe IVPUSH PRN (11:03)
[2020-12-08] MEDS: Folic Acid 1 MG Tab PO SCH (11:03)
[2020-12-08] MEDS: Insulin Lispro 100 Unit/ML 3 ML KwikPen SUBCUT SCH ×3 (11:21→20:46)
[2020-12-08] MEDS ORDERED: Propofol 200 MG/20 ML SDV ONE ×2 (11:23→12:15)
[2020-12-08] MEDS ORDERED: Sodium Chloride 0.9% 10 ML ONE (12:09)
[2020-12-08] MEDS: LORazepam 1 MG Tab PO SCH (19:38)
--- NOTE | 2020-12-08 20:09 | PCM.HP.2 ---
H&P History of Present Illness - General Date of Service: 12/08/20 Admit Problem/Dx: Admission Diagnosis/Problem Admission Diagnosis/Problem Hematemesis with nausea Source of Information: Patient, EMS Notes Reviewed, Provider (ED physician and nurse) History Limitations: Reports: Altered Mental Status, Intoxication - History of Present Illness Initial Comments - Free Text/Narative: Ms. Santiago is a 55-year-old female who was brought in by EMS after being found unresponsive during a welfare check after being committed by the formerly [facility]. She has a history of alcohol abuse and dependency, benzodiazepine abuse, and suicidal attempt/ideation in the past. She was lethargic during the interview. She had bruising around the left orbit, when asked about this she stated that she fell a week ago and was flown to [place] for this. This was not done at our hospital and I do not have records for this. The bruising does appear to be within that timeframe possibly. She states that she does have a history of alcohol withdrawal and delirium tremens in the past. She was brought to the emergency department to detox and during the night began to have hematemesis around 3 AM. She had 2 episodes of hematemesis and continued retching after that. She had been started on octreotide and Protonix drip. Her alcohol level on arrival was 358 mg/dL and she was positive for THC. Upon admission she was taken for endoscopy and found to have esophageal varices that were banded during the procedure. Feet Pain Score (Numeric/FACES): 8 - Related Data Allergies/Adverse Reactions: Allergies Allergy/AdvReac Type Severity Reaction Status Date / Time kiwi Allergy Severe Anaphylactic Verified 12/07/20 13:32 Shock shrimp Allergy Severe Anaphylactic Verified 12/07/20 13:32 Shock niacin Allergy Hives Verified 12/07/20 13:32 Penicillins Allergy Hives Verified 12/07/20 13:32 lisinopril AdvReac Cough Verified 12/07/20 13:32 Home Medications: Home Meds Insulin Aspart [Novolog Flexpen] 20 units SUBCUT TID 04/07/15 [History] Insulin Glarg,Human.Rec.Analog [Lantus Solostar] 40 units SQ BEDTIME 07/09/20 [History] Metoprolol Succinate [Toprol XL] 25 mg PO DAILY #30 tab.er 03/21/21 [Rx] Past Medical History HEENT History: Reports: Impaired Vision Cardiovascular History: Reports: Arrhythmia, CAD, High Cholesterol, Hypertension, DC, Syncope Gastrointestinal History: Reports: Cholelithiasis, Gastritis, GI Bleed, Hemorrhoids, Pancreatitis, Other (See Below) Other Gastrointestinal History: malnutrition Genitourinary History: Reports: Acute Renal Failure, Chronic Renal Insuffiency, Urinary Incontinence, Other (See Below) Other Genitourinary History: decreased kidney function [employer] History: Reports: Dysfunctional Uterine Bleeding, , Other (See Below) Other OB/BYN History: Past heavy vaginal bleeding Musculoskeletal History: Reports: Back Pain, Chronic, Fracture Other Musculoskeletal History: spinal infection. orbital fracture Neurological History: Reports: Concussion, Neuropathy, Diabetic, Other (See Below) Other Neuro History: chronic fatigue syndrom Psychiatric History: Reports: Addiction, Anxiety, Depression, PTSD Endocrine/Metabolic History: Reports: Diabetes, Type II Hematologic History: Reports: Blood Transfusion(s) Other Hematologic History: unable to obtain Immunologic History: Reports: Other (See Below) Other Immunologic History: unable to obtain Oncologic (Cancer) History: Reports: Other (See Below) Other Oncologic History: unable to obtain Dermatologic History: Reports: Psoriasis - Infectious Disease History Infectious Disease History: Reports: MRSA Other Infectious Disease History: unable to obtain - Past Surgical History GI Surgical History: Reports: Appendectomy, Cholecystectomy Social & Family History - Family History Family Medical History: Unobtainable - Tobacco Use Tobacco Use Status *Q: Current Every Day Tobacco User Years of Tobacco use: 36 Packs/Tins Daily: 0.5 - Caffeine Use Caffeine Use: Reports: None Other Caffeine Use: unknown - Recreational Drug Use Recreational Drug Use: No H&P Review of Systems - Review of Systems: Review Of Systems: Unable To Obtain (Secondary to altered mental status, patient was able to answer some questions) Reason Not Obtained: Intoxication and lethargy at the time of interview Gastrointestinal: Reports: Abdominal Pain, Hematemesis, Nausea, Vomiting Neurological: Reports: Tremors, Other (History of delirium tremens) Exam - Exam Exam: See Below - Vital Signs Vital Signs: Last Vital Signs Temp 98.6 F 12/08/20 19:56 Pulse 97 12/08/20 12:41 Resp 17 12/08/20 19:56 BP 115/60 12/08/20 19:56 Pulse Ox 97 12/08/20 19:56 Weight: 136 lb 6.4 oz - Exam General: Lethargic HEENT: PERRLA, Conjunctiva Clear, EOMI, Pupils Equal, Pupils Reactive, Other (Dry oral mucosa) Neck: Supple, Trachea Midline Lungs: Clear to Auscultation, Normal Respiratory Effort Cardiovascular: Regular Rhythm, Tachycardia GI/Abdominal Exam: Normal Bowel Sounds, Guarding, Tender (Right upper quadrant) Extremities: Non-Tender, No Pedal Edema, Slow Capillary Refill Skin: Warm, Dry, Intact, Ecchymosis (Around the left orbit) Neurological: Cranial Nerves Intact. No: Focal Deficit Neuro Extensive - Motor, Sensory, Reflexes: CN II-XII Intact Psychiatric: Withdrawal Symptoms (Tremor of the hands) - Patient Data Lab Results Last 24 hrs: Laboratory Results - last 24 hr 12/08/20 12/08/20 12/08/20 Range/Units 03:42 03:42 03:42 WBC 7.8 (4.5-11.0) K/uL RBC 3.97 (3.30-5.50) M/uL Hgb 10.8 L (12.0-15.0) g/dL Hct 32.7 L (36.0-48.0) % MCV 82 (80-98) fL MCH 27 (27-31) pg MCHC 33 (32-36) % Plt Count 159 (150-400) K/uL Neut % (Auto) 80.3 H (36-66) % Lymph % (Auto) 13.0 L (24-44) % Kaufman % (Auto) 5.1 (2-6) % Eos % (Auto) 1.5 L (2-4) % Baso % (Auto) 0.1 (0-1) % PT 13.0 H (9.5-12.0) sec INR 1.20 (0.80-1.20) APTT 26.0 L (27.0-36.0) sec Sodium 142 (140-148) mmol/L Potassium 3.6 (3.6-5.2) mmol/L Chloride 101 (100-108) mmol/L Carbon Dioxide 25 (21-32) mmol/L Anion Gap 15.6 H (5.0-14.0) mmol/L BUN 3 L (7-18) mg/dL Creatinine 0.9 (0.6-1.0) mg/dL Est Cr Clr Drug Dosing 64.30 mL/min Estimated GFR (MDRD) > 60 (>60) Glucose 190 H (74-106) mg/dL POC Glucose (74-106) mg/dL Calcium 8.3 L (8.5-10.1) mg/dL Total Bilirubin 1.6 H D (0.2-1.0) mg/dL AST 75 H (15-37) U/L ALT 20 (12-78) U/L Alkaline Phosphatase 526 H (46-116) U/L Total Protein 7.5 (6.4-8.2) g/dL Albumin 2.5 L (3.4-5.0) g/dL Globulin 5.0 H (2.3-3.5) g/dL Albumin/Globulin Ratio 0.5 L (1.2-2.2) Ethyl Alcohol mg/dL SARS CoV-2 RNA Rapid NEVILLE Blood Type Gel Antibody Screen 12/08/20 12/08/20 12/08/20 Range/Units 03:42 04:07 04:26 WBC (4.5-11.0) K/uL RBC (3.30-5.50) M/uL Hgb (12.0-15.0) g/dL Hct (36.0-48.0) % MCV (80-98) fL MCH (27-31) pg MCHC (32-36) % Plt Count (150-400) K/uL Neut % (Auto) (36-66) % Lymph % (Auto) (24-44) % Kaufman % (Auto) (2-6) % Eos % (Auto) (2-4) % Baso % (Auto) (0-1) % PT (9.5-12.0) sec INR (0.80-1.20) APTT (27.0-36.0) sec Sodium (140-148) mmol/L Potassium (3.6-5.2) mmol/L Chloride (100-108) mmol/L Carbon Dioxide (21-32) mmol/L Anion Gap (5.0-14.0) mmol/L BUN (7-18) mg/dL Creatinine (0.6-1.0) mg/dL Est Cr Clr Drug Dosing mL/min Estimated GFR (MDRD) (>60) Glucose (74-106) mg/dL POC Glucose (74-106) mg/dL Calcium (8.5-10.1) mg/dL Total Bilirubin (0.2-1.0) mg/dL AST (15-37) U/L ALT (12-78) U/L Alkaline Phosphatase (46-116) U/L Total Protein (6.4-8.2) g/dL Albumin (3.4-5.0) g/dL Globulin (2.3-3.5) g/dL Albumin/Globulin Ratio (1.2-2.2) Ethyl Alcohol 99 mg/dL SARS CoV-2 RNA Rapid NEVILLE Negative Blood Type O POSITIVE Gel Antibody Screen Negative 12/08/20 12/08/20 Range/Units 11:11 17:15 WBC (4.5-11.0) K/uL RBC (3.30-5.50) M/uL Hgb (12.0-15.0) g/dL Hct (36.0-48.0) % MCV (80-98) fL MCH (27-31) pg MCHC (32-36) % Plt Count (150-400) K/uL Neut % (Auto) (36-66) % Lymph % (Auto) (24-44) % Kaufman % (Auto) (2-6) % Eos % (Auto) (2-4) % Baso % (Auto) (0-1) % PT (9.5-12.0) sec INR (0.80-1.20) APTT (27.0-36.0) sec Sodium (140-148) mmol/L Potassium (3.6-5.2) mmol/L Chloride (100-108) mmol/L Carbon Dioxide (21-32) mmol/L Anion Gap (5.0-14.0) mmol/L BUN (7-18) mg/dL Creatinine (0.6-1.0) mg/dL Est Cr Clr Drug Dosing mL/min Estimated GFR (MDRD) (>60) Glucose (74-106) mg/dL POC Glucose 206 H 216 H (74-106) mg/dL Calcium (8.5-10.1) mg/dL Total Bilirubin (0.2-1.0) mg/dL AST (15-37) U/L ALT (12-78) U/L Alkaline Phosphatase (46-116) U/L Total Protein (6.4-8.2) g/dL Albumin (3.4-5.0) g/dL Globulin (2.3-3.5) g/dL Albumin/Globulin Ratio (1.2-2.2) Ethyl Alcohol mg/dL SARS CoV-2 RNA Rapid NEVILLE Blood Type Gel Antibody Screen Result Diagrams: 12/08/20 03:42 12/08/20 03:42 Sepsis Event Note - Evaluation Sepsis Screening Result: No Definite Risk - Focused Exam Vital Signs: Vital Signs Temp Pulse Resp BP Pulse Ox 12/08/20 19:56 98.6 F 17 115/60 97 12/08/20 18:00 19 123/61 95 12/08/20 17:00 95.5 F L 17 125/62 97 12/08/20 16:00 18 116/57 L 97 12/08/20 15:00 20 126/69 97 12/08/20 14:30 97.5 F 15 123/55 L 99 12/08/20 14:00 18 112/56 L 100 12/08/20 13:45 12 113/65 100 12/08/20 13:30 22 H 97/58 L 99 12/08/20 13:15 22 H 120/64 98 12/08/20 13:00 23 H 112/60 99 12/08/20 12:53 97.6 F 19 111/64 96 12/08/20 12:41 96.8 F L 97 22 H 104/60 96 12/08/20 12:36 102 H 22 H 79/46 L 91 L 12/08/20 12:30 95 20 65/39 L 97 12/08/20 12:25 93 20 64/39 L 96 12/08/20 12:20 97.0 F 95 19 63/38 L 95 12/08/20 11:00 108 H 20 132/72 96 12/08/20 10:01 96.5 F L 110 H 18 139/71 95 - Problem List (1) Esophageal varices with bleeding SNOMED Code(s): 65622510, 65751683 ICD Code: I85.01 - ESOPHAGEAL VARICES WITH BLEEDING Status: Acute Current Visit: Yes (2) Alcohol dependence SNOMED Code(s): 81377865 ICD Code: F10.20 - ALCOHOL DEPENDENCE, UNCOMPLICATED Status: Acute Current Visit: Yes Qualifiers: Substance use status: in withdrawal Qualified Code(s): F10.20 - Alcohol dependence, uncomplicated (3) Alcoholic hepatitis SNOMED Code(s): 856431385 ICD Code: K70.10 - ALCOHOLIC HEPATITIS WITHOUT ASCITES Status: Acute Current Visit: Yes Qualifiers: Ascites presence: unspecified Qualified Code(s): K70.10 - Alcoholic hepatitis without ascites (4) Hematemesis SNOMED Code(s): 0933656 ICD Code: K92.0 - HEMATEMESIS Status: Acute Current Visit: Yes Qualifiers: Nausea presence: with nausea Qualified Code(s): K92.0 - Hematemesis (5) Diabetes mellitus type 2, insulin dependent SNOMED Code(s): 787216740 ICD Code: E11.9 - TYPE 2 DIABETES MELLITUS WITHOUT COMPLICATIONS; Z79.4 - CUSTODIAL (CURRENT) USE OF INSULIN Status: Chronic Priority: Medium Current Visit: Yes (6) Alcohol withdrawal SNOMED Code(s): 385507024 ICD Code: F10.239 - ALCOHOL DEPENDENCE WITH WITHDRAWAL, UNSPECIFIED Status: Acute Current Visit: No Qualifiers: Complication of substance-induced condition: uncomplicated Qualified Code(s): F10.230 - Alcohol dependence with withdrawal, uncomplicated (7) Marijuana smoker SNOMED Code(s): 186093220 ICD Code: F12.90 - CANNABIS USE, UNSPECIFIED, UNCOMPLICATED Status: Acute Current Visit: No (8) Alcohol abuse SNOMED Code(s): 65288856 ICD Code: F10.10 - ALCOHOL ABUSE, UNCOMPLICATED Status: Chronic Current Visit: No Problem List Initiated/Reviewed/Updated: Yes Orders Last 24hrs: Active Orders 24 hr Category Date Time Status Patient Status [ADT] Routine ADT 12/08/20 09:14 Active Transfer Patient (Change bed) [ADT] Routine ADT 12/08/20 10:35 Ordered Blood Glucose Check, Bedside [RC] WITHMEALSANDBED Care 12/08/20 10:35 Active CIWAA Assessment [RC] Q1H Care 12/08/20 10:21 Active Diabetes Education [RC] Click to Edit Care 12/08/20 10:35 Active Notify Provider Consults [RC] ASDIRECTED Care 12/08/20 10:42 Active Notify Provider [RC] PRN Care 12/08/20 10:21 Active Oxygen Therapy [RC] PRN Care 12/08/20 09:14 Active Vital Signs [RC] Q1H Care 12/08/20 09:14 Active Consult to Physician [CONS] Routine Cons 12/08/20 10:40 Ordered Full Liquid Diet [DIET] Diet 12/08/20 Dinner Ordered Dextrose 50% in Water Med 12/08/20 10:36 Active 50 ml IV ONETIME PRN Folic Acid Med 12/08/20 10:30 Active 1 mg PO DAILY Glucagon,Human Recombinant [GlucaGen] Med 12/08/20 10:37 Active 1 mg IM ASDIRECTED PRN Insulin Glarg,Human.Rec.Analog [LantUS Solostar] Med 12/08/20 21:00 Active 40 units SUBCUT BEDTIME Insulin Lispro [HumaLOG] Med 12/08/20 11:00 Active See Protocol SUBCUT QIDACANDBED LORazepam [Ativan] Med 12/08/20 10:30 Active See Protocol IV ASDIRECTED LORazepam [Ativan] Med 12/08/20 10:30 Active See Protocol PO ASDIRECTED Labetalol [Normodyne] Med 12/08/20 11:03 Active 10 mg IVPUSH ONETIME PRN Metoprolol Succinate [Toprol XL] Med 12/09/20 09:00 Active 25 mg PO DAILY Octreotide [SandoSTATIN] 500 mcg Med 12/08/20 14:15 Active Sodium Chloride 0.9% [Normal Saline] 497.5 ml IV Q10H Pantoprazole [ProTONIX IV] 80 mg Med 12/08/20 08:00 Active Sodium Chloride 0.9% [Normal Saline] 100 ml IV Q10H Medication Orders Dextrose/Water (50% Dextrose In Water 50 Ml Syringe) 50 ml IV ONETIME PRN PRN Reason: HYPOGLYCEMIA Folic Acid (Folic Acid 1 Mg Tab) 1 mg PO DAILY [facility] Last Admin: 12/08/20 11:03 Dose: Not Given Documented by: FAUSTO Glucagon (Glucagon,Human Recombinant 1 Mg Vial) 1 mg IM ASDIRECTED PRN PRN Reason: Hypoglycemia Pantoprazole Sodium 80 mg/ (Sodium Chloride) 100 mls @ 10 mls/hr IV Q10H KATRHINE Last Admin: 12/08/20 18:22 Dose: 10 mls/hr Documented by: Infusion: 12/08/20 17:33 Dose: 10 mls/hr Documented by: Admin: 12/08/20 07:33 Dose: 10 mls/hr Documented by: YEIMI Octreotide Acetate 500 mcg/ (Sodium Chloride) 500 mls @ 50 mls/hr IV Q10H KATHRINE Last Admin: 12/08/20 14:39 Dose: 50 mcg/hr, 50 mls/hr Documented by: FAUSTO Insulin Glargine (Insulin Glargine,Human Rec. Analog 100 Units/Ml 3 Ml Pen) 40 units SUBCUT BEDTIME KATHRINE Insulin Human Lispro (Insulin Lispro 100 Unit/Ml 3 Ml Kwikpen) 0 unit SUBCUT QIDACANDBED KATHRINE; Protocol Last Admin: 12/08/20 17:19 Dose: 2 units Documented by: FAUSTO Cosigned by: KENIA Admin: 12/08/20 11:21 Dose: 2 units Documented by: FAUSTO Cosigned by: KENIA Labetalol HCl (Labetalol 20 Mg/4 Ml Syringe) 10 mg IVPUSH ONETIME PRN; Protocol PRN Reason: SUSTAINED HR > 120 Lorazepam (Lorazepam 1 Mg Tab) 0 mg PO ASDIRECTED KATHRINE; Protocol Last Admin: 12/08/20 19:38 Dose: 1 mg Documented by: KARINA Lorazepam (Lorazepam 2 Mg/Ml Sdv) 0 mg IV ASDIRECTED KATHRINE; Protocol Last Admin: 12/08/20 10:49 Dose: 2 mg Documented by: FAUSTO Metoprolol Succinate (Metoprolol Succinate 25 Mg Tab.Er) 25 mg PO DAILY KATHRINE Assessment/Plan Comment:: Upper GI bleed secondary to esophageal varices secondary to likely cirrhosis - banded today during EGD -Will continue to monitor for bleeding, currently having nausea and vomiting without any bleeding -Ondansetron 4 mg as needed for nausea and vomiting -Protonix 40 mg IV twice daily Alcoholic hepatitis with suspected/likely cirrhosis -Acute pain with significant heart rate elevation on palpation of the liver which feels to be enlarged, ascites likely present, body habitus appears malnourished -Liver labs elevated with an AST of 75, normal ALT, elevated alk phos 526, PT 13 Alcohol withdrawal with tremor and tachycardia, alcohol abuse and alcohol dependency -Patient states she does have a history of delirium tremens in the past -Continue CIWA protocol 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 I do not expect her stay to last longer than 2 midnights. Plan: We will monitor for any additional withdrawal symptoms and treat accordingly via the [facility] protocol. We will monitor for any additional bleeding and treat for nausea and vomiting. Upon discharge she will still be a candidate to be committed by the formerly [facility] for alcohol abuse and dependency. Loli Metzger, DO - Mortality Measure Prognosis:: Poor
[2020-12-08] MEDS ORDERED: Ondansetron 4 MG/2 ML SDV IVPUSH PRN (20:27)
[2020-12-08] MEDS: Pantoprazole 40 MG Vial IVPUSH SCH (20:56)
[2020-12-08] MEDS ORDERED: Insulin Glargine,Human Rec. Analog 100 Units/ML 3 ML Pen SUBCUT SCH (21:00)
[2020-12-09] MEDS: Insulin Lispro 100 Unit/ML 3 ML KwikPen SUBCUT SCH ×4 (07:34→20:39)
[2020-12-09] MEDS: Metoprolol Succinate 25 MG Tab.ER PO SCH (08:27)
[2020-12-09] MEDS: Folic Acid 1 MG Tab PO SCH (08:28)
[2020-12-09] MEDS: Pantoprazole 40 MG Vial IVPUSH SCH ×2 (08:28→20:30)
[2020-12-09] MEDS: LORazepam 1 MG Tab PO SCH ×2 (13:36→20:46)
--- NOTE | 2020-12-09 20:20 | PCM.PN ---
- General Info Date of Service: 12/09/20 Admission Dx/Problem (Free Text): Admission Diagnosis/Problem Admission Diagnosis/Problem Hematemesis with nausea, alcohol withdrawal Subjective Update: Ms. Santiago was lethargic today when I saw her. Later in the day she was feeling better and able to eat her soft diet without any issues so she requested a full diet which was given to her at dinnertime and she tolerated this. She is not having any complaints. Functional Status: Reports: Tolerating Diet, Ambulating, Urinating. Denies: New Symptoms - Review of Systems General: Reports: No Symptoms HEENT: Reports: No Symptoms Pulmonary: Reports: No Symptoms Cardiovascular: Reports: No Symptoms Gastrointestinal: Reports: No Symptoms. Denies: Nausea, Vomiting Genitourinary: Reports: No Symptoms Musculoskeletal: Reports: No Symptoms Skin: Reports: No Symptoms Neurological: Reports: No Symptoms Psychiatric: Reports: No Symptoms - Patient Data Vitals - Most Recent: Last Vital Signs Temp 96.4 F L 12/09/20 12:00 Pulse 82 12/09/20 18:00 Resp 18 12/09/20 18:00 BP 128/79 12/09/20 18:00 Pulse Ox 96 12/09/20 17:00 Weight - Most Recent: 136 lb 6.4 oz I&O - Last 24 Hours: Intake & Output 12/09/20 12/09/20 12/09/20 06:59 14:59 22:59 Intake Total 1660 600 Balance 1660 600 Lab Results Last 24 Hours: Laboratory Results - last 24 hr 12/08/20 12/09/20 12/09/20 Range/Units 20:41 06:19 06:19 WBC 5.1 (4.5-11.0) K/uL RBC 3.30 (3.30-5.50) M/uL Hgb 8.9 L (12.0-15.0) g/dL Hct 28.3 L (36.0-48.0) % MCV 86 (80-98) fL MCH 27 (27-31) pg MCHC 31 L (32-36) % Plt Count 109 L (150-400) K/uL Sodium 137 L (140-148) mmol/L Potassium 3.7 (3.6-5.2) mmol/L Chloride 100 (100-108) mmol/L Carbon Dioxide 29 (21-32) mmol/L Anion Gap 11.7 (5.0-14.0) mmol/L BUN 4 L (7-18) mg/dL Creatinine 1.0 (0.6-1.0) mg/dL Est Cr Clr Drug Dosing 55.54 mL/min Estimated GFR (MDRD) 58 L (>60) Glucose 86 (74-106) mg/dL POC Glucose 341 H (74-106) mg/dL Calcium 7.9 L (8.5-10.1) mg/dL 12/09/20 12/09/20 12/09/20 Range/Units 07:32 08:34 10:59 WBC (4.5-11.0) K/uL RBC (3.30-5.50) M/uL Hgb (12.0-15.0) g/dL Hct (36.0-48.0) % MCV (80-98) fL MCH (27-31) pg MCHC (32-36) % Plt Count (150-400) K/uL Sodium (140-148) mmol/L Potassium (3.6-5.2) mmol/L Chloride (100-108) mmol/L Carbon Dioxide (21-32) mmol/L Anion Gap (5.0-14.0) mmol/L BUN (7-18) mg/dL Creatinine (0.6-1.0) mg/dL Est Cr Clr Drug Dosing mL/min Estimated GFR (MDRD) (>60) Glucose (74-106) mg/dL POC Glucose 67 L 137 H 298 H (74-106) mg/dL Calcium (8.5-10.1) mg/dL 12/09/20 Range/Units 16:38 WBC (4.5-11.0) K/uL RBC (3.30-5.50) M/uL Hgb (12.0-15.0) g/dL Hct (36.0-48.0) % MCV (80-98) fL MCH (27-31) pg MCHC (32-36) % Plt Count (150-400) K/uL Sodium (140-148) mmol/L Potassium (3.6-5.2) mmol/L Chloride (100-108) mmol/L Carbon Dioxide (21-32) mmol/L Anion Gap (5.0-14.0) mmol/L BUN (7-18) mg/dL Creatinine (0.6-1.0) mg/dL Est Cr Clr Drug Dosing mL/min Estimated GFR (MDRD) (>60) Glucose (74-106) mg/dL POC Glucose 272 H (74-106) mg/dL Calcium (8.5-10.1) mg/dL Med Orders - Current: Current Medications Dextrose/Water (50% Dextrose In Water 50 Ml Syringe) 50 ml IV ONETIME PRN PRN Reason: HYPOGLYCEMIA Folic Acid (Folic Acid 1 Mg Tab) 1 mg PO DAILY [facility] Last Admin: 12/09/20 08:28 Dose: 1 mg Documented by: Glucagon (Glucagon,Human Recombinant 1 Mg Vial) 1 mg IM ASDIRECTED PRN PRN Reason: Hypoglycemia Insulin Glargine (Insulin Glargine,Human Rec. Analog 100 Units/Ml 3 Ml Pen) 45 units SUBCUT BEDTIME KATHRINE Insulin Human Lispro (Insulin Lispro 100 Unit/Ml 3 Ml Kwikpen) 0 unit SUBCUT QIDACANDBED KATHRINE; Protocol Last Admin: 12/09/20 16:50 Dose: 3 units Documented by: Labetalol HCl (Labetalol 20 Mg/4 Ml Syringe) 10 mg IVPUSH ONETIME PRN; Protocol PRN Reason: SUSTAINED HR > 120 Lorazepam (Lorazepam 1 Mg Tab) 0 mg PO ASDIRECTED KATHRINE; Protocol Last Admin: 12/09/20 13:36 Dose: 1 mg Documented by: Lorazepam (Lorazepam 2 Mg/Ml Sdv) 0 mg IV ASDIRECTED KATHRINE; Protocol Last Admin: 12/08/20 10:49 Dose: 2 mg Documented by: Metoprolol Succinate (Metoprolol Succinate 25 Mg Tab.Er) 25 mg PO DAILY [facility] Last Admin: 12/09/20 08:27 Dose: 25 mg Documented by: Ondansetron HCl (Ondansetron 4 Mg/2 Ml Sdv) 4 mg IVPUSH Q4H PRN PRN Reason: Nausea/Vomiting Pantoprazole Sodium (Pantoprazole 40 Mg Vial) 40 mg IVPUSH BID [facility] Last Admin: 12/09/20 08:28 Dose: 40 mg Documented by: Discontinued Medications Diphenhydramine HCl (Diphenhydramine 50 Mg/Ml Sdv) 25 mg IVPUSH ONETIME ONE Stop: 12/08/20 08:38 Last Admin: 12/08/20 08:50 Dose: Not Given Documented by: Droperidol (Droperidol 5 Mg/2 Ml Sdv) 1.25 mg IVPUSH ONETIME ONE Stop: 12/08/20 03:22 Last Admin: 12/08/20 03:27 Dose: 1.25 mg Documented by: Droperidol (Droperidol 5 Mg/2 Ml Sdv) 1.25 mg IVPUSH ONETIME ONE Stop: 12/08/20 08:55 Last Admin: 12/08/20 09:01 Dose: 1.25 mg Documented by: Multivitamins/Minerals 10 ml/Thiamine HCl 100 mg/ Folic Acid 1 mg/ Magnesium Sulfate 3 gm/ Sodium Chloride 1,017.2 mls @ 500 mls/hr IV ASDIRECTED ONE Stop: 12/07/20 16:47 Last Admin: 12/07/20 15:30 Dose: 500 mls/hr Documented by: Octreotide Acetate 500 mcg/ (Sodium Chloride) 500 mls @ 50 mls/hr IV Q10H [facility] Last Admin: 12/08/20 04:12 Dose: 50 mcg/hr, 50 mls/hr Documented by: Pantoprazole Sodium 80 mg/ (Sodium Chloride) 100 mls @ 10 mls/hr IV Q10H [facility] Last Admin: 12/08/20 18:22 Dose: 10 mls/hr Documented by: Sodium Chloride (Normal Saline) Confirm Administered Dose 10 mls @ as directed .ROUTE .STK-MED ONE Stop: 12/08/20 12:10 Octreotide Acetate 500 mcg/ (Sodium Chloride) 500 mls @ 50 mls/hr IV Q10H [facility] Last Admin: 12/08/20 14:39 Dose: 50 mcg/hr, 50 mls/hr Documented by: Insulin Glargine (Insulin Glargine,Human Rec. Analog 100 Units/Ml 3 Ml Pen) 40 units SUBCUT BEDTIME [facility] Last Admin: 12/08/20 20:46 Dose: 40 unit Documented by: Ondansetron HCl (Ondansetron 4 Mg/2 Ml Sdv) 8 mg IVPUSH ONETIME ONE Stop: 12/08/20 00:36 Last Admin: 12/08/20 00:40 Dose: 8 mg Documented by: Pantoprazole Sodium (Pantoprazole 40 Mg Vial) 40 mg IVPUSH ONETIME ONE Stop: 12/08/20 03:43 Last Admin: 12/08/20 04:18 Dose: 40 mg Documented by: Prochlorperazine Edisylate (Prochlorperazine 10 Mg/2 Ml Sdv) 10 mg IVPUSH ONETIME ONE Stop: 12/08/20 08:38 Last Admin: 12/08/20 08:50 Dose: Not Given Documented by: Propofol (Propofol 200 Mg/20 Ml Sdv) Confirm Administered Dose 200 mg .ROUTE .STK-MED ONE Stop: 12/08/20 11:24 Propofol (Propofol 200 Mg/20 Ml Sdv) Confirm Administered Dose 200 mg .ROUTE .STK-MED ONE Stop: 12/08/20 12:16 - Exam General: Cooperative, No Acute Distress, Lethargic HEENT: Pupils Equal, EOMI, Mucous Membr. Moist/[place] Neck: Supple, Trachea Midline Lungs: Clear to Auscultation, Normal Respiratory Effort Cardiovascular: Regular Rate, Regular Rhythm GI/Abdominal Exam: Normal Bowel Sounds, Soft, Non-Tender, No Distention Extremities: Normal Inspection, No Pedal Edema Skin: Warm, Dry, Intact Neurological: No New Focal Deficit Psy/Mental Status: Alert, Normal Affect, Normal Mood - Patient Data Lab Results Last 24 hrs: Laboratory Results - last 24 hr 12/08/20 12/09/20 12/09/20 Range/Units 20:41 06:19 06:19 WBC 5.1 (4.5-11.0) K/uL RBC 3.30 (3.30-5.50) M/uL Hgb 8.9 L (12.0-15.0) g/dL Hct 28.3 L (36.0-48.0) % MCV 86 (80-98) fL MCH 27 (27-31) pg MCHC 31 L (32-36) % Plt Count 109 L (150-400) K/uL Sodium 137 L (140-148) mmol/L Potassium 3.7 (3.6-5.2) mmol/L Chloride 100 (100-108) mmol/L Carbon Dioxide 29 (21-32) mmol/L Anion Gap 11.7 (5.0-14.0) mmol/L BUN 4 L (7-18) mg/dL Creatinine 1.0 (0.6-1.0) mg/dL Est Cr Clr Drug Dosing 55.54 mL/min Estimated GFR (MDRD) 58 L (>60) Glucose 86 (74-106) mg/dL POC Glucose 341 H (74-106) mg/dL Calcium 7.9 L (8.5-10.1) mg/dL 12/09/20 12/09/20 12/09/20 Range/Units 07:32 08:34 10:59 WBC (4.5-11.0) K/uL RBC (3.30-5.50) M/uL Hgb (12.0-15.0) g/dL Hct (36.0-48.0) % MCV (80-98) fL MCH (27-31) pg MCHC (32-36) % Plt Count (150-400) K/uL Sodium (140-148) mmol/L Potassium (3.6-5.2) mmol/L Chloride (100-108) mmol/L Carbon Dioxide (21-32) mmol/L Anion Gap (5.0-14.0) mmol/L BUN (7-18) mg/dL Creatinine (0.6-1.0) mg/dL Est Cr Clr Drug Dosing mL/min Estimated GFR (MDRD) (>60) Glucose (74-106) mg/dL POC Glucose 67 L 137 H 298 H (74-106) mg/dL Calcium (8.5-10.1) mg/dL 12/09/20 Range/Units 16:38 WBC (4.5-11.0) K/uL RBC (3.30-5.50) M/uL Hgb (12.0-15.0) g/dL Hct (36.0-48.0) % MCV (80-98) fL MCH (27-31) pg MCHC (32-36) % Plt Count (150-400) K/uL Sodium (140-148) mmol/L Potassium (3.6-5.2) mmol/L Chloride (100-108) mmol/L Carbon Dioxide (21-32) mmol/L Anion Gap (5.0-14.0) mmol/L BUN (7-18) mg/dL Creatinine (0.6-1.0) mg/dL Est Cr Clr Drug Dosing mL/min Estimated GFR (MDRD) (>60) Glucose (74-106) mg/dL POC Glucose 272 H (74-106) mg/dL Calcium (8.5-10.1) mg/dL Result Diagrams: 12/09/20 06:19 12/09/20 06:19 Sepsis Event Note - Evaluation Sepsis Screening Result: No Definite Risk - Focused Exam Vital Signs: Vital Signs Temp Pulse Pulse Resp BP BP Pulse Ox 12/09/20 18:00 82 18 128/79 12/09/20 17:00 81 19 135/80 96 12/09/20 16:00 79 18 130/73 96 12/09/20 15:00 78 129/79 12/09/20 14:00 79 23 H 123/76 97 12/09/20 13:00 90 20 133/70 95 12/09/20 12:00 96.4 F L 79 21 H 123/79 96 12/09/20 11:00 95 20 133/82 93 L 12/09/20 10:00 102 H 21 H 120/70 94 L 12/09/20 09:00 99 18 116/68 12/09/20 08:27 107 H 119/73 - Problem List & Annotations (1) Esophageal varices with bleeding SNOMED Code(s): 60273798, 87887591 Code(s): I85.01 - ESOPHAGEAL VARICES WITH BLEEDING Status: Acute Current Visit: Yes (2) Alcohol dependence SNOMED Code(s): 26096574 Code(s): F10.20 - ALCOHOL DEPENDENCE, UNCOMPLICATED Status: Acute Current Visit: Yes Qualifiers: Substance use status: in withdrawal Qualified Code(s): F10.20 - Alcohol dependence, uncomplicated (3) Alcoholic hepatitis SNOMED Code(s): 703872804 Code(s): K70.10 - ALCOHOLIC HEPATITIS WITHOUT ASCITES Status: Acute Current Visit: Yes Qualifiers: Ascites presence: unspecified Qualified Code(s): K70.10 - Alcoholic hepatitis without ascites (4) Hematemesis SNOMED Code(s): 1620317 Code(s): K92.0 - HEMATEMESIS Status: Acute Current Visit: Yes Qualifiers: Nausea presence: with nausea Qualified Code(s): K92.0 - Hematemesis (5) Diabetes mellitus type 2, insulin dependent SNOMED Code(s): 050937674 Code(s): E11.9 - TYPE 2 DIABETES MELLITUS WITHOUT COMPLICATIONS; 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 Priority: Medium Current Visit: Yes (6) Alcohol withdrawal SNOMED Code(s): 199542320 Code(s): F10.239 - ALCOHOL DEPENDENCE WITH WITHDRAWAL, UNSPECIFIED Status: Resolved Current Visit: No Qualifiers: Complication of substance-induced condition: uncomplicated Qualified Code(s): F10.230 - Alcohol dependence with withdrawal, uncomplicated (7) Marijuana smoker SNOMED Code(s): 887379951 Code(s): F12.90 - CANNABIS USE, UNSPECIFIED, UNCOMPLICATED Status: Chronic Current Visit: No (8) Alcohol abuse SNOMED Code(s): 99687664 Code(s): F10.10 - ALCOHOL ABUSE, UNCOMPLICATED Status: Chronic Current Visit: No - Problem List Review Problem List Initiated/Reviewed/Updated: Yes - My Orders Last 24 Hours: My Active Orders 12/08/20 20:27 Ondansetron [Zofran] 4 mg IVPUSH Q4H PRN 12/08/20 21:00 Pantoprazole [ProTONIX IV] 40 mg IVPUSH BID 12/09/20 Breakfast Soft Diet [DIET] 12/09/20 09:00 Metoprolol Succinate [Toprol XL] 25 mg PO DAILY 12/09/20 Dinner Consistent Carbohydrate Diet [DIET] 12/09/20 21:00 Insulin Glarg,Human.Rec.Analog [LantUS Solostar] 45 units SUBCUT BEDTIME - Plan Plan:: Upper GI bleed secondary to esophageal varices secondary to likely cirrhosis- resolved - banded during EGD -Will continue to monitor for bleeding, currently having nausea and vomiting without any bleeding -Ondansetron 4 mg as needed for nausea and vomiting -Protonix 40 mg IV twice daily Alcoholic hepatitis with suspected/likely cirrhosis -Acute pain with significant heart rate elevation on palpation of the liver which feels to be enlarged, ascites likely present, body habitus appears malnourished -Liver labs elevated with an AST of 75, normal ALT, elevated alk phos 526, PT 13 Alcohol withdrawal with tremor and tachycardia, alcohol abuse and alcohol dependency-no symptoms present today -Patient states she does have a history of delirium tremens in the past -Continue CIWA protocol 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 I do not expect her stay to last longer than 2 midnights. Plan: She was able to tolerate solids for dinner this evening. Will monitor her overnight and plan for discharge in the morning. She will need to go back to the [facility] as she is committed. Loli Metzger, DO
[2020-12-09] MEDS ORDERED: Insulin Glargine,Human Rec. Analog 100 Units/ML 3 ML Pen SUBCUT SCH (21:00)
[2020-12-10] MEDS ORDERED: Metoprolol Succinate 25 MG Tab.ER PO SCH
[2020-12-10] MEDS ORDERED: Folic Acid 1 MG Tab PO SCH
[2020-12-10] MEDS: Insulin Lispro 100 Unit/ML 3 ML KwikPen SUBCUT SCH ×2 (08:04→11:53)
[2020-12-10] MEDS ORDERED: Potassium Chloride 20 MEQ Tab.ER PO ONE (09:00)
[2020-12-10] MEDS: Folic Acid 1 MG Tab PO SCH (09:16)
[2020-12-10] MEDS: Pantoprazole 40 MG Vial IVPUSH SCH (09:17)
[2020-12-10 09:18] VITALS: PULSE 90
[2020-12-10] MEDS: Metoprolol Succinate 25 MG Tab.ER PO SCH (09:18)
[2020-12-10] MEDS: LORazepam 1 MG Tab PO SCH (09:53)
[2020-12-10 11:56] VITALS: BP 115/73
--- NOTE | 2020-12-10 21:48 | OR ---
DATE OF PROCEDURE: 12/08/2020 SURGEON: Norman Bird MD PROCEDURE: Esophagogastroduodenoscopy with esophageal varices banding. FINDINGS: Mild bleeding of esophageal varices. COMPLICATIONS: None. 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 PREOPERATIVE DIAGNOSIS: Esophageal bleeding. POSTOPERATIVE DIAGNOSIS: Esophageal bleeding. RISKS: Risks, benefits, alternatives, and limitations including, but not limited to infection, bleeding, perforation, requirement for reoperation, and other risks not listed here were explained to the patient and she wished to proceed. PROCEDURE IN DETAIL: The patient was placed in left lateral decubitus position. The EGD scope was introduced and advanced atraumatically to the second part of the duodenum. No evidence of duodenitis or ulceration. No evidence of old or new blood. Within the stomach itself, there was no gastritis. The esophagus showed a mildly bleeding esophageal varices in a field of a large amount of varices. This was subsequently banded using the endoscopic banding system. The air was removed from the stomach. The band seated well. Remainder of the esophagus was inspected without abnormality. The patient tolerated the procedure well. Norman Bird MD /[id number]
--- NOTE | 2020-12-12 09:23 | PCM.DCSUM1 ---
Discharge Summary - Hospital Course Free Text/Narrative:: Ms. Santiago is a 55-year-old female who presented after being found unresponsive during a welfare check and was found to be intoxicated. While she was in our ED she was detoxing and began to have episodes of significant hematemesis. She was admitted for observation of her blood loss and for an EGD which was done by Dr. Bird who found that she had esophageal varices and required banding of one of the varices. We kept her until she was able to tolerate a regular diet. She is committed through the [facility] and was discharged home to them. Diagnosis: Stroke: No Modified [place] Scale: No Signif.Disability Despite Sympt.Able to Carry Out Usual Act./Duties Modified [place] Scale Score: 1 - Discharge Data Discharge Date: 12/10/20 Discharge Disposition: DC/Tfer to Inpt Rehab Fac 62 Condition: Good - Referral to Home Health Primary Care Physician: PCP None - Discharge Diagnosis/Problem(s) (1) Esophageal varices with bleeding SNOMED Code(s): 05800941, 65002029 ICD Code: I85.01 - ESOPHAGEAL VARICES WITH BLEEDING Status: Acute (2) Alcohol dependence SNOMED Code(s): 29192880 ICD Code: F10.20 - ALCOHOL DEPENDENCE, UNCOMPLICATED Status: Acute Qualifiers: Substance use status: in withdrawal Qualified Code(s): F10.20 - Alcohol dependence, uncomplicated (3) Alcoholic hepatitis SNOMED Code(s): 056513792 ICD Code: K70.10 - ALCOHOLIC HEPATITIS WITHOUT ASCITES Status: Acute Qualifiers: Ascites presence: unspecified Qualified Code(s): K70.10 - Alcoholic hepatitis without ascites (4) Hematemesis SNOMED Code(s): 8761686 ICD Code: K92.0 - HEMATEMESIS Status: Acute Qualifiers: Nausea presence: with nausea Qualified Code(s): K92.0 - Hematemesis (5) Diabetes mellitus type 2, insulin dependent SNOMED Code(s): 533135167 ICD Code: E11.9 - TYPE 2 DIABETES MELLITUS WITHOUT COMPLICATIONS; 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 Priority: Medium (6) Alcohol withdrawal SNOMED Code(s): 338997709 ICD Code: F10.239 - ALCOHOL DEPENDENCE WITH WITHDRAWAL, UNSPECIFIED Status: Resolved Qualifiers: Complication of substance-induced condition: uncomplicated Qualified Code(s): F10.230 - Alcohol dependence with withdrawal, uncomplicated (7) Marijuana smoker SNOMED Code(s): 572272215 ICD Code: F12.90 - CANNABIS USE, UNSPECIFIED, UNCOMPLICATED Status: Chronic (8) Alcohol abuse SNOMED Code(s): 55991034 ICD Code: F10.10 - ALCOHOL ABUSE, UNCOMPLICATED Status: Chronic - Patient Summary/Data Operative Procedure(s) Performed: Endoscopy Consults: Consultations 12/08/20 10:40 Consult to Physician [CONS] Routine Consulting Provider: Norman Bird Call Completed to Consulting Physician: Yes Reason for Consult: EGD - Patient Instructions Diet, Other: consistant carb Showering/Bathing: August Shower - Discharge Plan Prescriptions/Med Rec: Folic Acid 1 mg PO DAILY #30 tablet Insulin Glarg,Human.Rec.Analog [Lantus Solostar] 40 units SUBCUT BEDTIME #1 pen Home Medications: Home Meds Insulin Aspart [Novolog Flexpen] 20 units SUBCUT TID 04/07/15 [History] Metoprolol Succinate [Toprol XL] 25 mg PO DAILY #30 tab.er 07/10/20 [Rx] Folic Acid 1 mg PO DAILY #30 tablet 12/10/20 [Rx] Insulin Glarg,Human.Rec.Analog [Lantus Solostar] 40 units SUBCUT BEDTIME #1 pen 12/10/20 [Rx] Patient Handouts: Alcohol Withdrawal Syndrome Forms: ED Department Discharge Referrals: PCP,None [Primary Care Provider] - - Discharge Summary/Plan Comment DC Time >30 min.: Yes Total # of Minutes for Discharge Time: 60 2 coordinate with the [facility] for discharge - General Info Date of Service: 12/10/20 Admission Dx/Problem (Free Text: Admission Diagnosis/Problem Admission Diagnosis/Problem Hematemesis with nausea, alcohol withdrawal Subjective Update: Ms. Santaigo was tolerating a diet. She had no nausea or vomiting. She was having no issues with her stools. And she had no complaints. Functional Status: Reports: Tolerating Diet, Ambulating, Urinating. Denies: New Symptoms - Review of Systems General: Reports: No Symptoms, Appetite HEENT: Reports: No Symptoms Pulmonary: Reports: No Symptoms Cardiovascular: Reports: No Symptoms Gastrointestinal: Reports: No Symptoms Genitourinary: Reports: No Symptoms Musculoskeletal: Reports: No Symptoms Skin: Reports: No Symptoms Neurological: Reports: No Symptoms Psychiatric: Reports: No Symptoms - Patient Data Vitals - Most Recent: Last Vital Signs Temp 98 F 12/10/20 11:55 Pulse 90 12/10/20 09:18 Resp 12 12/10/20 11:55 BP 115/73 12/10/20 11:55 Pulse Ox 96 12/10/20 11:55 Weight - Most Recent: 136 lb 6.4 oz Med Orders - Current: Current Medications Discontinued Medications Dextrose/Water (50% Dextrose In Water 50 Ml Syringe) 50 ml IV ONETIME PRN PRN Reason: HYPOGLYCEMIA Diphenhydramine HCl (Diphenhydramine 50 Mg/Ml Sdv) 25 mg IVPUSH ONETIME ONE Stop: 12/08/20 08:38 Last Admin: 12/08/20 08:50 Dose: Not Given Documented by: Droperidol (Droperidol 5 Mg/2 Ml Sdv) 1.25 mg IVPUSH ONETIME ONE Stop: 12/08/20 03:22 Last Admin: 12/08/20 03:27 Dose: 1.25 mg Documented by: Droperidol (Droperidol 5 Mg/2 Ml Sdv) 1.25 mg IVPUSH ONETIME ONE Stop: 12/08/20 08:55 Last Admin: 12/08/20 09:01 Dose: 1.25 mg Documented by: Folic Acid (Folic Acid 1 Mg Tab) 1 mg PO DAILY [facility] Last Admin: 12/10/20 09:16 Dose: 1 mg Documented by: Folic Acid (Folic Acid 1 Mg Tab) 1 mg PO DAILY Stop: 12/12/20 23:59 Glucagon (Glucagon,Human Recombinant 1 Mg Vial) 1 mg IM ASDIRECTED PRN PRN Reason: Hypoglycemia Multivitamins/Minerals 10 ml/Thiamine HCl 100 mg/ Folic Acid 1 mg/ Magnesium Sulfate 3 gm/ Sodium Chloride 1,017.2 mls @ 500 mls/hr IV ASDIRECTED ONE Stop: 12/07/20 16:47 Last Admin: 12/07/20 15:30 Dose: 500 mls/hr Documented by: Octreotide Acetate 500 mcg/ (Sodium Chloride) 500 mls @ 50 mls/hr IV Q10H [facility] Last Admin: 12/08/20 04:12 Dose: 50 mcg/hr, 50 mls/hr Documented by: Pantoprazole Sodium 80 mg/ (Sodium Chloride) 100 mls @ 10 mls/hr IV Q10H [facility] Last Admin: 12/08/20 18:22 Dose: 10 mls/hr Documented by: Sodium Chloride (Normal Saline) Confirm Administered Dose 10 mls @ as directed .ROUTE .STK-MED ONE Stop: 12/08/20 12:10 Octreotide Acetate 500 mcg/ (Sodium Chloride) 500 mls @ 50 mls/hr IV Q10H [facility] Last Admin: 12/08/20 14:39 Dose: 50 mcg/hr, 50 mls/hr Documented by: Insulin Glargine (Insulin Glargine,Human Rec. Analog 100 Units/Ml 3 Ml Pen) 40 units SUBCUT BEDTIME [facility] Last Admin: 12/08/20 20:46 Dose: 40 unit Documented by: Insulin Glargine (Insulin Glargine,Human Rec. Analog 100 Units/Ml 3 Ml Pen) 45 units SUBCUT BEDTIME [facility] Last Admin: 12/09/20 20:40 Dose: 45 units Documented by: Insulin Human Lispro (Insulin Lispro 100 Unit/Ml 3 Ml Kwikpen) 0 unit SUBCUT QIDACANDBED KATHRINE; Protocol Last Admin: 12/10/20 11:53 Dose: 2 units Documented by: Labetalol HCl (Labetalol 20 Mg/4 Ml Syringe) 10 mg IVPUSH ONETIME PRN; Protocol PRN Reason: SUSTAINED HR > 120 Lorazepam (Lorazepam 1 Mg Tab) 0 mg PO ASDIRECTED KATHRINE; Protocol Last Admin: 12/10/20 09:53 Dose: 1 mg Documented by: Lorazepam (Lorazepam 2 Mg/Ml Sdv) 0 mg IV ASDIRECTED KATHRINE; Protocol Last Admin: 12/08/20 10:49 Dose: 2 mg Documented by: Metoprolol Succinate (Metoprolol Succinate 25 Mg Tab.Er) 25 mg PO DAILY [facility] Last Admin: 12/10/20 09:18 Dose: 25 mg Documented by: Metoprolol Succinate (Metoprolol Succinate 25 Mg Tab.Er) 25 mg PO DAILY Stop: 12/12/20 23:59 Ondansetron HCl (Ondansetron 4 Mg/2 Ml Sdv) 8 mg IVPUSH ONETIME ONE Stop: 12/08/20 00:36 Last Admin: 12/08/20 00:40 Dose: 8 mg Documented by: Ondansetron HCl (Ondansetron 4 Mg/2 Ml Sdv) 4 mg IVPUSH Q4H PRN PRN Reason: Nausea/Vomiting Pantoprazole Sodium (Pantoprazole 40 Mg Vial) 40 mg IVPUSH ONETIME ONE Stop: 12/08/20 03:43 Last Admin: 12/08/20 04:18 Dose: 40 mg Documented by: Pantoprazole Sodium (Pantoprazole 40 Mg Vial) 40 mg IVPUSH BID [facility] Last Admin: 12/10/20 09:17 Dose: 40 mg Documented by: Potassium Chloride (Potassium Chloride 20 Meq Tab.Er) 20 meq PO ONETIME ONE Stop: 12/10/20 09:01 Last Admin: 12/10/20 09:16 Dose: 20 meq Documented by: Prochlorperazine Edisylate (Prochlorperazine 10 Mg/2 Ml Sdv) 10 mg IVPUSH ONETIME ONE Stop: 12/08/20 08:38 Last Admin: 12/08/20 08:50 Dose: Not Given Documented by: Propofol (Propofol 200 Mg/20 Ml Sdv) Confirm Administered Dose 200 mg .ROUTE .STK-MED ONE Stop: 12/08/20 11:24 Propofol (Propofol 200 Mg/20 Ml Sdv) Confirm Administered Dose 200 mg .ROUTE .STK-MED ONE Stop: 12/08/20 12:16 - Exam General: Reports: Alert, Oriented, Cooperative, No Acute Distress HEENT: Reports: Pupils Equal, EOMI, Mucous Membr. Moist/[place] Neck: Reports: Supple, Trachea Midline Lungs: Reports: Clear to Auscultation, Normal Respiratory Effort Cardiovascular: Reports: Regular Rate, Regular Rhythm GI/Abdominal Exam: Normal Bowel Sounds, Soft, Non-Tender, Distended (Not tied appears to be chronic) Extremities: Normal Inspection, Non-Tender, No Pedal Edema Skin: Reports: Warm, Dry, Intact Neurological: Reports: No New Focal Deficit Psy/Mental Status: Reports: Alert, Normal Affect, Normal Mood
== END 2020-12-10 13:37 ==
LOC: JP.ED 13:09 → JP.ICU 12-08 09:14
PROVIDERS: ADMIT Internal Medicine; ATTEND Internal Medicine
DX: I85.01 Esophageal varices with bleeding (principal); F10.229 Alcohol dependence with intoxication, unspecified; K70.10 Alcoholic hepatitis without ascites; K92.0 Hematemesis; F10.230 Alcohol dependence with withdrawal, uncomplicated; I12.9 Hypertensive chronic kidney disease with stage 1 through stage 4 chronic kidney disease, or unspecified chronic kidney disease; F12.90 Cannabis use, unspecified, uncomplicated; I25.10 Atherosclerotic heart disease of native coronary artery without angina pectoris; I25.2 Old myocardial infarction; E78.00 Pure hypercholesterolemia, unspecified; E11.22 Type 2 diabetes mellitus with diabetic chronic kidney disease; N18.9 Chronic kidney disease, unspecified; F17.210 Nicotine dependence, cigarettes, uncomplicated; Z88.0 Allergy status to penicillin; Z91.013 Allergy to seafood; Z91.018 Allergy to other foods; Z79.4 Long term (current) use of insulin; Z20.822 Contact with and (suspected) exposure to COVID-19; Z79.899 Other long term (current) drug therapy; Y90.4 Blood alcohol level of 80-99 mg/100 ml
CPT/HCPCS: 36415; 43244; 70450; 80048; 80053; 80143; 80305; 80307; 81001; 82947; 85025; 85027; 85610; 85730; 86850; 86900; 86901; 87635; 96365; 96366; 96367; 96375; 96376; 99285; A9270; C9113; G0378; J1790; J1815; J2060; J2354; J2405; J2704; J3411; J3475; J7030; J7040; J3490; U0002

== ENCOUNTER 2021-01-06 15:00 | Emergency (ER) | payer MEDICAID ==
[2021-01-06 15:19] VITALS: BP 119/64; PULSE 93
--- NOTE | 2021-01-06 15:30 | EDM.PDOC ---
ED HPI GENERAL MEDICAL PROBLEM - General Chief Complaint: Back Pain or Injury Stated Complaint: FELL HURT RIGHT SIDE Time Seen by Provider: 01/06/21 15:29 Source of Information: Reports: Patient, RN Notes Reviewed History Limitations: Reports: No Limitations - History of Present Illness INITIAL COMMENTS - FREE TEXT/NARRATIVE: Meghan presents today for complaints of pain to right ribs after fall this morning around 0230 from standing. She states she tripped and fell onto the floor on her right side. She denies LOC, any other injuries. She denies fever, chills, nausea, vomiting, change in bowel/bladder or other concerns. right rib area Pain Score (Numeric/FACES): 6 - Related Data Allergies Allergy/AdvReac Type Severity Reaction Status Date / Time kiwi Allergy Severe Anaphylactic Verified 01/06/21 15:15 Shock shrimp Allergy Severe Anaphylactic Verified 01/06/21 15:15 Shock niacin Allergy Hives Verified 01/06/21 15:15 Penicillins Allergy Hives Verified 01/06/21 15:15 lisinopril AdvReac Cough Verified 01/06/21 15:15 Home Meds: Home Meds Insulin Aspart [Novolog Flexpen] 10 units SUBCUT TID 04/07/15 [History] Metoprolol Succinate [Toprol XL] 25 mg PO DAILY #30 tab.er 07/10/20 [Rx] Folic Acid 1 mg PO DAILY #30 tablet 12/10/20 [Rx] Insulin Glarg,Human.Rec.Analog [Lantus Solostar] 20 units SUBCUT BEDTIME 01/06/21 [History] Past Medical History HEENT History: Reports: Impaired Vision Cardiovascular History: Reports: Arrhythmia, CAD, High Cholesterol, Hypertension, PA, Syncope Gastrointestinal History: Reports: Cholelithiasis, Gastritis, GI Bleed, Hemorrhoids, Pancreatitis, Other (See Below) Other Gastrointestinal History: malnutrition Genitourinary History: Reports: Acute Renal Failure, Chronic Renal Insuffiency, Urinary Incontinence, Other (See Below) Other Genitourinary History: decreased kidney function [employer]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 orbital fracture Neurological History: Reports: Concussion, Neuropathy, Diabetic, Other (See Below) Other Neuro History: chronic fatigue syndrom Psychiatric History: Reports: Addiction, Anxiety, Depression, PTSD Endocrine/Metabolic History: Reports: Diabetes, Type II Hematologic History: Reports: Blood Transfusion(s) Other Hematologic History: unable to obtain Immunologic History: Reports: Other (See Below) Other Immunologic History: unable to obtain Oncologic (Cancer) History: Reports: Other (See Below) Other Oncologic History: unable to obtain Dermatologic History: Reports: Psoriasis - Infectious Disease History Infectious Disease History: Reports: MRSA Other Infectious Disease History: unable to obtain - Past Surgical History HEENT Surgical History: Reports: None Cardiovascular Surgical History: Reports: None GI Surgical History: Reports: Appendectomy, Cholecystectomy Social & Family History - Family History Family Medical History: Unobtainable - Tobacco Use Tobacco Use Status *Q: Never Tobacco User - Caffeine Use Caffeine Use: Reports: None Other Caffeine Use: unknown - Recreational Drug Use Recreational Drug Use: No ED ROS GENERAL - Review of Systems Review Of Systems: See Below Constitutional: Reports: No Symptoms HEENT: Reports: No Symptoms Respiratory: Reports: Other (right posterior rib/chest pain after fall this am at 0230. She denies striking any objects. She reports fall from standing and landing on her right side. ). Denies: Shortness of Breath, Wheezing, Cough, Sputum, Hemoptysis Cardiovascular: Reports: Chest Pain (to right posterior ribs. No radiation of pain. ). Denies: Blood Pressure Problem, Claudication, Dyspnea on Exertion, Edema, Lightheadedness, Orthopnea, Palpitations, PND, Syncope Endocrine: Reports: No Symptoms GI/Abdominal: Reports: No Symptoms : Reports: No Symptoms Musculoskeletal: Reports: No Symptoms Skin: Denies: Jaundice, Pallor, Diaphoresis, Bruising, Rash, Erythema, Wound, Lesions Neurological: Reports: No Symptoms Psychiatric: Reports: No Symptoms Hematologic/Lymphatic: Reports: No Symptoms Immunologic: Reports: No Symptoms ED EXAM, GENERAL - Physical Exam Exam: See Below Exam Limited By: No Limitations General Appearance: Alert, WD/WN, Mild Distress Eye Exam: Bilateral Eye: Normal Inspection, PERRL Ears: Normal External Exam, Normal Canal, Hearing Grossly Normal, Normal TMs Nose: Normal Inspection, Normal Mucosa, No Blood Throat/Mouth: Normal Inspection, Normal Lips, Normal Gums, Normal Oropharynx, Normal Voice, No Airway Compromise Head: Atraumatic, Normocephalic Neck: Normal Inspection, Supple, Non-Tender, Full Range of Motion. No: Lymphadenopathy (R), Lymphadenopathy (L) Respiratory/Chest: No Respiratory Distress, No Accessory Muscle Use, Decreased Breath Sounds (to right, tenderness with palpation to right posterior ribs. No ecchymoisis noted. No crepitus.). No: Crackles, Rales, Rhonchi, Wheezing, Accessory Muscle Use, Retractions, Splinting Cardiovascular: Normal Peripheral Pulses, Regular Rate, Rhythm, No Edema, No Gallop, No JVD, No Murmur, No Rub Peripheral Pulses: 4+: Radial (L), Radial (R), Dorsalis Pedis (L), Dorsalis Pedis (R) GI/Abdominal: Normal Bowel Sounds, Soft, Non-Tender, No Organomegaly, No Distention, No Abnormal Bruit, No Mass. No: Guarding, Rigid, Rebound (Female) Exam: Deferred Rectal (Female) Exam: Deferred Back Exam: Full Range of Motion, CVA Tenderness (R). No: CVA Tenderness (L), Muscle Spasm, Paraspinal Tenderness, Vertebral Tenderness Extremities: Normal Inspection, Normal Range of Motion, Non-Tender, No Pedal Edema, Normal Capillary Refill Neurological: Alert, Oriented, CN II-XII Intact, Normal Cognition, Normal Gait, Normal Reflexes, No Motor/Sensory Deficits Psychiatric: Normal Affect, Normal Mood Skin Exam: Warm, Dry, Intact, Normal Color, No Rash Lymphatic: No Adenopathy Course - Vital Signs Last Recorded V/S: Last Vital Signs Temp 36.2 C 01/06/21 15:22 Pulse 93 01/06/21 15:22 Resp 14 01/06/21 15:22 BP 119/64 01/06/21 15:22 Pulse Ox 99 01/06/21 15:22 - Orders/Labs/Meds Orders: Active Orders 24 hr Category Date Time Status Ribs 3V wo Chest Rt [CR] Stat Exams 01/06/21 15:41 Taken Labs: Laboratory Tests 01/06/21 Range/Units 16:14 Urine Color Yellow (YELLOW) Urine Appearance Clear (CLEAR) Urine pH 6.0 (5.0-8.0) Ur Specific [place] 1.025 (1.008-1.030) Urine Protein Negative (NEGATIVE) mg/dL Urine Glucose (UA) 100 H (NEGATIVE) mg/dL Urine Ketones Negative (NEGATIVE) mg/dL Urine Occult Blood Negative (NEGATIVE) Urine Nitrite Negative (NEGATIVE) Urine Bilirubin Small H (NEGATIVE) Urine Urobilinogen 1.0 (0.2-1.0) EU/dL Ur Leukocyte Esterase Negative (NEGATIVE) Meds: Medications Discontinued Medications Generic Name Dose Route Start Last Admin Trade Name Radha PRN Reason Stop Dose Admin Hydrocodone Bitart/Acetaminophen 1 tab 01/06/21 15:39 Acetaminophen/Hydrocodone 325-10 Mg Tab PO 01/06/21 15:40 ONETIME ONE Hydrocodone Bitart/Acetaminophen 1 tab 01/06/21 15:40 01/06/21 16:08 Acetaminophen/Hydrocodone 325-5 Mg Tab PO 01/06/21 15:41 1 tab ONETIME ONE Administration Lidocaine 700 mg 01/06/21 16:25 01/06/21 16:46 Lidocaine 5% 700 Mg Patch TRDERM 01/06/21 16:26 700 mg ONETIME ONE Administration - Radiology Interpretation Free Text/Narrative:: Chest x-ray with right rib detail reviewed per Dr. Beltre and myself, no acute findings noted. Meghan notified. She will be provided a lidocaine patch and prescription to obtain while in [facility]. She can take 650mg acetaminophen BID for pain as well. Her primary can review for any ongoing needs of pain control. Meghan is in agreement with plan. Departure - Departure Time of Disposition: 16:31 Disposition: Home, Self-Care 01 Condition: Good Clinical Impression: Fall from standing, Rib pain on right side Instructions: Fall Prevention in the Home, Adult, [id number] Referrals: Romina Goodson MD [Primary Care Provider] - Forms: ED Department Discharge Additional Instructions: You have been evaluated and treated for fall while standing, right rib pain. No identified right rib fractures. Lidocaine patch applied while in emergency room. One hydrocodone5/325 provided in emergency room for pain. You can take acetaminophen 650 mg by mouth twice per day for pain as needed. Follow up with primary provider in 7 to 10 days for recheck. Return as needed, for issues or concerns. Sepsis Event Note (ED) - Evaluation Sepsis Screening Result: No Definite Risk - Focused Exam Vital Signs: Vital Signs Temp Pulse Resp BP Pulse Ox 01/06/21 15:22 36.2 C 93 14 119/64 99 01/06/21 15:18 36.2 C 93 14 119/64 99 - My Orders Last 24 Hours: My Active Orders 01/06/21 15:41 Ribs 3V wo Chest Rt [CR] Stat - Assessment/Plan Last 24 Hours: My Active Orders 01/06/21 15:41 Ribs 3V wo Chest Rt [CR] Stat Assessment:: Fall from standing, Rib pain on right side Plan: Patient evaluated and treated for fall while standing, right rib pain. No identified right rib fractures. Lidocaine patch applied while in emergency room. One hydrocodone5/325 provided in emergency room for pain. She can take acetaminophen 650 mg by mouth twice per day for pain as needed. Follow up with primary provider in 7 to 10 days for recheck. Return as needed, for issues or concerns.
[2021-01-06] MEDS ORDERED: Acetaminophen/HYDROcodone 325-10 MG Tab PO ONE (15:39)
[2021-01-06] MEDS ORDERED: Acetaminophen/HYDROcodone 325-5 MG Tab PO ONE (15:40)
[2021-01-06] MEDS ORDERED: Lidocaine 5% 700 MG Patch TRDERM ONE (16:25)
--- NOTE | 2021-01-09 09:18 | CR ---
Ribs 3V wo Chest Rt CLINICAL HISTORY: Fall, posterior rib pain FINDINGS: There is no acute fracture within the ribs. No destructive changes are seen. There is no focal pleural thickening or obvious effusion. There is an old 10th rib fracture. IMPRESSION: No acute fractures
== END 2021-01-06 17:07 | disposition home or self-care (01) ==
LOC: JP.ED 15:00
DX: R07.81 Pleurodynia (principal); I25.10 Atherosclerotic heart disease of native coronary artery without angina pectoris; E78.00 Pure hypercholesterolemia, unspecified; I12.9 Hypertensive chronic kidney disease with stage 1 through stage 4 chronic kidney disease, or unspecified chronic kidney disease; I25.2 Old myocardial infarction; E11.22 Type 2 diabetes mellitus with diabetic chronic kidney disease; N18.9 Chronic kidney disease, unspecified; Z88.0 Allergy status to penicillin; Z91.018 Allergy to other foods; Z88.8 Allergy status to other drugs, medicaments and biological substances; Z79.4 Long term (current) use of insulin; W18.39XA Other fall on same level, initial encounter
CPT/HCPCS: 71101; 81003; 99283; A9270

== ENCOUNTER 2021-06-04 15:14 | Emergency (ER) | payer MEDICAID ==
[2021-06-04] MEDS ORDERED: Sodium Chloride 0.9% 1,000 ML IV SCH (15:30)
[2021-06-05] MEDS ORDERED: Ondansetron 4 MG/2 ML SDV IVPUSH ONE (00:06)
[2021-06-05] MEDS ORDERED: Prochlorperazine 10 MG/2 ML SDV IVPUSH ONE (04:48)
[2021-06-05] MEDS ORDERED: Metoclopramide 10 MG/2 ML SDV IVPUSH ONE (04:54)
[2021-06-05] MEDS ORDERED: LORazepam 2 MG/ML SDV IVPUSH ONE (08:44)
[2021-06-05] MEDS ORDERED: LORazepam 2 MG/ML SDV IVPUSH PRN (11:11)
[2021-06-05 11:27] VITALS: BP 155/84; PULSE 119
== END 2021-06-05 12:05 | disposition left against medical advice (07) ==
LOC: JP.ED 15:14
DX: F19.20 Other psychoactive substance dependence, uncomplicated (principal); F10.129 Alcohol abuse with intoxication, unspecified; I25.10 Atherosclerotic heart disease of native coronary artery without angina pectoris; E78.00 Pure hypercholesterolemia, unspecified; E11.22 Type 2 diabetes mellitus with diabetic chronic kidney disease; E11.40 Type 2 diabetes mellitus with diabetic neuropathy, unspecified; I12.9 Hypertensive chronic kidney disease with stage 1 through stage 4 chronic kidney disease, or unspecified chronic kidney disease; N18.9 Chronic kidney disease, unspecified; I25.2 Old myocardial infarction; Z91.018 Allergy to other foods; Z88.0 Allergy status to penicillin; Z79.899 Other long term (current) drug therapy; Z79.4 Long term (current) use of insulin; Y90.8 Blood alcohol level of 240 mg/100 ml or more
CPT/HCPCS: 36415; 80048; 80053; 80305; 80307; 82803; 85025; 96374; 96375; 96376; 99284; J2060; J2405; J2765; J7030

== ENCOUNTER 2021-10-04 19:30 | Emergency (ER) | payer MEDICAID ==
[2021-10-04 20:38] LABS: ESTIMATED GFR 53 mL/min (>60)
[2021-10-05 03:42] VITALS: BP 140/79; PULSE 103
== END 2021-10-05 06:56 | disposition home or self-care (01) ==
LOC: JP.ED 19:30
DX: F10.229 Alcohol dependence with intoxication, unspecified (principal); E11.22 Type 2 diabetes mellitus with diabetic chronic kidney disease; E11.40 Type 2 diabetes mellitus with diabetic neuropathy, unspecified; I12.9 Hypertensive chronic kidney disease with stage 1 through stage 4 chronic kidney disease, or unspecified chronic kidney disease; N18.9 Chronic kidney disease, unspecified; I25.2 Old myocardial infarction; I25.10 Atherosclerotic heart disease of native coronary artery without angina pectoris; E78.00 Pure hypercholesterolemia, unspecified; Z88.0 Allergy status to penicillin; Z91.018 Allergy to other foods; Z88.8 Allergy status to other drugs, medicaments and biological substances; Y90.8 Blood alcohol level of 240 mg/100 ml or more
CPT/HCPCS: 36415; 80053; 80305-QW; 80307; 81003; 85025; 99284; 99285

== ENCOUNTER 2022-09-09 19:09 | Inpatient (IN) | payer MEDICAID, OTHER ==
[2022-09-09] MEDS ORDERED: LORazepam 2 MG/ML SDV IVPUSH ONE (19:39)
[2022-09-09 19:53] LABS: BASOPHILS ABSOLUTE AUTO 0.01 K/uL (0.00-0.10); BASOPHILS PERCENT AUTO 0.2 % (0.1-1.3); EOSINOPHILS ABSOLUTE AUTO 0.02 K/uL (0.00-0.40); EOSINOPHILS PERCENT AUTO 0.4 % (0.0-5.4); HEMATOCRIT 30.5 % (34.3-46.0); HEMOGLOBIN 8.7 g/dL (11.2-15.5); IMMATURE GRAN ABSOLUTE AUTO 0.03 K/uL (0.00-0.23); IMMATURE GRAN PERCENT AUTO 0.6 % (0.0-0.7); LYMPHOCYTES ABSOLUTE AUTO 0.59 K/uL (0.8-3.3); LYMPHOCYTES PERCENT AUTO 10.8 % (11.4-47.7); MEAN CORPUSCULAR HEMOGLOBIN 18.4 pg (31.6-35.5); MONOCYTES PERCENT AUTO 5.5 % (3.3-12.6); NEUTROPHILS PERCENT AUTO 82.5 % (40.0-78.1); PLATELET COUNT,PLT 165 K/uL (130-375); RED BLOOD CELL COUNT 4.72 M/uL (3.77-5.24); WHITE BLOOD CELL COUNT,WBC 5.5 K/uL (3.2-11.0)
[2022-09-09] MEDS ORDERED: Sodium Chloride 0.9% 10 ML Syringe FLUSH ONE (19:57)
[2022-09-09] MEDS ORDERED: Iopamidol 612 MG/ML 100 ML Bottle IV SCH (20:00)
[2022-09-09] MEDS ORDERED: Sodium Chloride 0.9% 50 ML IV SCH (20:00)
[2022-09-09 20:01] LABS: MEAN CORPUSCULAR HGB CONC 28.5 g/dL (31.6-35.5); MEAN CORPUSCULAR VOLUME 64.6 fL (81.4-99.0)
[2022-09-09 20:15] LABS: A/G RATIO 0.5 (1.2-2.2); ALANINE AMINOTRANSFERASE,ALT 14 U/L (12-78); ALBUMIN 2.5 g/dL (3.4-5.0); ALKALINE PHOSPHATASE 137 U/L (46-116); ASPARTATE AMNIOTRANSFERASE,AST 20 U/L (15-37); BILIRUBIN TOTAL 0.6 mg/dL (0.2-1.0); BLOOD UREA NITROGEN,BUN 6 mg/dL (7-18); C-REACTIVE PROTEIN 3.81 mg/dL (0.0-0.3); CALCIUM 8.1 mg/dL (8.5-10.1); CARBON DIOXIDE,CO2 25 mmol/L (21-32); CHLORIDE,CL 96 mmol/L (100-108); CREATININE 1.2 mg/dL (0.6-1.0); ESTIMATED GFR 53 mL/min (>60); GLUCOSE RANDOM 344 mg/dL (74-106); LIPASE 77 U/L (73-393); POTASSIUM,K 3.2 mmol/L (3.6-5.2); PROTEIN TOTAL,TP 7.2 g/dL (6.4-8.2); SODIUM,NA 132 mmol/L (140-148)
[2022-09-09 20:20] LABS: ANION GAP 14.2 mmol/L (5.0-14.0)
[2022-09-09 20:21] LABS: LACTIC ACID 4.5 mmol/L (0.4-2.0)
[2022-09-09] MEDS: Sodium Chloride 0.9% 10 ML Syringe FLUSH PRN ×2 (20:28→21:26)
[2022-09-09] MEDS ORDERED: Sodium Chloride 0.9% 1,000 ML IV SCH ×3 (20:30→23:15)
[2022-09-09 20:39] LABS: APPEARANCE,URINE CLEAR (CLEAR); BILIRUBIN,URINE NEGATIVE (NEGATIVE); COLOR,URINE YELLOW (YELLOW); GLUCOSE,URINE 500 mg/dL (NEGATIVE); KETONES,URINE NEGATIVE (NEGATIVE); LEUKOCYTE ESTERASE,URINE NEGATIVE (NEGATIVE); NITRITE,URINE NEGATIVE (NEGATIVE); OCCULT BLOOD,URINE NEGATIVE (NEGATIVE); PROTEIN,URINE NEGATIVE (NEGATIVE); UROBILINOGEN,URINE 0.2 EU/dL (0.2-1.0)
[2022-09-09 20:51] LABS: AMORPHOUS SEDIMENT,URINE NOT SEEN; BACTERIA,URINE FEW; EPITHELIAL CELLS,URINE FEW; MUCUS,URINE RARE; RBC,URINE 0-5 (0-5); WBC,URINE 0-5 (0-5)
[2022-09-09 21:11] LABS: BASE EXCESS VENOUS -1.1 mm/L; BICARBONATE,VENOUS 23.2 mmol/L; CARBOXYHEMOGLOBIN 6.4 % (0.0-1.6); METHEMOGLOBIN 0.9 %; O2 SATURATION VENOUS 90.7; OXYHEMOGLOBIN 84.1 %; PCO2 VENOUS 39.9 mm/Hg; PH,VENOUS 7.383 (7.350-7.450); PO2 VENOUS 63.4 mm/Hg; TOTAL HEMOGLOBIN 8.6 g/dL (12.0-16.0)
[2022-09-09] MEDS ORDERED: Acetaminophen 325 MG Tab PO PRN (23:01)
[2022-09-09] MEDS ORDERED: Albuterol/Ipratropium 3.0-0.5 MG/3 ML Neb Soln NEB PRN (23:01)
[2022-09-09] MEDS ORDERED: Ondansetron 4 MG Tab.DIS PO PRN (23:01)
[2022-09-09] MEDS ORDERED: Ondansetron 4 MG/2 ML SDV IV PRN (23:01)
[2022-09-09] MEDS ORDERED: Magnesium Hydroxide 400 MG/5 ML Susp 30 ML Cup PO PRN (23:01)
[2022-09-09] MEDS ORDERED: Morphine 2 MG/ML SYRINGE IVPUSH PRN (23:01)
[2022-09-09] MEDS ORDERED: LORazepam 1 MG Tab PO SCH (23:15)
[2022-09-09] MEDS ORDERED: Insulin Lispro 100 Unit/ML 3 ML KwikPen SUBCUT SCH (23:15)
[2022-09-09] MEDS ORDERED: LORazepam 2 MG/ML SDV IV SCH (23:15)
[2022-09-09] MEDS ORDERED: Glucagon,Human Recombinant 1 MG Vial IM PRN ×2 (23:16→23:17)
[2022-09-09] MEDS ORDERED: 50% Dextrose in Water 50 ML Syringe IVPUSH PRN ×2 (23:16→23:17)
[2022-09-09] MEDS ORDERED: QUEtiapine 25 MG Tab PO PRN (23:17)
[2022-09-09] MEDS ORDERED: Insulin Glargine,Human Rec. Analog 100 Units/ML 3 ML Pen SUBCUT SCH (23:30)
[2022-09-09] MEDS: LORazepam 2 MG/ML SDV IVPUSH PRN (23:54)
[2022-09-10] MEDS ORDERED: Pantoprazole 40 MG Vial IV SCH
[2022-09-10] MEDS ORDERED: Potassium Chloride Riders 40 MEQ in Premix Bag 1 BAG IV ONE (00:06)
[2022-09-10] MEDS: Insulin Lispro 100 Unit/ML 3 ML KwikPen SUBCUT SCH ×3 (00:22→12:05)
[2022-09-10] MEDS: methylPREDNISolone Sodium Succinate 40 MG/1 ML SDV IVPUSH SCH ×2 (00:30→12:11)
[2022-09-10] MEDS: Potassium Chloride 10 MEQ in Premix Bag 1 BAG IV SCH ×4 (00:55→04:25)
[2022-09-10] MEDS: LORazepam 2 MG/ML SDV IVPUSH PRN (04:26)
[2022-09-10 05:44] LABS: HEMOGLOBIN 8.7 g/dL (11.2-15.5); MEAN CORPUSCULAR HEMOGLOBIN 18.3 pg (31.6-35.5); MEAN CORPUSCULAR HGB CONC 28.1 g/dL (31.6-35.5); MEAN CORPUSCULAR VOLUME 65.3 fL (81.4-99.0); WHITE BLOOD CELL COUNT,WBC 2.9 K/uL (3.2-11.0)
[2022-09-10 05:58] LABS: RED BLOOD CELL COUNT 4.75 M/uL (3.77-5.24)
[2022-09-10 06:00] LABS: A/G RATIO 0.5 (1.2-2.2); ALANINE AMINOTRANSFERASE,ALT 13 U/L (12-78); ALBUMIN 2.4 g/dL (3.4-5.0); ALKALINE PHOSPHATASE 134 U/L (46-116); ASPARTATE AMNIOTRANSFERASE,AST 20 U/L (15-37); BILIRUBIN TOTAL 0.5 mg/dL (0.2-1.0); BLOOD UREA NITROGEN,BUN 5 mg/dL (7-18); C-REACTIVE PROTEIN 3.06 mg/dL (0.0-0.3); CALCIUM 8.1 mg/dL (8.5-10.1); CARBON DIOXIDE,CO2 25 mmol/L (21-32); CHLORIDE,CL 102 mmol/L (100-108); CREATININE 0.9 mg/dL (0.6-1.0); EST CRCL DRUG DOSING (CG) 67.87 mL/min; ESTIMATED GFR 75 mL/min (>60); GLUCOSE RANDOM 268 mg/dL (74-106); POTASSIUM,K 4.8 mmol/L (3.6-5.2); PROTEIN TOTAL,TP 7.1 g/dL (6.4-8.2); SODIUM,NA 136 mmol/L (140-148)
[2022-09-10 06:02] LABS: ANION GAP 13.8 mmol/L (5.0-14.0)
[2022-09-10 08:20] LABS: HEMOGLOBIN A1C 8.9 % (4.5-6.2)
[2022-09-10] MEDS: Gabapentin 400 MG Cap PO SCH ×2 (08:37→14:26)
[2022-09-10] MEDS ORDERED: Insulin Glargine,Human Rec. Analog 100 Units/ML 3 ML Pen SUBCUT SCH (09:00)
[2022-09-10] MEDS ORDERED: Furosemide 20 MG Tab PO SCH (09:00)
[2022-09-10] MEDS ORDERED: Folic Acid 1 MG Tab PO SCH (09:00)
[2022-09-10] MEDS ORDERED: Thiamine 100 MG Tab PO SCH (09:00)
[2022-09-10] MEDS ORDERED: Spironolactone 25 MG Tab PO SCH (09:00)
[2022-09-10] MEDS ORDERED: Nicotine 21 MG/24 Hr Patch TRDERM SCH (09:00)
[2022-09-10] MEDS ORDERED: Lidocaine 1% 10 ML MDV INJECT ONE (12:00)
[2022-09-10 14:31] VITALS: BP 133/83; PULSE 114
== END 2022-09-10 15:54 | disposition home or self-care (01) | DRG 432 ==
LOC: JP.ED 19:09 → JP.ICU 22:42 → MERGE 22:42 → EEVIPCON 22:42
PROVIDERS: ADMIT Hospitalist; ATTEND Hospitalist
PROC: 0W9G3ZZ Drainage of Peritoneal Cavity, Percutaneous Approach (ICD-10-PCS; principal; 2022-09-09)
DX: K70.31 Alcoholic cirrhosis of liver with ascites (principal); J96.01 Acute respiratory failure with hypoxia; E87.1 Hypo-osmolality and hyponatremia; F10.139 Alcohol abuse with withdrawal, unspecified; E46 Unspecified protein-calorie malnutrition; E87.6 Hypokalemia; E11.65 Type 2 diabetes mellitus with hyperglycemia; F10.129 Alcohol abuse with intoxication, unspecified; E11.42 Type 2 diabetes mellitus with diabetic polyneuropathy; Y90.7 Blood alcohol level of 200-239 mg/100 ml; D50.9 Iron deficiency anemia, unspecified; I10 Essential (primary) hypertension; F32.A Depression, unspecified; F17.210 Nicotine dependence, cigarettes, uncomplicated; D69.6 Thrombocytopenia, unspecified; I25.10 Atherosclerotic heart disease of native coronary artery without angina pectoris; F43.10 Post-traumatic stress disorder, unspecified; Z20.822 Contact with and (suspected) exposure to COVID-19; Z68.25 Body mass index [BMI] 25.0-25.9, adult; Z79.51 Long term (current) use of inhaled steroids; Z79.4 Long term (current) use of insulin; Z79.899 Other long term (current) drug therapy; Z88.2 Allergy status to sulfonamides; Z88.8 Allergy status to other drugs, medicaments and biological substances; Z88.0 Allergy status to penicillin; Z91.013 Allergy to seafood; Z98.890 Other specified postprocedural states
CPT/HCPCS: 36415; 49083; 71045; 71045-26; 74177; 80053; 80307; 81001; 82009; 82272; 82803; 82947; 83036; 83605; 83690; 85025; 85027; 86140; 86850; 86900; 86901; 87040; 96360; 96361; 99222; 99238; 99285-25; A9270-GY; C1729; C9113; J1815; J1815-GY; J2060; J2920; J3480; J3490; J7030; Q9967; U0002

== ENCOUNTER 2022-09-12 16:50 | Emergency (ER) | payer MEDICAID ==
[2022-09-12 17:18] VITALS: BP 147/82; PULSE 74
== END 2022-09-12 21:34 | disposition home or self-care (01) ==
LOC: JP.ED 16:50
DX: K70.31 Alcoholic cirrhosis of liver with ascites (principal); F10.929 Alcohol use, unspecified with intoxication, unspecified; I25.10 Atherosclerotic heart disease of native coronary artery without angina pectoris; I12.9 Hypertensive chronic kidney disease with stage 1 through stage 4 chronic kidney disease, or unspecified chronic kidney disease; E11.22 Type 2 diabetes mellitus with diabetic chronic kidney disease; E11.40 Type 2 diabetes mellitus with diabetic neuropathy, unspecified; N18.9 Chronic kidney disease, unspecified; I25.2 Old myocardial infarction; Z88.0 Allergy status to penicillin; Z91.018 Allergy to other foods; Z88.1 Allergy status to other antibiotic agents; Z91.013 Allergy to seafood; Z88.8 Allergy status to other drugs, medicaments and biological substances; Y90.1 Blood alcohol level of 20-39 mg/100 ml
CPT/HCPCS: 36415; 80307; 99284

== ENCOUNTER 2023-02-14 19:26 | Emergency (ER) | payer MEDICAID ==
[2023-02-14] MEDS ORDERED: Sodium Chloride 0.9% 1,000 ML IV ONE ×2 (19:45→20:26)
[2023-02-14 19:52] LABS: BASOPHILS PERCENT AUTO 0.2 % (0.1-1.3); CARBOXYHEMOGLOBIN 4.9 % (0.0-1.6); EOSINOPHILS ABSOLUTE AUTO 0.06 K/uL (0.00-0.40); EOSINOPHILS PERCENT AUTO 1.1 % (0.0-5.4); HEMATOCRIT 28.5 % (34.3-46.0); HEMOGLOBIN 9.2 g/dL (11.2-15.5); IMMATURE GRAN PERCENT AUTO 0.4 % (0.0-0.7); LYMPHOCYTES ABSOLUTE AUTO 0.86 K/uL (0.8-3.3); LYMPHOCYTES PERCENT AUTO 15.9 % (11.4-47.7); MEAN CORPUSCULAR HEMOGLOBIN 26.2 pg (31.6-35.5); MEAN CORPUSCULAR HGB CONC 32.3 g/dL (31.6-35.5); MEAN CORPUSCULAR VOLUME 81.2 fL (81.4-99.0); METHEMOGLOBIN 1.5 %; MONOCYTES ABSOLUTE AUTO 0.34 K/uL (0.20-0.90); MONOCYTES PERCENT AUTO 6.3 % (3.3-12.6); NEUTROPHILS ABSOLUTE AUTO 4.12 K/uL (1.0-7.6); NEUTROPHILS PERCENT AUTO 76.1 % (40.0-78.1); O2 SATURATION VENOUS 60.1; OXYHEMOGLOBIN 56.3 %; PH,VENOUS 7.355 (7.350-7.450); PLATELET COUNT,PLT 104 K/uL (130-375); RED BLOOD CELL COUNT 3.51 M/uL (3.77-5.24); TOTAL HEMOGLOBIN 9.8 g/dL (12.0-16.0); WHITE BLOOD CELL COUNT,WBC 5.4 K/uL (3.2-11.0)
[2023-02-14 19:53] LABS: BASOPHILS ABSOLUTE AUTO 0.01 K/uL (0.00-0.10); IMMATURE GRAN ABSOLUTE AUTO 0.02 K/uL (0.00-0.23)
[2023-02-14 20:02] LABS: BICARBONATE,VENOUS 22.1 mmol/L; PCO2 VENOUS 40.7 mm/Hg
[2023-02-14 20:03] LABS: BASE EXCESS VENOUS -2.6 mm/L
[2023-02-14 20:14] LABS: A/G RATIO 0.7 (1.2-2.2); ALANINE AMINOTRANSFERASE,ALT 8 U/L (12-78); ALBUMIN 2.4 g/dL (3.4-5.0); ALKALINE PHOSPHATASE 159 U/L (46-116); ASPARTATE AMNIOTRANSFERASE,AST 25 U/L (15-37); BILIRUBIN TOTAL 0.5 mg/dL (0.2-1.0); BLOOD UREA NITROGEN,BUN 7 mg/dL (7-18); C-REACTIVE PROTEIN 1.94 mg/dL (0.0-0.3); CALCIUM 7.9 mg/dL (8.5-10.1); CARBON DIOXIDE,CO2 23 mmol/L (21-32); CHLORIDE,CL 104 mmol/L (100-108); CREATININE 1.2 mg/dL (0.6-1.0); EST CRCL DRUG DOSING (CG) 44.66 mL/min; ESTIMATED GFR 53 mL/min (>60); GLUCOSE RANDOM 249 mg/dL (74-106); PROTEIN TOTAL,TP 5.9 g/dL (6.4-8.2); SODIUM,NA 137 mmol/L (140-148)
[2023-02-14] MEDS ORDERED: Norepinephrine Bit/D5W Premix 4 MG in Premix Bag 1 BAG IV SCH (20:30)
[2023-02-14] MEDS ORDERED: Sodium Chloride 0.9% 50 ML IV SCH (21:00)
[2023-02-14] MEDS ORDERED: Iopamidol 612 MG/ML 100 ML Bottle IV SCH (21:00)
[2023-02-14 21:52] LABS: APPEARANCE,URINE CLEAR (CLEAR); BILIRUBIN,URINE NEGATIVE (NEGATIVE); COLOR,URINE YELLOW (YELLOW); GLUCOSE,URINE NEGATIVE (NEGATIVE); KETONES,URINE NEGATIVE (NEGATIVE); LEUKOCYTE ESTERASE,URINE NEGATIVE (NEGATIVE); NITRITE,URINE NEGATIVE (NEGATIVE); OCCULT BLOOD,URINE TRACE-INTACT (NEGATIVE); PROTEIN,URINE NEGATIVE (NEGATIVE); UROBILINOGEN,URINE 0.2 EU/dL (0.2-1.0)
[2023-02-14 21:58] LABS: AMORPHOUS SEDIMENT,URINE NOT SEEN; BACTERIA,URINE NOT SEEN; EPITHELIAL CELLS,URINE RARE; MUCUS,URINE NOT SEEN; RBC,URINE 0-5 (0-5); WBC,URINE 0-5 (0-5)
[2023-02-14] MEDS ORDERED: metroNIDAZOLE/Normal Saline 500 MG in Premix Bag 1 BAG IV ONE (22:03)
[2023-02-14] MEDS ORDERED: cefTRIAXone 2 GM in Sodium Chloride 0.9% 50 ML IV ONE (22:03)
[2023-02-14 23:52] LABS: INR 1.2; PROTHROMBIN TIME 11.6 sec (9.2-10.6)
[2023-02-15 00:13] VITALS: BP 94/53; PULSE 109
[2023-02-15] MEDS ORDERED: Haloperidol Lactate 5 MG/ML SDV IVPUSH ONE (00:46)
[2023-02-15] MEDS ORDERED: LORazepam 2 MG/ML SDV IVPUSH ONE (01:05)
== END 2023-02-15 01:27 | disposition other institution (70) ==
LOC: JP.ED 19:26
DX: A41.9 Sepsis, unspecified organism (principal); R65.21 Severe sepsis with septic shock; I12.9 Hypertensive chronic kidney disease with stage 1 through stage 4 chronic kidney disease, or unspecified chronic kidney disease; F10.129 Alcohol abuse with intoxication, unspecified; N18.9 Chronic kidney disease, unspecified; E78.00 Pure hypercholesterolemia, unspecified; I25.2 Old myocardial infarction; I25.10 Atherosclerotic heart disease of native coronary artery without angina pectoris; E11.22 Type 2 diabetes mellitus with diabetic chronic kidney disease; E11.40 Type 2 diabetes mellitus with diabetic neuropathy, unspecified; Z79.84 Long term (current) use of oral hypoglycemic drugs; Z79.899 Other long term (current) drug therapy; Z91.018 Allergy to other foods; Z88.0 Allergy status to penicillin; Z91.013 Allergy to seafood; Z88.8 Allergy status to other drugs, medicaments and biological substances; Z88.1 Allergy status to other antibiotic agents; Y90.7 Blood alcohol level of 200-239 mg/100 ml
CPT/HCPCS: 36415; 71260; 74177; 80053; 80307; 81001; 82803; 83605; 83735; 85025; 85610; 86140; 87040; 96361; 96365; 96366; 96368; 96375; 99285; J0696; J1630; J2060; J3370; J3490; J7030; J7050; Q9967

== ENCOUNTER 2023-03-06 18:00 | Emergency (ER) | payer MEDICAID ==
[2023-03-06 18:18] VITALS: BP 133/83; PULSE 115
[2023-03-06 18:36] LABS: BASOPHILS ABSOLUTE AUTO 0.01 K/uL (0.00-0.10); BASOPHILS PERCENT AUTO 0.1 % (0.1-1.3); EOSINOPHILS ABSOLUTE AUTO 0.04 K/uL (0.00-0.40); EOSINOPHILS PERCENT AUTO 0.5 % (0.0-5.4); HEMATOCRIT 35.8 % (34.3-46.0); HEMOGLOBIN 11.6 g/dL (11.2-15.5); IMMATURE GRAN ABSOLUTE AUTO 0.02 K/uL (0.00-0.23); IMMATURE GRAN PERCENT AUTO 0.3 % (0.0-0.7); LYMPHOCYTES ABSOLUTE AUTO 0.82 K/uL (0.8-3.3); LYMPHOCYTES PERCENT AUTO 10.5 % (11.4-47.7); MEAN CORPUSCULAR HEMOGLOBIN 27.1 pg (31.6-35.5); MEAN CORPUSCULAR HGB CONC 32.4 g/dL (31.6-35.5); MEAN CORPUSCULAR VOLUME 83.6 fL (81.4-99.0); MONOCYTES ABSOLUTE AUTO 0.46 K/uL (0.20-0.90); MONOCYTES PERCENT AUTO 5.9 % (3.3-12.6); NEUTROPHILS ABSOLUTE AUTO 6.46 K/uL (1.0-7.6); NEUTROPHILS PERCENT AUTO 82.7 % (40.0-78.1); PLATELET COUNT,PLT 84 K/uL (130-375); RED BLOOD CELL COUNT 4.28 M/uL (3.77-5.24); WHITE BLOOD CELL COUNT,WBC 7.8 K/uL (3.2-11.0)
[2023-03-06 18:37] LABS: AMPHETAMINES SCREEN, URINE NEGATIVE (NEGATIVE); BARBITURATE SCREEN,URINE NEGATIVE (NEGATIVE); BENZODIAZEPINES SCREEN,URINE NEGATIVE (NEGATIVE); METHADONE SCREEN, URINE NEGATIVE (NEGATIVE); METHAMPHETAMINES SCREEN, URINE NEGATIVE (NEGATIVE); OXYCODONE SCREEN,URINE NEGATIVE (NEGATIVE); PROPOXYPHENE SCREEN,URINE NEGATIVE (NEGATIVE); THC SCREEN,URINE 50 NG/ML PRESUMPTIVE POSITIVE (NEGATIVE)
[2023-03-06] MEDS ORDERED: LORazepam 1 MG Tab PO ONE (18:41)
[2023-03-06] MEDS ORDERED: Albuterol/Ipratropium 3.0-0.5 MG/3 ML Neb Soln NEB ONE (18:41)
[2023-03-06 18:52] LABS: ANION GAP 16.4 mmol/L (5.0-14.0); CALCIUM 9.1 mg/dL (8.5-10.1); CREATININE 1.1 mg/dL (0.6-1.0); EST CRCL DRUG DOSING (CG) 48.73 mL/min; POTASSIUM,K 4.4 mmol/L (3.6-5.2)
== END 2023-03-06 19:40 | disposition other institution (70) ==
LOC: JP.ED 18:00
DX: F10.139 Alcohol abuse with withdrawal, unspecified (principal); I25.10 Atherosclerotic heart disease of native coronary artery without angina pectoris; I25.2 Old myocardial infarction; I12.9 Hypertensive chronic kidney disease with stage 1 through stage 4 chronic kidney disease, or unspecified chronic kidney disease; E11.22 Type 2 diabetes mellitus with diabetic chronic kidney disease; N18.9 Chronic kidney disease, unspecified; N17.9 Acute kidney failure, unspecified; D63.1 Anemia in chronic kidney disease; E11.40 Type 2 diabetes mellitus with diabetic neuropathy, unspecified; F17.210 Nicotine dependence, cigarettes, uncomplicated; Y90.6 Blood alcohol level of 120-199 mg/100 ml; Z91.013 Allergy to seafood; Z91.018 Allergy to other foods; Z88.0 Allergy status to penicillin; Z88.1 Allergy status to other antibiotic agents; Z88.8 Allergy status to other drugs, medicaments and biological substances; Z79.899 Other long term (current) drug therapy; Z79.4 Long term (current) use of insulin
CPT/HCPCS: 36415; 80048; 80305-QW; 80307; 85025; 94640; 99283; 99285; A9270-GY; J7620

== ENCOUNTER 2023-03-08 21:05 | Emergency (ER) | payer MEDICAID ==
[2023-03-08 21:31] VITALS: BP 89/47; PULSE 104
[2023-03-08] MEDS ORDERED: Albuterol/Ipratropium 3.0-0.5 MG/3 ML Neb Soln NEB ONE (21:36)
[2023-03-08] MEDS ORDERED: Albuterol 6.7 GM Inhaler INH ONE (22:43)
== END 2023-03-08 22:49 | disposition other institution (70) ==
LOC: JP.ED 21:05
DX: J20.8 Acute bronchitis due to other specified organisms (principal); I10 Essential (primary) hypertension; I25.2 Old myocardial infarction; I25.10 Atherosclerotic heart disease of native coronary artery without angina pectoris; E11.9 Type 2 diabetes mellitus without complications; Z88.0 Allergy status to penicillin; Z88.8 Allergy status to other drugs, medicaments and biological substances; Z91.018 Allergy to other foods; Z91.013 Allergy to seafood; Z79.2 Long term (current) use of antibiotics; Z79.899 Other long term (current) drug therapy; F17.210 Nicotine dependence, cigarettes, uncomplicated
CPT/HCPCS: 71046; 71046-26; 94640; 99283; 99285; A9270-GY; C1758; J7620